=== PATIENT | female | born 1960 | race Two or more races ===

== ENCOUNTER 2020-08-09 13:04 | Outpatient (REF) | payer OTHER, SELFPAY ==
--- NOTE | 2020-08-09 13:03 | CT_ITS ---
EXAMINATION: CT CHEST SCREENING CLINICAL INFORMATION: Nicotine dependence. COMPARISON: CT chest 08/03/2019. TECHNIQUE: Multidetector volumetric CT imaging of the chest is performed without contrast using low dose technique. Additional 2D coronal and sagittal reformatted images and axial 3D maximum intensity projection (MIP) images are generated on the CT workstation. This CT examination was performed using dose optimization techniques as appropriate, variously including the following: *Automated exposure control *Adjustment of mA and/or kV according to patient size (this includes techniques or standardized protocols for targeted exams where dose is matched to indication/reason for exam; i.e. extremities or head) *Use of iterative reconstruction technique DLP: 56 mGy-cm FINDINGS: LUNGS: There is a 4 mm subpleural nodule right lower lobe image 184/6. No additional nodule is seen. The lungs are expanded and clear. MEDIASTINUM: The thyroid lobes are symmetrical and normal. Central trachea and the bronchi are widely patent. Heart size and the great vessels are normal caliber. No pericardial effusion seen. PLEURA: There is no pleural effusion. No pleural mass or thickening. AXILLA: No lymphadenopathy. UPPER ABDOMEN: Visualized liver, spleen, pancreas and bilateral adrenal glands are unremarkable. OSSEOUS STRUCTURES: No lytic or sclerotic process seen. CT/CT lung screening IMPRESSION: Unremarkable examination. ASSESSMENT: Lung-RADS category 2: Benign RECOMMENDATION: Routine low-dose annual CT chest.
== END 2020-08-09 13:05 | disposition home or self-care (01) ==
LOC: HO.CT 13:04
PROVIDERS: Visit Provider Physician Assistant Medical
DX: Z12.2 Encounter for screening for malignant neoplasm of respiratory organs (principal); Z87.891 Personal history of nicotine dependence
CPT/HCPCS: 71250

== ENCOUNTER → 2020-09-18 12:45 | Outpatient (BNVA) | payer OTHER, SELFPAY | PROVIDERS: PCP Physician Assistant; Visit Provider Hospitalist | DX: G47.33 Obstructive sleep apnea (adult) (pediatric) (principal); R07.9 Chest pain, unspecified; R91.8 Other nonspecific abnormal finding of lung field; J45.909 Unspecified asthma, uncomplicated; Z99.89 Dependence on other enabling machines and devices | CPT/HCPCS: 99212 ==

== ENCOUNTER → 2020-10-16 13:28 | Outpatient (BNVA) | payer OTHER, SELFPAY | PROVIDERS: PCP Physician Assistant; Visit Provider Internal Medicine | DX: R07.2 Precordial pain (principal); R06.02 Shortness of breath; G47.33 Obstructive sleep apnea (adult) (pediatric); Z99.89 Dependence on other enabling machines and devices | CPT/HCPCS: 93005; 99202 ==

== ENCOUNTER → 2020-11-12 08:20 | Outpatient (REF) | payer OTHER, SELFPAY ==
--- NOTE | 2020-11-12 08:24 | CA_ITS ---
Transthoracic Echocardiogram Patient (Last, First, Middle): Zainab Wills, Gender: Female Date of : 1960 Age: 59 Procedure Date: 11/12/2020 Procedure Type: Transthoracic Echocardiogram Location: OP Height: 157.48 cm Weight: 89.81 kg BSA: 1.90 m2 Heart Rate: bpm BP: 136 / 80 mmHg Health Care Administrator: ANJELICA Alva MD: Leonel Johnson MD [employer] Operator: Hung Shipman MD Symptoms: R06.02 - Shortness of breath Study Quality: Fair ECG Rhythm: Sinus Conclusions: - 1. Normal LV systolic function with grade 1 diastolic dysfunction 2. Normal cardiac valvular Doppler 3. No pericardial effusion Findings Left Ventricle Normal left ventricular size, thickness, and systolic function. The visually estimated ejection fraction is between 60-65%. Spectral Doppler is indicative of an impaired relaxation filling pattern. E/E prime ratio is <8, consistent with normal filling pressures. Evidence suggests grade I (mild) diastolic dysfunction. Right Ventricle Normal right ventricular cavity size and systolic function. Atria Both atria are normal in size. There is lipomatous hypertrophy of the interatrial septum. There is no evidence of interatrial shunt. Aortic Valve The aortic valve structure and function is likely normal. There is no aortic valve stenosis. There is no aortic valve regurgitation. Mitral Valve Normal mitral valve structure and function. There is trace mitral valve regurgitation. There is no mitral valve stenosis. Pulmonic Valve The pulmonic valve was not well visualized. Tricuspid Valve Likely normal tricuspid valve structure and function. Tricuspid regurgitation envelope is inadequate for calculation of right ventricular systolic pressure. Great Vessels All visible segments of the aorta are normal in size. The pulmonary artery was not well visualized. Venous The inferior vena cava is normal in size and collapses greater than 50% with inspiration. Pericardium/Pleural There is no evidence of pericardial effusion. Prior Study Comparison No significant change compared to prior study dated: 08/12/2019. Measurements 2D Linear Measurements IVSd: 0.99 0.6-0.9/0.6-1.0 cm LVIDd: 4.10 3.9-5.3/4.2-5.9 cm LVIDd Index: 2.16 2.4-3.2/2.2-3.1 cm/m2 LVIDs: 2.57 2.0-3.6 cm LVPWd: 1.00 0.7-1.1 cm Ao Root: 3.00 2.1-3.5 cm LA Diam: 3.20 2.7-3.8/3.0-4.0 cm LAIDs Index: 1.68 1.5-2.3 cm/m2 LV Mass: 163.69 67-162/88-224 g LV Mass Index: 86.15 43-95/49-115 g/m2 LVOT Diam: 2.10 3.0+(-)1.3 cm 2D Systolic Function EF 4C: 65.50 >55% EF 2C: 53.50 >55% EF BiP: 60.70 >55% Mitral Valve MV Pk E: 0.80 MV PK A: 0.98 MV Decel Time: 182.00 E/A: 0.80 E'Lateral: 7.40 E'Medial: 6.64 E/E' Med: 12.10 E/E' Lat: 10.90 PHT: 53.00 MVA PHT: 4.15 Decel [place]: 4.42 Aortic Valve AoV Pk Richie: 1.35 AoV Mn Richie: 0.83 AoV VTI: 0.21 AoV Pk Grad: 7.00 Aov Mn Grad: 3.00 NARCISA Cont.VTI: 2.87 LVOT LVOT Pk Richie: 1.12 LVOT Mn Richie: 0.68 LVOT VTI: 0.17 LVOT Pk Grad: 5.00 LVOT Mn Grad: 2.00 LVOT Diam: 2.10 LVOT Area: 3.46 Diastolic Function MV Pk E: 0.80 MV Pk A: 0.98 E/A: 0.80 E'Medial: 6.64 E/E' Med: 12.10 E' Laterial: 7.40 E/E' Lat: 10.90 Great Vessels Aorta Ao Root-2D: 3.00 2.0-3.7 cm Ao Asc: 3.00 2.1-3.4 cm Updated in Other Vendor System with Status of Final Hung Shipman MD electronically signed on 11/13/2020 5:06:32 PM with status of Final
== END ==
LOC: HO.CARD 08:20
PROVIDERS: Visit Provider Internal Medicine
DX: R07.2 Precordial pain (principal); R06.02 Shortness of breath
CPT/HCPCS: 93306

== ENCOUNTER → 2020-11-23 07:38 | Outpatient (REF) | payer OTHER, SELFPAY ==
--- NOTE | ~2020-11-23 | NM_ITS ---
Myocardial perfusion study Indication: Precordial pain to evaluate for myocardial ischemia Technique: The patient was brought in for a Lexiscan perfusion study on 11/23/2020. Patient performed low-level exercise and was injected 0.4 mg of Lexiscan intravenously. Within a minute of injection, 35 mCi of sestamibi was given intravenously. Images were obtained using the SPECT gamma camera interlaced with the gating device. Images were obtained in supine position. Resting perfusion study was performed on 11/23/2020. Patient was administered 13 mCi of sestamibi intravenously at rest. Images were then obtained in supine position. Images obtained with and without CT attenuation. Total DLP 89 mGy-cm. Images were processed with the software and compared side to side in short axis, horizontal long axis and vertical long axis views. Findings: The stress perfusion study showed non attenuated images show minimally reduced uptake in the distal septum, mostly normal limits. Attenuation corrected images show minimally reduced uptake in the apex of the LV myocardium.. The gated study shows normal LV systolic function with calculated LVEF of 69%. LV cavity is normal in size. The gated study shows normal systolic wall thickening and contraction of segments. Resting study shows attenuation corrected images show mildly reduced uptake in the septum and apex of the LV myocardium. Gating at rest reveals normal systolic wall motion with ejection fraction at 58%. The findings are consistent with normal myocardial perfusion. NM/NM jace perf SPECT rest & str Impression: 1. Myocardial perfusion imaging study shows normal myocardial perfusion 2. Gated LVEF is 69% 3. Transient ischemic dilatation not present EKG is nondiagnostic for ischemia
--- NOTE | 2020-11-23 07:42 | CA_ITS ---
Acquisition Time: 2020-11-23 10:30:31 Total Exercise Time: 00:02:00 Test Indications: Chest Pain Medications: Protocol: LEXISCAN Max HR: 120 BPM 74% of Pred: 162 BPM Max BP: 130/072 mmHG Max Work Load: 1.0 METS Pharmacological stress test using Lexiscan while sitting and moving her L arm. Pt reports to be feeling fatiqued after Lexiscan, denies any anginal sx. SX reversed with Aminophyline 75 mg IV. EKG with no arrhythmias, non-diagnostic for ischemia. Nuclear images to follow. Normotensive response to test. Test reviewed with Dr. Shipman. Referred By: Leonel Johnson Overread By: Jose L Noguera
[2020-11-23 11:02] LABS: Glucose, Whole Blood 79 mg/dL (60-115)
[2020-11-23 11:30] LABS: Glucose, Whole Blood 108 mg/dL (60-115)
== END ==
LOC: HO.CARD 07:38
PROVIDERS: Visit Provider Internal Medicine
DX: R07.2 Precordial pain (principal)
CPT/HCPCS: 78452; 82947; 93017; A9500; J0280; J2785

== ENCOUNTER → 2020-12-11 12:10 | Outpatient (BNVA) | payer OTHER, SELFPAY | PROVIDERS: PCP Physician Assistant; Visit Provider Internal Medicine | DX: R07.2 Precordial pain (principal); R06.02 Shortness of breath; G47.33 Obstructive sleep apnea (adult) (pediatric); R03.0 Elevated blood-pressure reading, without diagnosis of hypertension; Z99.89 Dependence on other enabling machines and devices | CPT/HCPCS: 99212 ==

== ENCOUNTER → 2020-12-20 12:54 | Outpatient (BNVA) | payer OTHER, SELFPAY | PROVIDERS: PCP Physician Assistant; Visit Provider Hospitalist | DX: R07.82 Intercostal pain (principal); G47.33 Obstructive sleep apnea (adult) (pediatric); R91.8 Other nonspecific abnormal finding of lung field; J44.9 Chronic obstructive pulmonary disease, unspecified; Z99.89 Dependence on other enabling machines and devices | CPT/HCPCS: 99212 ==

== ENCOUNTER → 2021-02-14 13:50 | Outpatient (BNVA) | payer OTHER, SELFPAY | PROVIDERS: PCP Physician Assistant; Visit Provider Hospitalist | DX: J44.9 Chronic obstructive pulmonary disease, unspecified (principal); R06.02 Shortness of breath; G47.33 Obstructive sleep apnea (adult) (pediatric); R91.8 Other nonspecific abnormal finding of lung field; J45.40 Moderate persistent asthma, uncomplicated; Z99.89 Dependence on other enabling machines and devices | CPT/HCPCS: 99212 ==

== ENCOUNTER 2021-08-23 14:15 | Outpatient (REF) | payer OTHER, SELFPAY ==
[2021-08-23 15:10] LABS: MANUAL DIFF FLAG NO
[2021-08-23 16:32] LABS: Basophils Percent Auto 0.3 % (0-2); Eosinophils Percent Auto 0.4 % (0-4); Hematocrit 37.7 % (37.0-47.0); Hemoglobin 11.8 g/dl (12.0-16.0); Imm Gran Abs Auto 0.02 X10*3/uL (0.00-0.03); Imm Gran Pct Auto 0.3 % (0.0-0.4); Lymphocytes Absolute Auto 2.3 X10*3/uL (1.2-4.9); Lymphocytes Percent Auto 32.3 % (20-40); Mean Corpuscular HGB Conc 31.3 g/dl (31.0-35.0); Mean Corpuscular Hemoglobin 25.5 pg (27.0-33.0); Mean Corpuscular Volume 81.6 fL (80.0-98.0); Mean Platelet Volume 11.9 fL (9.4-12.3); Monocytes Absolute Auto 0.3 X10*3/uL (0.1-1.2); Monocytes Percent Auto 4.6 % (2-11); Neutrophils Absolute Auto 4.5 x10*3/uL (2.0-8.3); Neutrophils Percent Auto 62.1 % (45-73); Platelet Count 234 X10*3/uL (160-400); Red Blood Count 4.62 X10*6/uL (4.20-5.50); Red Cell Distribution Width 14.2 % (11.0-16.0); White Blood Count 7.2 X10*3/uL (4.8-10.8)
[2021-08-23 17:11] LABS: Anion Gap 12 (12-20); Blood Urea Nitrogen 11 mg/dL (9-16); Calcium 9.1 mg/dL (8.4-10.2); Carbon Dioxide 28 mmol/L (22-29); Chloride 105 mmol/L (96-108); Estimated Glomerular Filt Rate > 60; Glucose Random 142 mg/dL (60-115); Potassium 3.7 mmol/L (3.3-5.1); Sodium 141 mmol/L (135-145)
[2021-08-23 17:15] LABS: Troponin-I High Sensitivity < 3.5 ng/L (<3.5-17.0)
[2021-08-23 17:35] LABS: TSH reflex Free T4 1.25 uIU/mL (0.32-4.0)
[2021-08-23 17:46] LABS: Erythrocyte Sedimentation Rate 16 MM/HR (0-20)
== END 2021-08-23 14:16 | disposition home or self-care (01) ==
LOC: HO.LAB 14:15
PROVIDERS: PCP Physician Assistant; Visit Provider Hospitalist
DX: J44.9 Chronic obstructive pulmonary disease, unspecified (principal); R00.2 Palpitations; R07.82 Intercostal pain; J45.40 Moderate persistent asthma, uncomplicated; R91.8 Other nonspecific abnormal finding of lung field; G47.33 Obstructive sleep apnea (adult) (pediatric); Z99.89 Dependence on other enabling machines and devices
CPT/HCPCS: 36415; 80048; 84443; 84484; 85025; 85652; 99212

== ENCOUNTER → 2021-12-20 14:05 | Outpatient (BNVA) | payer OTHER, SELFPAY | PROVIDERS: PCP Physician Assistant; Visit Provider Hospitalist | DX: J44.9 Chronic obstructive pulmonary disease, unspecified (principal); J45.40 Moderate persistent asthma, uncomplicated; G47.33 Obstructive sleep apnea (adult) (pediatric); R91.8 Other nonspecific abnormal finding of lung field; R00.2 Palpitations; Z99.89 Dependence on other enabling machines and devices | CPT/HCPCS: 99212 ==

== ENCOUNTER 2021-12-31 14:54 | Outpatient (REF) | payer OTHER, SELFPAY ==
--- NOTE | ~2021-12-31 | CT_ITS ---
EXAMINATION: CT CHEST SCREENING CLINICAL INFORMATION: Former smoker. Quit 5 years ago. COMPARISON: Previous chest CT scans most recent July 2020 TECHNIQUE: Multidetector volumetric CT imaging of the chest is performed without contrast using low dose technique. Additional 2D coronal and sagittal reformatted images and axial 3D maximum intensity projection (MIP) images are generated on the CT workstation. This CT examination was performed using dose optimization techniques as appropriate, variously including the following: *Automated exposure control *Adjustment of mA and/or kV according to patient size (this includes techniques or standardized protocols for targeted exams where dose is matched to indication/reason for exam; i.e. extremities or head) *Use of iterative reconstruction technique DLP: 67 mGy-cm FINDINGS: LUNGS: There is a 3 mm peripheral right lower lobe nodule axial image 246 series 5 that is stable. The lungs are otherwise clear. No other pulmonary nodule is seen. No endobronchial or endotracheal lesion is seen.. MEDIASTINUM: The mediastinum is normal. PLEURA: There is no pleural effusion. No pleural mass or thickening. AXILLA: No lymphadenopathy. UPPER ABDOMEN: Unremarkable OSSEOUS STRUCTURES: There are degenerative changes of the spine. CT/CT lung screening IMPRESSION: Stable right lower lobe nodule. ASSESSMENT: Lung-RADS category 2: Benign RECOMMENDATION: Annual low-dose chest CT follow-up recommended.
== END 2021-12-31 14:55 | disposition home or self-care (01) ==
LOC: HO.CT 14:54
PROVIDERS: Visit Provider Physician Assistant Medical
DX: Z12.2 Encounter for screening for malignant neoplasm of respiratory organs (principal); F17.200 Nicotine dependence, unspecified, uncomplicated
CPT/HCPCS: 71271

== ENCOUNTER → 2023-02-24 14:27 | Outpatient (BNVA) | payer OTHER, SELFPAY | PROVIDERS: PCP Physician Assistant; Visit Provider Hospitalist | DX: J44.9 Chronic obstructive pulmonary disease, unspecified (principal); J45.909 Unspecified asthma, uncomplicated; G47.33 Obstructive sleep apnea (adult) (pediatric); R91.8 Other nonspecific abnormal finding of lung field; R00.2 Palpitations; Z99.89 Dependence on other enabling machines and devices | CPT/HCPCS: 99212 ==

== ENCOUNTER 2023-02-27 13:05 | Outpatient (REF) | payer OTHER, SELFPAY ==
--- NOTE | ~2023-02-27 | CT_ITS ---
EXAMINATION: CT CHEST SCREENING CLINICAL INFORMATION: Former smoker. Quit 7 years ago. 80 pack year history. COMPARISON: None available. TECHNIQUE: Multidetector volumetric CT imaging of the chest is performed without contrast using low dose technique. Additional 2D coronal and sagittal reformatted images and axial 3D maximum intensity projection (MIP) images are generated on the CT workstation. This CT examination was performed using dose optimization techniques as appropriate, variously including the following: *Automated exposure control *Adjustment of mA and/or kV according to patient size (this includes techniques or standardized protocols for targeted exams where dose is matched to indication/reason for exam; i.e. extremities or head) *Use of iterative reconstruction technique DLP: 71 mGy-cm FINDINGS: LUNGS: Mild emphysema. 4 mm right lower lobe nodule axial image 239 series 5. Subsegmental atelectasis in the lingula. MEDIASTINUM: The mediastinum is normal. CORONARY ARTERY CALCIFICATION: Mild PLEURA: There is no pleural effusion. No pleural mass or thickening. AXILLA: No lymphadenopathy. UPPER ABDOMEN: Unremarkable OSSEOUS STRUCTURES: Degenerative changes of the spine. CT/CT lung screening IMPRESSION: Mild emphysema. Stable right lower lobe nodule. ASSESSMENT: Lung-RADS category 2: Benign RECOMMENDATION: Annual low-dose chest CT follow-up recommended
== END 2023-02-27 13:06 | disposition home or self-care (01) ==
LOC: HO.CT 13:05
PROVIDERS: PCP Physician Assistant; Visit Provider Physician Assistant Medical
DX: Z12.2 Encounter for screening for malignant neoplasm of respiratory organs (principal); Z87.891 Personal history of nicotine dependence
CPT/HCPCS: 71271

== ENCOUNTER 2024-03-03 14:12 | Outpatient (AMB) | payer MEDICAID, SELFPAY ==
[2024-03-03 14:33] VITALS: PULSE 89; O2SAT 98; BMI 37.3
--- NOTE | 2024-03-03 14:33 | MHC.OFFVIS ---
Vital Signs 03/03/24 14:33 Height 5 ft 2 in Weight 204 lb BMI 37.3 Pulse 89 Pulse Source Pulse Oximeter Pulse Oximetry (%) 98 Oxygen Delivery Method Room Air Intake Visit Reasons: obstructive sleep apnea Knowledge Management Consultant Required: No Allergies acetaminophen [Percocet] Allergy (Severe, Verified 03/03/24 14:34) Redness and Vomitting amoxicillin Allergy (Severe, Verified 03/03/24 14:34) Redness and Vomitting oxycodone [Percocet] Allergy (Severe, Verified 03/03/24 14:34) Redness and Vomitting HPI Comments Details: The patient is a 63-year-old woman with known history of ANN on CPAP in addition to COPD.. From the cardiac standpoint, no history of any known coronary disease myocardial infarction or any other cardiac concerns. She is morbidly obese. She has type 2 diabetes and hypertension. Her medication list is not clear. She gets exertional shortness of breath. She also gets chest discomfort at different times. Sometimes at rest and sometimes during exertion. She also feels it a lot during night times. So far, completed an echocardiogram and stress test. 2020 the patient is here for pulmonary follow-up visit. She continues uses CPAP. CPAP therapy continues to be affecting beneficial. She does use it for more than 4 hours a night. We did download her machine her AHI is down to 2.3. It appears that the machine only goes up to 10 cm of water. She appears to need more than that. I will increase it to 12 cm of water maximum pressure. Patient needs to get supplies from [employer]. I will send a prescription over to them. In the meantime her respiratory status has been stable on the current respiratory inhaler. She has not had to use her rescue inhaler. Her biggest complaint is his left-sided chest discomfort. She did have cardiac stress test which was negative for any ischemic heart disease. The patient does have tenderness on palpation over the costochondral joints. 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 Patient is very uncomfortable. Makes it hard for her to breathe in because of the discomfort. She denies any trauma to the chest. She does have reflux disease she does take medication for it. 02/14/2021 the patient is here for pulmonary follow-up visit. Overall she is doing well. She still struggling with the CPAP because she feels like it is not enough pressure. Therefore, I increased her ramp pressure to 6 and her starting pressure to 8. In the meantime we also adjusted her mask. Seems to be feeling better. The CPAP therapy has been affecting beneficial in she will use it more than 4 hours a night. She continues on the Breo and also on the Incruse daily. She does have Xopenex that she uses as needed. But, does not use it more than twice a week. We did briefly review her last CT scan of the chest demonstrating small 4 mm pulmonary nodule. She is scheduled to have a repeat CT scan the fall of 2020. 08/23/2021 the patient is here for a pulmonary follow-up visit. Overall the patient has been still struggling with pain. She describes some chest discomfort. Moderate severity. Associated with palpitations.It is not allowing her to sleep. Primarily on the left shoulder area. It is likely musculoskeletal. It is reassuring that she did have a stress test recently demonstrating no ischemic changes which is very reassuring. Social reassuring that she had a recent CT scan of the chest about a year ago without any evidence of any abnormalities. She is scheduled to undergo repeat CT scan as part of the lung cancer screening program to better address the recent discomfort. In the meantime is reasonable for her to undergo blood work. She is already on gabapentin which she uses 3 times a day. On and have her increase the nighttime dose to help with neuropathic pain at night and also help her with sleep. I am hopeful that she will feel better by making that medication change. 12/20/2021 the patient is here for a pulmonary follow-up visit. Overall the patient has been doing well. she has not been using her CPAP therapy. Although she feels well and she is feeling like she is getting good sleep and waking up rested. the patient does carry some cardiovascular risk factors. Therefore, will consider repeating her sleep study at some point in the future. The patient had a cardiac workup which was negative for any ischemic changes which is reassuring. In addition to that the patient does have underlying pulmonary nodules. She is taking part in the lung cancer screening program. She was supposed to have a CT scan in July 2021. Although, for some reason he did not happen. May have been issues with pandemic. I did restart to the lung cancer screening program to make sure that she gets a call and get her scheduled CT scan completed. Meantime she is going to continue with the current respiratory regimen which she seems to be tolerating. 02/24/2023 the patient is here for pulmonary follow-up visit. The patient is no longer using the CPAP. She could not tolerated. Although she is having hard time sleeping because of nasal congestion and significant allergies. She is taking Zyrtec with minimal response. Therefore will going to go ahead and add singular and also other nasal sprays. Hopefully we can improve her sleep by improving her nasal congestion and allergy symptoms allergy symptoms. The patient has not been using the Breo the Incruse. She has felt well. Although she does need a rescue inhaler which are per provide. The patient is participating in the lung cancer screening program. Her last CT scan was December 2021. She is due for CAT scan now. 03/03/2024 the patient is here for a pulmonary follow-up visit. Overall the patient has been doing fairly bad. She has not been able to use her respiratory medications the last 2 weeks. I believe her primary care doctor had been ordering them and they have been available. I did send all her medications over. She should be on Breo and Incruse. In addition to that she is having some breathlessness right now moderate severity. We did give her a treatment without albuterol and ipratropium. She did feel some relief. She has not having any wheezing so therefore him believe she needs any steroids. She also has diabetes I do not want to cause her hyperglycemia. At this point she is doing better will go ahead and just started all her medications. If the patient does not feel like she is getting any better she will call the office and will give her further recommendations. As far as her CPAP she has not been able to tolerated. I did request that she bring it in to the next visit we can try to adjust the pressures if she likes. [facility] Medical History (Updated 07/31/22 @ 09:04 by Saniya Alvarez) Palpitations Asthma-COPD overlap syndrome ANN on CPAP Pulmonary nodules Asthma Family History (System 07/31/22 @ 09:04 by Saniya Alvarez) Other Asthma Social History (System 07/31/22 @ 09:04 by Saniya Alvarez) Patient Tobacco Use Status: Never used Tobacco Review of Systems Const Denies night sweats ENT Denies change in voice, Denies lip swelling, Denies mouth pain, Reports nasal congestion, Reports nasal discharge and Denies tongue swelling Card Denies chest pain and Denies palpitations Resp Reports cough GI Denies abdominal pain Musc Denies no additional complaints Neuro Denies Neuro-related abnormal movements Psych Denies no additional complaints Endo Denies palpitations Dante/Lymph Denies easy bleeding and Denies lymphadenopathy Aller/Immun Denies lip swelling and Denies tongue swelling Physical Exam Vital Signs: Last Vital Signs Pulse 89 03/03/24 14:33 Pulse Ox 98 03/03/24 14:33 Oxygen Delivery Method Room Air 03/03/24 14:33 BMI result Body Mass Index 37.3 Const General: alert Neck Neck: Yes normal visual inspection, Yes full ROM and Yes no lymphadenopathy Chest Chest palpation & inspection: normal inspection of the chest Resp Auscultation: diminished lung sounds Cardio Rate: regular rate Rhythm: regular rhythm Heart sounds: S1 normal heart sound present and S2 normal heart sound present GI Palpation (GI): Soft to palpation and nontender Auscultation: normal bowel sounds Skin General skin exam: rashes and/or lesions noted Office Procedures Nebulizer Treatment Nebulizer Treatment [id number] RX initial, or Nebulizer Subsequent Treatment Office Meds ipratropium 0.5 mg-albuterol 3 mg (2.5 mg base)/3 mL nebulization soln Performing Provider: Grover Wills MD Performing Location: [facility] [place] [facility] Administered by: Ana Denis LPN on 03/04/24 09:02 Dose Route Admin Location Dispensed Lot Number Expiration Date [facility] [employer] 3 mL inhalation 3 mL [id number] 08/11/25 [id number] [employer] [place] Assessment & Plan Assessment & Plan (1) Asthma-COPD overlap syndrome: Code(s): J44.9 - Chronic obstructive pulmonary disease, unspecified Category: Medical (2) ANN on CPAP: Code(s): G47.33 - Obstructive sleep apnea (adult) (pediatric); Z99.89 - Dependence on other enabling machines and devices Category: Medical (3) Pulmonary nodules: Code(s): R91.8 - Other nonspecific abnormal finding of lung field Category: Medical (4) Asthma: Code(s): J45.909 - Unspecified asthma, uncomplicated Category: Medical (5) Palpitations: Code(s): R00.2 - Palpitations Category: Medical Plan Continue Breo 200 and Incruse daily short acting beta agonist, Xopenex as needed continue singulair continue astelin and fluticasone nasal spray Holding PAP therapy, positional therapy CT scan of the chest through LDCT program gabapentin at night for sleep Follow-up in 6-12 months Orders: Orders AMB Nebulizer Treatment 03/03/24 J45.40 - Moderate persistent asthma, uncomplicated Medications: Changed From Xopenex HFA 45 mcg/actuation (levalbuterol tartrate) 2 puffs inhalation Q6H PRN 15 ea 11RF for wheezing NS J45.909 - Unspecified asthma, uncomplicated To Xopenex HFA 45 mcg/actuation (levalbuterol tartrate) 2 puffs inhalation Q6H PRN 1 ea 11RF for wheezing 30 days NS J45.909 - Unspecified asthma, uncomplicated Refilled fluticasone furoate-vilanterol 200-25 mcg/dose (Breo Ellipta) 1 ea PO DAILY 60 ea 11RF J45.909 - Unspecified asthma, uncomplicated montelukast 10 mg PO DAILY 30 tabs 11RF 30 days J45.909 - Unspecified asthma, uncomplicated cetirizine (Zyrtec) 10 mg PO DAILY PRN 30 tabs 11RF allergy symptoms umeclidinium 62.5 mcg/actuation (Incruse Ellipta) 1 inh inhalation DAILY 30 ea 11RF 30 days J45.909 - Unspecified asthma, uncomplicated azelastine administer into each nostril 2 sprays intranasal BID 30 mL 11RF 30 days Coding Level of Care Code Est Pt Level 4 (03145) Diagnoses Asthma-COPD overlap syndrome J44.9 ANN on CPAP G47.33; Z99.89 Pulmonary nodules R91.8 Asthma J45.909 Palpitations R00.2 CPT Codes Nebulizer Treatment - Nebulizer Treatment, initial or subsequent: [id number] RX initial, or Nebulizer Subsequent Treatment ([id number]) Time Spent (min) 17
== END 2024-03-03 14:57 | disposition home or self-care (01) ==
PROVIDERS: PCP Physician Assistant; Visit Provider Hospitalist
DX: J44.9 Chronic obstructive pulmonary disease, unspecified (principal); G47.33 Obstructive sleep apnea (adult) (pediatric); Z99.89 Dependence on other enabling machines and devices; R91.8 Other nonspecific abnormal finding of lung field; J45.909 Unspecified asthma, uncomplicated; R00.2 Palpitations; J45.40 Moderate persistent asthma, uncomplicated
CPT/HCPCS: 99214

== ENCOUNTER → 2024-03-03 14:12 | Outpatient (BNVA) | payer MEDICAID, SELFPAY | PROVIDERS: PCP Physician Assistant; Visit Provider Hospitalist | DX: G47.33 Obstructive sleep apnea (adult) (pediatric) (principal); J44.9 Chronic obstructive pulmonary disease, unspecified; J45.909 Unspecified asthma, uncomplicated; R00.2 Palpitations; R91.8 Other nonspecific abnormal finding of lung field; Z99.89 Dependence on other enabling machines and devices | CPT/HCPCS: 94640; 99212 ==

== ENCOUNTER 2024-08-17 10:29 | Outpatient (REF) | payer MEDICAID, SELFPAY | END 2024-08-17 10:30 | disposition home or self-care (01) | LOC: HO.CT 10:29 | PROVIDERS: PCP Physician Assistant; Visit Provider Physician Assistant Medical | DX: Z12.2 Encounter for screening for malignant neoplasm of respiratory organs (principal); Z87.891 Personal history of nicotine dependence | CPT/HCPCS: 71271 ==

== ENCOUNTER 2024-10-14 10:38 | Outpatient (AMB) | payer MEDICAID, SELFPAY ==
[2024-10-14 10:47] VITALS: BP 122/62; PULSE 86; O2SAT 99; BMI 36.3
--- NOTE | 2024-10-14 10:47 | MHC.OFFVIS ---
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 From the cardiac standpoint, no history of any known coronary disease myocardial infarction or any other cardiac concerns. She is morbidly obese. She has type 2 diabetes and hypertension. Her medication list is not clear. She gets exertional shortness of breath. She also gets chest discomfort at different times. Sometimes at rest and sometimes during exertion. She also feels it a lot during night times. So far, completed an echocardiogram and stress test. 2020 the patient is here for pulmonary follow-up visit. She continues uses CPAP. CPAP therapy continues to be affecting beneficial. She does use it for more than 4 hours a night. We did download her machine her AHI is down to 2.3. It appears that the machine only goes up to 10 cm of water. She appears to need more than that. I will increase it to 12 cm of water maximum pressure. Patient needs to get supplies from [facility]. I will send a prescription over to them. In the meantime her respiratory status has been stable on the current respiratory inhaler. She has not had to use her rescue inhaler. Her biggest complaint is his left-sided chest discomfort. She did have cardiac stress test which was negative for any ischemic heart disease. The patient does have tenderness on palpation over the costochondral joints. 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 Patient is very uncomfortable. Makes it hard for her to breathe in because of the discomfort. She denies any trauma to the chest. She does have reflux disease she does take medication for it. 02/14/2021 the patient is here for pulmonary follow-up visit. Overall she is doing well. She still struggling with the CPAP because she feels like it is not enough pressure. Therefore, I increased her ramp pressure to 6 and her starting pressure to 8. In the meantime we also adjusted her mask. Seems to be feeling better. The CPAP therapy has been affecting beneficial in she will use it more than 4 hours a night. She continues on the Breo and also on the Incruse daily. She does have Xopenex that she uses as needed. But, does not use it more than twice a week. We did briefly review her last CT scan of the chest demonstrating small 4 mm pulmonary nodule. She is scheduled to have a repeat CT scan the fall of 2020. 08/23/2021 the patient is here for a pulmonary follow-up visit. Overall the patient has been still struggling with pain. She describes some chest discomfort. Moderate severity. Associated with palpitations.It is not allowing her to sleep. Primarily on the left shoulder area. It is likely musculoskeletal. It is reassuring that she did have a stress test recently demonstrating no ischemic changes which is very reassuring. Social reassuring that she had a recent CT scan of the chest about a year ago without any evidence of any abnormalities. She is scheduled to undergo repeat CT scan as part of the lung cancer screening program to better address the recent discomfort. In the meantime is reasonable for her to undergo blood work. She is already on gabapentin which she uses 3 times a day. On and have her increase the nighttime dose to help with neuropathic pain at night and also help her with sleep. I am hopeful that she will feel better by making that medication change. 12/20/2021 the patient is here for a pulmonary follow-up visit. Overall the patient has been doing well. she has not been using her CPAP therapy. Although she feels well and she is feeling like she is getting good sleep and waking up rested. the patient does carry some cardiovascular risk factors. Therefore, will consider repeating her sleep study at some point in the future. The patient had a cardiac workup which was negative for any ischemic changes which is reassuring. In addition to that the patient does have underlying pulmonary nodules. She is taking part in the lung cancer screening program. She was supposed to have a CT scan in July 2021. Although, for some reason he did not happen. May have been issues with pandemic. I did restart to the lung cancer screening program to make sure that she gets a call and get her scheduled CT scan completed. Meantime she is going to continue with the current respiratory regimen which she seems to be tolerating. 02/24/2023 the patient is here for pulmonary follow-up visit. The patient is no longer using the CPAP. She could not tolerated. Although she is having hard time sleeping because of nasal congestion and significant allergies. She is taking Zyrtec with minimal response. Therefore will going to go ahead and add singular and also other nasal sprays. Hopefully we can improve her sleep by improving her nasal congestion and allergy symptoms allergy symptoms. The patient has not been using the Breo the Incruse. She has felt well. Although she does need a rescue inhaler which are per provide. The patient is participating in the lung cancer screening program. Her last CT scan was December 2021. She is due for CAT scan now. 03/03/2024 the patient is here for a pulmonary follow-up visit. Overall the patient has been doing fairly bad. She has not been able to use her respiratory medications the last 2 weeks. I believe her primary care doctor had been ordering them and they have been available. I did send all her medications over. She should be on Breo and Incruse. In addition to that she is having some breathlessness right now moderate severity. We did give her a treatment without albuterol and ipratropium. She did feel some relief. She has not having any wheezing so therefore him believe she needs any steroids. She also has diabetes I do not want to cause her hyperglycemia. At this point she is doing better will go ahead and just started all her medications. If the patient does not feel like she is getting any better she will call the office and will give her further recommendations. As far as her CPAP she has not been able to tolerated. I did request that she bring it in to the next visit we can try to adjust the pressures if she likes. [facility] Medical History (Updated 10/16/24 @ 22:21 by Grover Wills MD) Allergies Asthma-COPD overlap syndrome Asthma ANN on CPAP Pulmonary nodules Personal history of nicotine dependence Palpitations Family History (System 07/31/22 @ 09:04 by Saniya Alvarez) Other Asthma Social History Patient Tobacco Use Status: Former Tobacco user Review of Systems Const Denies night sweats ENT Denies change in voice, Denies lip swelling, Denies mouth pain, Reports nasal congestion, Reports nasal discharge and Denies tongue swelling Card Denies chest pain and Denies palpitations Resp Reports cough GI Denies abdominal pain Musc Denies no additional complaints Neuro Denies Neuro-related abnormal movements Psych Denies no additional complaints Endo Denies palpitations Adnte/Lymph Denies easy bleeding and Denies lymphadenopathy Aller/Immun Denies lip swelling and Denies tongue swelling Physical Exam Vital Signs: Last Vital Signs Pulse 86 10/14/24 10:47 BP 122/62 10/14/24 10:47 Pulse Ox 99 10/14/24 10:47 Oxygen Delivery Method Room Air 10/14/24 10:47 BMI result Body Mass Index 36.3 Const General: alert Neck Neck: Yes normal visual inspection, Yes full ROM and Yes no lymphadenopathy Chest Chest palpation & inspection: normal inspection of the chest Resp Auscultation: diminished lung sounds Cardio Rate: regular rate Rhythm: regular rhythm Heart sounds: S1 normal heart sound present and S2 normal heart sound present GI Palpation (GI): Soft to palpation and nontender Auscultation: normal bowel sounds Skin General skin exam: rashes and/or lesions noted Assessment & Plan Assessment & Plan (1) Asthma-COPD overlap syndrome: Code(s): J44.9 - Chronic obstructive pulmonary disease, unspecified Category: Medical (2) ANN on CPAP: Comment: Not using PAP therapy Code(s): G47.33 - Obstructive sleep apnea (adult) (pediatric); Z99.89 - Dependence on other enabling machines and devices Category: Medical (3) Pulmonary nodules: Code(s): R91.8 - Other nonspecific abnormal finding of lung field Category: Medical (4) Asthma: Code(s): J45.909 - Unspecified asthma, uncomplicated Category: Medical (5) Allergies: Code(s): T78.40XA - Allergy, unspecified, initial encounter Category: Medical Qualifiers: Encounter type: initial encounter Qualified Code(s): T78.40XA - Allergy, unspecified, initial encounter (6) Palpitations: Code(s): R00.2 - Palpitations Category: Medical (7) Chest pain: Code(s): R07.9 - Chest pain, unspecified Category: Medical Qualifiers: Chest pain type: intercostal pain Qualified Code(s): R07.82 - Intercostal pain Plan Continue Breo 200 restart Incruse daily start Azithromycin x 5 days short acting beta agonist, Xopenex as needed continue singulair continue astelin and fluticasone nasal spray stopped PAP therapy, positional therapy CT scan of the chest through LDCT program gabapentin at night for sleep needs anebulizer for xopenex use bloodwork and allergy testing Follow-up in 4-6 months Orders: Orders Complete Blood Count Auto Diff 10/14/24 J45.40 - Moderate persistent asthma, uncomplicated, R07.82 - Intercostal pain, T78.40XA - Allergy, unspecified, initial encounter Immunoglobulin E 10/14/24 J45.40 - Moderate persistent asthma, uncomplicated, R07.82 - Intercostal pain, T78.40XA - Allergy, unspecified, initial encounter Resp Allergy Profile Region I 10/14/24 J45.40 - Moderate persistent asthma, uncomplicated, R07.82 - Intercostal pain, R91.1 - Solitary pulmonary nodule, T78.40XA - Allergy, unspecified, initial encounter Troponin-I High Sensitivity 10/14/24 J45.40 - Moderate persistent asthma, uncomplicated, R07.82 - Intercostal pain, T78.40XA - Allergy, unspecified, initial encounter Basic Metabolic Panel 10/14/24 J45.40 - Moderate persistent asthma, uncomplicated, R07.82 - Intercostal pain, T78.40XA - Allergy, unspecified, initial encounter Erythrocyte Sedimentation Rate 10/14/24 J45.40 - Moderate persistent asthma, uncomplicated, R07.82 - Intercostal pain, T78.40XA - Allergy, unspecified, initial encounter Medications: New azithromycin 500 mg PO DAILY 5 tabs 0RF 5 days levalbuterol HCl 1.25 mg (3 mL) inhalation BID 180 mL 5RF 30 days J44.9 - Chronic obstructive pulmonary disease, unspecified Refilled umeclidinium 62.5 mcg/actuation (Incruse Ellipta) 1 inh inhalation DAILY 30 ea 11RF 30 days J45.909 - Unspecified asthma, uncomplicated fluticasone furoate-vilanterol 200-25 mcg/dose (Breo Ellipta) 1 ea PO DAILY 60 ea 11RF J45.909 - Unspecified asthma, uncomplicated Coding Level of Care Code Est Pt Level 4 (94927) Diagnoses Asthma-COPD overlap syndrome J44.9 ANN on CPAP G47.33; Z99.89 Pulmonary nodules R91.8 Asthma J45.909 Allergy, initial encounter T78.40XA Encounter type: initial encounter Palpitations R00.2 Intercostal pain R07.82 Chest pain type: intercostal pain Time Spent (min) 16
--- OUTSIDE RECORDS SUMMARY | 2024-10-14 12:09 | XMS_ITS | Continuity of Care Document ---
Author Organization [facility] Address [address] [place] [address]- Care Team Providers Care Child Center Assistant Name Role Phone Ej Balderas Primary Care Physician [phone] Encounter [facility] [place] Date(s): 08/23/24 - 09/22/24 [facility] [address] [place] [id number] Encounter Type: Triage Allergies, Adverse Reactions, Alerts Substance Criticality Severity Reaction Reaction Severity Status amoxicillin face turns red and burning sensation Active Percocet 5/325 face turns re d and burning sensation Active penicillin itching, redness Ac tive Immunizations Given and Recorded Vaccine Date Status Refusal Reason tetanus/diphtheria/pertussis, acel(Tdap) 05/04/10 Given Medications Alcohol Pads See Instructions, # 200 each, Refills 11, Tot. Refills 11, Maintenance, use for insulin injections and for BG testing, up to 8 times daiily for Dx E11.9, 12/31/23 11:04:00 AM EDT, Compound, 160.02, cm, 12/17/23 14:45:00 EST, Height Start Date: 12/31/23 Status: Ordered Quantity: 200.0 Unit: each Repeat number: 12 ascorbic acid 500 mg oral tablet 1 tablet = 500 mg, By Mouth, Daily, # 30 tablet, 0 Refills, Maintenance, 01/31/13 11:29:10 AM EDT, Tablet Start Date: 01/31/13 Status: Ordered Quantity: 30.0 Unit: tablet Repeat number: 1 atorvastatin 20 mg oral tablet 1 tablet, By Mouth, Daily, # 90 tablet, 1 Refills, Maintenance, 07/13/24 10:33:00 AM EDT, [id number], 160.02, cm, 06/29/24 15:39:00 EDT, Height Start Date: 07/13/24 Status: Ordered Quantity: 90.0 Unit: tablet Repeat number: 1 Breo Ellipta 200 mcg-25 mcg/inh inhalation powder 1 puffs, Inhalation, Daily, 0 Refills, Maintenance, 12/29/19 5:00:00 PM EDT, Powder Start Date: 12/29/19 Status: Ordered Repeat number: 1 budesonide-formoterol 160 mcg-4.5 mcg/inh inhalation aerosol with adapter 2, puffs, Inhalation, 2 times a day, # 10.2 Gm, Refills 0, Maintenance, 12/29/19 5:00:00 PM EDT, Aerosol Start Date: 12/29/19 Status: Ordered Quantity: 10.2 Unit: g Repeat number: 1 Cardizem CD 240 mg/24 hours oral capsule, extended release 1 capsule, By Mouth, Daily, please have pcp fill next time, # 30 capsule, 6 Refills, Maintenance, 04/04/13 1:45:12 PM EDT, [facility]/pharmacy #[id number] Start Date: 04/04/13 Stop Date: 10/31/13 Status: Ordered Quantity: 30.0 Unit: capsule Repeat number: 7 Cetirizine = 10 mg, By Mouth, Daily, 0 Refills, Maintenance, 12/29/19 5:01:00 PM EDT Start Date: 12/29/19 Status: Ordered Repeat number: 1 cholecalciferol 5000 intl units oral capsule 1 capsule = 5,000 International_Units, By Mouth, Every week, 0 Refills, Maintenance, 01/28/13 4:20:17 AM EDT Start Date: 01/28/13 Status: Ordered Repeat number: 1 clonazepam 1 mg oral tablet 1 tablet = 1 mg, By Mouth, 3 times a day, # 12 tablet, 0 Refills, Maintenance, 01/31/13 10:47:33 AM EDT, Tablet Start Date: 01/31/13 Status: Ordered Quantity: 12.0 Unit: tablet Repeat number: 1 Clotrimazole 1% Topical 1 application, Topically, 2 times a day, 0 Refills, Maintenance, Cream Start Date: 12/29/19 Status: Ordered Repeat number: 1 cromolyn ophthalmic 4% solution 1 drops, Eyes, Both, 4 times a day, # 10 mL, 0 Refills, Maintenance, 05/18/12 2:29:11 AM EDT, Solution Start Date: 05/18/12 Status: Ordered Quantity: 10.0 Unit: mL Repeat number: 1 diclofenac 1% topical gel Topically, 0 Refills, Maintenance, 12/29/19 5:03:00 PM EDT Start Date: 12/29/19 Status: Ordered Repeat number: 1 Dilaudid 2 mg oral tablet 1 tablet = 2 mg, By Mouth, Every 6 hours, PRN for pain, 0 Refills, Maintenance, 02/26/21 11:05:00 AMEDT, Tablet, Partial fill upon patient request if the prescription is for a schedule II opioid drug. Start Date: 02/26/21 Status: Ordered Repeat number: 1 docusate sodium 100 mg oral capsule 1 capsule = 100 mg, By Mouth, 2 times a day, # 30 capsule, 0 Refills, Maintenance, 01/31/13 11:29:17AM EDT, Capsule Start Date: 01/31/13 Status: Ordered Quantity: 30.0 Unit: capsule Repeat number: 1 doxepin 10 mg oral capsule 1 capsule = 10 mg, By Mouth, 0 Refills, Maintenance, 12/29/19 5:04:00 PM EDT Start Date: 12/29/19 Status: Ordered Repeat number: 1 ferrous sulfate 160 mg oral tablet, extended release 1 tablet = 160 mg, By Mouth, Daily, # 90 tablet, 3 Refills, Maintenance, 05/18/24 5:55:00 PM EDT, ER Tablet, [facility]/pharmacy #[id number], Partial fill upon patient request if the prescription is for a schedule II opioid drug., 160.02, cm, 02/11/24 13:41:00 EDT, Height Start Date: 05/18/24 Status: Ordered Quantity: 90.0 Unit: tablet Repeat number: 4 FREESTYLE NAJMA 14 DAY SENSOR FREESTYLE NAJMA 14 DAY SENSOR, See Instructions, # 2 each, Refills 8, Tot. Refills 8, Maintenance, Use to monitor blood glucose levels before meals and at bedtime. E11.9, 10/23/20 11:01:00 AM EST, Supply, 160.02, cm, 08/30/20 11:21:00 EST, Height, 83.4, kg, 01/10/20 7:33:00 EDT, Dry Weight Start Date: 10/23/20 Status: Ordered Quantity: 2.0 Unit: each Repeat number: 9 FreeStyle najma 2 14 Day sensor FreeStyle najma 2 14 Day sensor, See Instructions, # 2 each, Refills 11, Tot. Refills 11, Maintenance, Use sensor to check blood glucose continously, E11.65, 11/22/20 4:10:00 PM EST, Supply, 160.02, cm, 08/30/20 11:21:00 EST, Height, 83.4, kg, 01/10/20 7:33:00 EDT, Dry Weight Start Date: 11/22/20 Status: Ordered Quantity: 2.0 Unit: each Repeat number: 12 FREESTYLE NAJMA READER FREESTYLE NAJMA READER, See Instructions, # 1 each, Refills 0, Tot. Refills 0, Maintenance, Use to monitor blood glucose levels before meals and at bedtime. E11.9, 08/02/20 2:53:00 PM EDT, Supply, 160.02, cm, 05/28/20 10:36:00 EDT, Height, 83.4, kg, 01/10/20 7:33:00 EDT, Dry Weight Start Date: 08/02/20 Status: Ordered Quantity: 1.0 Unit: each Repeat number: 1 Freestyle Najma Sensor See Instructions, # 1 each, Refills 0, Tot. Refills 0, Maintenance, Use sensor to monitor blood glucose 4x a day., 10/08/20 10:21:00 AM EST, Needs insurance override. Sensor fell of early., Supply, 160.02, cm, 08/30/20 11:21:00 EST, Height, 83.4, kg, 01/10/20 7:33:00 EDT, Dry Weight Start Date: 10/08/20 Stop Date: 11/07/20 Status: Ordered Quantity: 1.0 Unit: each Repeat number: 1 Freestyle Lite Lancets See Instructions, # 200 each, Refills 6, Tot. Refills 6, Maintenance, use to check SMBG 4times daily for Dx E 11.9, 10/19/23 10:22:00 AM EST, Compound, 160.02, cm, 09/09/23 14:40:00 EST, Height Start Date: 10/19/23 Status: Ordered Quantity: 200.0 Unit: each Repeat number: 7 Freestyle Lite Monitor See Instructions, # 1 each, Maintenance, pt to check blood sugar 4x daily as directed for dx of E11.65, 11/22/18 3:35:38 PM EST, Compound Start Date: 11/22/18 Status: Ordered Quantity: 1.0 Unit: each Repeat number: 1 furosemide 20 mg oral tablet 1 tablet = 20 mg, By Mouth, Daily, 0 Refills, Maintenance, 08/16/10 10:19:21 AM EDT Start Date: 08/16/10 Status: Ordered Repeat number: 1 gabapentin 600 mg oral tablet 1 tablet, By Mouth, 3 times a day, # 90 tablet, 6 Refills, Maintenance, 08/19/22 6:20:00 PM EST, [id number], 160.02, cm, 01/30/22 13:36:00 EDT, Height, 88.1, kg, 02/26/21 7:15:00 EDT, Dry Weight Start Date: 08/19/22 Status: Ordered Quantity: 90.0 Unit: tablet Repeat number: 1 gemfibrozil 600 mg oral tablet 1 tablet = 600 mg, By Mouth, Daily, 0 Refills, Maintenance, 08/16/10 10:18:20 AM EDT Start Date: 08/16/10 Status: Ordered Repeat number: 1 Humalog Kwik Pen 100 units/mL subcutaneous injection See Instructions, 4-12 units Subcutaneous Injection 3 times a day with meals, # 50 mL, 11 Refills, Maintenance, 02/11/24 2:17:00 PM EDT, Solution, [facility]/pharmacy #[id number], Partial fill upon patient request if the prescription is for a schedule II opioid drug., 160.02, cm, 02/11/24 13:41:00 EDT, Height Start Date: 02/11/24 Status: Ordered Quantity: 50.0 Unit: mL Repeat number: 12 Indication: Type 2 diabetes mellitus without complications Lancet Device, BD See Instructions, # 1 each, Refills 0, Tot. Refills 0, Maintenance, Use to prick fingertips up to 4times a day for blood glucose monitoring, E11.9, 04/19/20 11:20:00 AM EDT, Supply, 160.02, cm, 01/10/20 7:33:00 EDT, Height, 83.4, kg, 01/10/20 7:33:00 EDT, Dry Weight Start Date: 04/19/20 Status: Ordered Quantity: 1.0 Unit: each Repeat number: 1 Lantus Solostar Pen 100 units/mL subcutaneous solution See Instructions, INJECT 35 UNITS SUBCUTANEOUS DAILY, # 15 Unknown, 11 Refills, Maintenance, :17:00 PM EDT, [id number], 160.02, cm, 02/11/24 13:41:00 EDT, Height Start Date: 02/11/24 Status: Ordered Quantity: 15.0 Unit: Unknown Repeat number: 12 Levalbuterol 0 Refills, Maintenance, 12/29/19 5:06:00 PM EDT Start Date: 12/29/19 Status: Ordered Repeat number: 1 Lidocaine Topically, 2 times a day, PRN Pain , Moderate, 0 Refills, Maintenance, 12/29/19 5:06:00 PM EDT Start Date: 12/29/19 Status: Ordered Repeat number: 1 Loratadine By Mouth, Maintenance, 09/04/15 1:12:06 PM EST Start Date: 09/04/15 Status: Ordered Repeat number: 1 meclizine 25 mg oral tablet 1 tablet = 25 mg, By Mouth, 3 times a day, PRN for dizziness, # 30 tablet, 0 Refills, Maintenance, 12/29/19 5:07:00 PM EDT, Tablet Start Date: 12/29/19 Status: Ordered Quantity: 30.0 Unit: tablet Repeat number: 1 metFORMIN 1000 mg oral tablet 1 tablet = 1,000 mg, By Mouth, 2 times a day, # 60 tablet, 11 Refills, Maintenance, 02/11/24 2:18:00 PM EDT, Tablet, [id number], 160.02, cm, 02/11/24 13:41:00 EDT, Height Start Date: 02/11/24 Stop Date: 02/05/25 Status: Ordered Quantity: 60.0 Unit: tablet Repeat number: 12 NovoLog Inj = 18 units, Subcutaneous Infusion, 3 times a day before meals, 0 Refills, Maintenance, 02/22/21 12:51:00 PM EDT, Partial fill upon patient request if the prescription is for a schedule II opioid drug. Start Date: 02/22/21 Status: Ordered Repeat number: 1 omeprazole 20 mg oral enteric coated capsule 1 capsule = 20 mg, By Mouth, Daily, 0 Refills, Maintenance, 05/18/12 2:27:13 AM EDT Start Date: 05/18/12 Status: Ordered Repeat number: 1 Pen [place], 31 G x 8 mm BD Ultra Fine III See Instructions, # 150 each, Refills 10, Tot. Refills 10, Maintenance, e11.65, use 5 per day with insulins and victoza, 10/19/23 10:22:00 AM EST, Supply, 160.02, cm, 09/09/23 14:40:00 EST, Height Start Date: 10/19/23 Status: Ordered Quantity: 150.0 Unit: each Repeat number: 11 prazosin 5 mg oral capsule 5 mg, 1, capsule, By Mouth, Daily, Refills 0, Maintenance, 12/29/19 5:09:00 PM EDT Start Date: 12/29/19 Status: Ordered Repeat number: 1 rOPINIRole 2 mg oral tablet 1 tablet = 2 mg, By Mouth, Daily, # 30 tablet, 3 Refills, Maintenance, 09/05/24 11:54:00 AM EST, [facility]/pharmacy #[id number], Partial fill upon patient request if the prescription is for a schedule II opioid drug., 160.02, cm, 09/05/24 11:26:00 EST, Height Start Date: 09/05/24 Status: Ordered Quantity: 30.0 Unit: tablet Repeat number: 4 Transderm-Scop 1 mg/72 hr transdermal film, extended release PLACE 1 PATCH ONTO THE SKIN EVERY 3RD DAY (EVERY 72 HOURS) FOR PREVENTION OF MOTION SICKNESS Start Date: 06/29/24 Status: Ordered Repeat number: 1 Trelegy Ellipta Inhalation, 0 Refills, Maintenance, 12/29/19 5:09:00 PM EDT Start Date: 12/29/19 Status: Ordered Repeat number: 1 Trulicity Pen 0.75 mg/0.5 mL subcutaneous solution 0.5 mL = 0.75 mg, Subcutaneous Injection, Every week, rotate injection sites, # 2.5 mL, 7 Refills, Maintenance, 04/27/24 2:27:00 PM EDT, Solution, [facility]/pharmacy #[id number], Partial fill upon patient requestif the prescription is for a schedule II opioid drug., 160.02, cm, 02/11/24 13:41:00 EDT, Height Start Date: 04/27/24 Stop Date: 12/23/24 Status: Ordered Quantity: 2.5 Unit: mL Repeat number: 8 Victoza 18 mg/3 mL subcutaneous solution See Instructions, INJECT 1.8 MG UNDER THE SKIN ONCE DAILY, # 9 Unknown, 11 Refills, Maintenance, 02/11/24 2:16:00 PM EDT, [facility]/pharmacy #[id number], 160.02, cm, 02/11/24 13:41:00 EDT, Height Start Date: 02/11/24 Status: Ordered Quantity: 9.0 Unit: Unknown Repeat number: 12 Victoza 18 mg/3 mL subcutaneous solution See Instructions, INJECT 1.8 MG UNDER THE SKIN ONCE DAILY, # 9 Unknown, 8 Refills, Maintenance, 02/11/24 2:17:00 PM EDT, [id number], 160.02, cm, 02/11/24 13:41:00 EDT, Height Start Date: 02/11/24 Status: Ordered Quantity: 9.0 Unit: Unknown Repeat number: 1 Zoloft Tablet = 200 mg, By Mouth, Daily, 0 Refills, Maintenance, 05/18/12 2:27:41 AM EDT Start Date: 05/18/12 Status: Ordered Repeat number: 1 Problem List Condition Confirmation Course Effective Dates Status H ealth Status Informant Asthma Confirmed Active Coronary arteriosclerosis 1 Confirmed 06/01/20 Active Gastroesophageal reflux disease 2 Confirmed Active HLD (hyperlipidemia) Confirmed Active Impingement syndrome of left shoulder region Confirmed Active Polysubstance abuse 3 Confirmed Active Severe obesity (BMI 35.0-39.9) with comorbidity Confirmed Active Type 2 diabetes mellitus Confirmed Active 1Outside Source Comment: Overview: Followed by mary hvac r tech. Stress test done 05/29/2020 2Outside Source Comment: Overview: UGI 11/1997 EGD 01/2000-Antral Gastritis. 3Outside Source Comment: Overview: IVDA heroin (quit 1996). ETOH (quit ~'02) Social History Social History Type Response Smoking Status Former smoker; Tobac co user in household: Yes; Other: quit 7 months ago; entered on: 10/16/15 Sex Sex Representation Female (finding) Patient Care team information Care Team Personnel Name: Ej Balderas Position: [facility] Outreach Member Role: PCP Address: [address] [place] [address] Telecom: Name: Kalli Laboy RN Position: S RN Member Role: Primary Care Nurse Name: Andreina Rey RN Position: [facility] RN Member Role: Primary Care Nurse Name: Moira Sanchez RN Position: [facility] RN Member Role: Primary Care Nurse Care Team Related Persons Name: VINNY MACKEY Name: TOYA HURT Insurance Providers Guarantor name: JASMEET ZACK [facility] Information #: 1 Payer: [employer] Member Number: NA Policy Number: NA Group Number: NA
--- OUTSIDE RECORDS SUMMARY | 2024-10-14 12:09 | XMS_ITS | Continuity of Care Document ---
Author Organization [facility] Address [address] [place] [address]- Care Team Providers Care Blue Leather Sorter Name Role Phone Ej Balderas Primary Care Physician Encounter [facility] Date(s): 08/24/24 - 09/23/24 [facility] [address] [place] [id number] Encounter Type: Triage Allergies, Adverse Reactions, Alerts [...] Maintenance, 07/13/24 10:33:00 AM EDT, [id number], 160.02, cm, 06/29/24 15:39:00 EDT, Height Start [...] 6 Refills, Maintenance, 04/04/13 1:45:12 PM EDT, [facility]/pharmacy #[id number] Start Date: 04/04/13 Stop Date: 10/31/13 [...] Maintenance, 05/18/24 5:55:00 PM EDT, ER Tablet, [facility]/pharmacy #[id number], Partial fill upon patient request if the [...] Refills, Maintenance, 08/19/22 6:20:00 PM EST, [id number], 160.02, cm, 01/30/22 13:36:00 EDT, Height, 88.1, [...] Refills, Maintenance, 02/11/24 2:17:00 PM EDT, Solution, [facility]/pharmacy #[id number], Partial fill upon patient request if the [...] 05/18/12 Status: Ordered Repeat number: 1 Pen [place], 31 G x 8 mm BD Ultra [...] 3 Refills, Maintenance, 09/05/24 11:54:00 AM EST, [facility]/pharmacy #[id number], Partial fill upon patient request if the [...] Refills, Maintenance, 04/27/24 2:27:00 PM EDT, Solution, [facility]/pharmacy #[id number], Partial fill upon patient requestif the prescription is for a schedule II opioid drug., 160.02, cm, 02/11/24 13:41:00 EDT, Height Start Date: 04/27/24 Stop Date: 12/23/24 Status: Ordered Quantity: 2.5 Unit: mL Repeat number: 8 Victoza 18 mg/3 mL subcutaneous solution See Instructions, INJECT 1.8 MG UNDER THE SKIN ONCE DAILY, # 9 Unknown, 11 Refills, Maintenance, 02/11/24 2:16:00 PM EDT, [facility]/pharmacy #[id number], 160.02, cm, 02/11/24 13:41:00 EDT, Height Start Date: 02/11/24 Status: Ordered Quantity: 9.0 Unit: Unknown Repeat number: 12 Victoza 18 mg/3 mL subcutaneous solution See Instructions, INJECT 1.8 MG UNDER THE SKIN ONCE DAILY, # 9 Unknown, 8 Refills, Maintenance, 02/11/24 2:17:00 PM EDT, [facility], 160.02, cm, 02/11/24 13:41:00 EDT, Height Start [...] 1Outside Source Comment: Overview: Followed by mary car scrubber. Stress test done 05/29/2020 2Outside Source Comment: [...] Care Team Personnel Name: Ej Balderas Position: [facility] Outreach Member Role: PCP Address: [address] [place] [address] Telecom: Name: Kalli Laboy RN Position: S RN Member Role: Primary Care Nurse Name: Andreina Rey RN Position: [facility] RN Member Role: Primary Care Nurse Name: Moira Sanchez RN Position: [facility] RN Member Role: Primary Care Nurse Care Team Related Persons Name: VINNY MACKEY Name: TOYA HURT Insurance Providers Guarantor name: JASMEET ZACK [facility] Information #: 1 Payer: [employer] Member Number: NA Policy Number: NA Group Number: NA
== END 2024-10-14 11:08 | disposition home or self-care (01) ==
PROVIDERS: PCP Physician Assistant; Visit Provider Hospitalist
DX: J44.9 Chronic obstructive pulmonary disease, unspecified (principal); G47.33 Obstructive sleep apnea (adult) (pediatric); Z99.89 Dependence on other enabling machines and devices; R91.8 Other nonspecific abnormal finding of lung field; J45.909 Unspecified asthma, uncomplicated; T78.40XA Allergy, unspecified, initial encounter; R00.2 Palpitations; R07.82 Intercostal pain
CPT/HCPCS: 99214

== ENCOUNTER 2024-10-14 10:38 | Outpatient (REF) | payer MEDICAID, SELFPAY ==
[2024-10-14 11:25] LABS: MANUAL DIFF FLAG NO
[2024-10-14 11:41] LABS: Basophils Absolute Auto 0.1 X10*3/uL (0.0-0.2); Basophils Percent Auto 0.6 % (0-2); Eosinophils Absolute Auto 0.1 X10*3/uL (0.0-0.4); Eosinophils Percent Auto 0.9 % (0-4); Hematocrit 40.5 % (37.0-47.0); Imm Gran Abs Auto 0.02 X10*3/uL (0.00-0.03); Imm Gran Pct Auto 0.3 % (0.0-0.4); Lymphocytes Absolute Auto 2.5 X10*3/uL (1.2-4.9); Lymphocytes Percent Auto 31.8 % (20-40); Mean Corpuscular HGB Conc 32.1 g/dl (31.0-35.0); Mean Corpuscular Hemoglobin 27.5 pg (27.0-33.0); Mean Corpuscular Volume 85.8 fL (80.0-98.0); Mean Platelet Volume 11.2 fL (9.4-12.3); Monocytes Absolute Auto 0.4 X10*3/uL (0.1-1.2); Monocytes Percent Auto 5.1 % (2-11); Neutrophils Absolute Auto 4.7 x10*3/uL (2.0-8.3); Neutrophils Percent Auto 61.3 % (45-73); Platelet Count 263 X10*3/uL (160-400); Red Blood Count 4.72 X10*6/uL (4.20-5.50); Red Cell Distribution Width 13.3 % (11.0-16.0); White Blood Count 7.7 X10*3/uL (4.8-10.8)
[2024-10-14 12:13] LABS: Anion Gap 11 (12-20); Blood Urea Nitrogen 17 mg/dL (9-16); Calcium 9.3 mg/dL (8.4-10.2); Carbon Dioxide 29 mmol/L (22-29); Chloride 107 mmol/L (96-108); Estimated Glomerular Filt Rate > 60; Glucose Random 137 mg/dL (60-115); Potassium 3.7 mmol/L (3.3-5.1); Sodium 143 mmol/L (135-145)
[2024-10-14 12:17] LABS: Erythrocyte Sedimentation Rate 8 MM/HR (0-20)
[2024-10-14 12:26] LABS: Troponin-I High Sensitivity < 2.7 ng/L (<3.5-17.0)
[2024-10-18 23:08] LABS: Class Alternaria alternata 0; Class Aspergillus fumigatus 0/1; Class Bermuda Grass 0; Class Birch 0; Class Cat Dander 0; Class Cladosporium herbarum 0; Class Cockroach 0; Class Common Ragweed 0; Class Cottonwood 0; Class Derm. pterony 0; Class Dermatophagoides farinae 0; Class Dog Dander 0; Class Elm 0; Class Maple Box Elder 0; Class Mountain Cedar 0; Class Mouse Urine Protein 0; Class Mugwort 0; Class Oak 0; Class Penicillium crysogenum 0; Class Rough Pigweed 0; Class Sheep Sorrel 0; Class Sycamore 0; Class Timothy Grass 0; Class Walnut Tree 0; Class White Ash 0; Class White Mulberry 0; D001 IgE D pteronyssinus <0.10 kU/L; D002 - IgE D farinae <0.10 kU/L; E001 - IgE Cat Dander <0.10 kU/L; E005 - IgE Dog Dander <0.10 kU/L; E072-IgE Mouse Urine <0.10 kU/L; G002 IgE Bermuda Grass <0.10 kU/L; G006 - IgE Timothy Grass <0.10 kU/L; I006-IgE Cockroach, German <0.10 kU/L; Immunoglobulin E 449 kU/L (<OR=114); M001 IgE Penicillium chrysogen <0.10 kU/L; M002 - IgE Cladosporium herbar <0.10 kU/L; M003 - IgE Aspergillus fumigat 0.14 kU/L; M006 - IgE Alternaria alternat <0.10 kU/L; T001 IgE Maple/Box Elder <0.10 kU/L; T003 IgE Common Silver Birch <0.10 kU/L; T006 - IgE Cedar, Mountain <0.10 kU/L; T007 - IgE Oak, White <0.10 kU/L; T008 IgE Elm, American <0.10 kU/L; T010 - IgE Walnut <0.10 kU/L; T011 - IgE Maple Leaf Sycamore <0.10 kU/L; T014 - IgE Cottonwood <0.10 kU/L; T015 - IgE Ash, White <0.10 kU/L; T070 - IgE White Mulberry <0.10 kU/L; W001 - IgE Ragweed, Short <0.10 kU/L; W006 - IgE Mugwort <0.10 kU/L; W014 IgE Pigweed, Common <0.10 kU/L; W018 IgE Sheep Sorrel <0.10 kU/L
== END 2024-10-14 10:39 | disposition home or self-care (01) ==
LOC: HO.LAB 10:38
PROVIDERS: PCP Physician Assistant; Visit Provider Hospitalist
DX: J45.40 Moderate persistent asthma, uncomplicated (principal); R91.1 Solitary pulmonary nodule; R07.82 Intercostal pain; T78.40XA Allergy, unspecified, initial encounter; J44.9 Chronic obstructive pulmonary disease, unspecified; G47.33 Obstructive sleep apnea (adult) (pediatric); Z99.89 Dependence on other enabling machines and devices; R91.8 Other nonspecific abnormal finding of lung field; R00.2 Palpitations
CPT/HCPCS: 36415; 80048; 82785; 84484; 85025; 85652; 86003; 99212

== ENCOUNTER 2024-11-24 10:51 | Outpatient (AMB) | payer MEDICAID, SELFPAY ==
[2024-11-24 10:53] VITALS: BP 150/78; PULSE 77; O2SAT 98; BMI 37.3
--- NOTE | 2024-11-24 10:53 | A.OFFVIS_ITS ---
Vital Signs 11/24/24 10:53 Height 5 ft 2 in Weight 203 lb 14.841 oz BMI 37.3 BP 150/78 H Blood Pressure Location Rt brachial Position Sitting Pulse 77 Pulse Source Pulse Oximeter Pulse Oximetry (%) 98 Oxygen Delivery Method Room Air Intake Visit Reasons: Obstructive sleep apnea Allergies acetaminophen [Percocet] Allergy (Severe, Verified 11/24/24 10:57) Redness and Vomitting amoxicillin Allergy (Severe, Verified 11/24/24 10:57) Redness and Vomitting oxycodone [Percocet] Allergy (Severe, Verified 11/24/24 10:57) Redness and Vomitting HPI Comments Details: The patient is a 63-year-old woman with known history of ANN on CPAP in addition to COPD.. From the cardiac standpoint, no history of any known coronary disea se myocardial infarction or any other cardiac concerns. She is morbidly obese. She has type 2 diabetes and hypertension. Her medication list is not clear. She gets exertional shortness of breath. She also gets chest discomfort at different times. Sometimes at rest and sometimes during exertion. She also feels it a lot during night times. So far, completed an echocardiogram and stress test. 2020 the patient is here for pulmonary follow-up visit. She continues uses CPAP. CPAP therapy continues to be affecting beneficial. She does use it for more than 4 hours a night. We did download her machine her AHI is down to 2.3. It appears that the machine only goes up to 10 cm of water. She appears to need more than that. I will increase it to 12 cm of water maximum pressure. Patient needs to get supplies from [employer]. I will send a prescription over to them. In the meantime her respiratory status has been stable on the current respiratory inhaler. She has not had to use her rescue inhaler. Her biggest complaint is his left-sided chest discomfort. She did have cardiac stress test which was negative for any ischemic heart disease. The patient does have tenderness on palpation over the costochondral joints. 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 Patient is very uncomfortable. Makes it hard for her to breathe in because of the discomfort. She denies any trauma to the chest. She does have reflux disease she does take medication for it. 02/14/2021 the patient is here for pulmonary follow-up visit. Overall she is doing well. She still struggling with the CPAP because she feels like it is not enough pressure. Therefore, I increased her ramp pressure to 6 and her starting pressure to 8. In the meantime we also adjusted her mask. Seems to be feeling better. The CPAP therapy has been affecting beneficial in she will use it more than 4 hours a night. She continues on the Breo and also on the Incruse daily. She does have Xopenex that she uses as needed. But, does not use it more than twice a week. We did briefly review her last CT scan of the chest demonstrating small 4 mm pulmonary nodule. She is scheduled to have a repeat CT scan the fall of 2020. 08/23/2021 the patient is here for a pulmonary follow-up visit. Overall the patient has been still struggling with pain. She describes some chest discomfort. Moderate severity. Associated with palpitations.It is not allowing her to sleep. Primarily on the left shoulder area. It is likely musculoskeletal. It is reassuring that she did have a stress test recently demonstrating no ischemic changes which is very reassuring. Social reassuring that she had a recent CT scan of the chest about a year ago without any evidence of any abnormalities. She is scheduled to undergo repeat CT scan as part of the lung cancer screening program to better address the recent discomfort. In the meantime is reasonable for her to undergo blood work. She is already on gabapentin which she uses 3 times a day. On and have her increase the nighttime dose to help with neuropathic pain at night and also help her with sleep. I am hopeful that she will feel better by making that medication change. 12/20/2021 the patient is here for a pulmonary follow-up visit. Overall the patient has been doing well. she has not been using her CPAP therapy. Although she feels well and she is feeling like she is getting good sleep and waking up rested. the patient does carry some cardiovascular risk factors. Therefore, will consider repeating her sleep study at some point in the future. The patient had a cardiac workup which was negative for any ischemic changes which is reassuring. In addition to that the patient does have underlying pulmonary nodules. She is taking part in the lung cancer screening program. She was supposed to have a CT scan in July 2021. Although, for some reason he did not happen. May have been issues with pandemic. I did restart to the lung cancer screening program to make sure that she gets a call and get her scheduled CT scan completed. Meantime she is going to continue with the current respiratory regimen which she seems to be tolerating. 02/24/2023 the patient is here for pulmonary follow-up visit. The patient is no longer using the CPAP. She could not tolerated. Although she is having hard time sleeping because of nasal congestion and significant allergies. She is taking Zyrtec with minimal response. Therefore will going to go ahead and add singular and also other nasal sprays. Hopefully we can improve her sleep by improving her nasal congestion and allergy symptoms allergy symptoms. The patient has not been using the Breo the Incruse. She has felt well. Although she does need a rescue inhaler which are per provide. The patient is participating in the lung cancer screening program. Her last CT scan was December 2021. She is due for CAT scan now. 03/03/2024 the patient is here for a pulmonary follow-up visit. Overall the patient has been doing fairly bad. She has not been able to use her respiratory medications the last 2 weeks. I believe her primary care doctor had been ordering them and they have been available. I did send all her medications over. She should be on Breo and Incruse. In addition to that she is having some breathlessness right now moderate severity. We did give her a treatment without albuterol and ipratropium. She did feel some relief. She has not having any wheezing so therefore him believe she needs any steroids. She also has diabetes I do not want to cause her hyperglycemia. At this point she is doing better will go ahead and just started all her medications. If the patient does not feel like she is getting any better she will call the office and will give her further recommendations. As far as her CPAP she has not been able to tolerated. I did request that she bring it in to the next visit we can try to adjust the pressures if she likes. 11/24/2024 the patient is here for pulmonary follow-up visit. She is still having hard time with the breathing. She has been on the Breo and Incruse. Still requiring her nebulizer a couple times a day. Feels chest tightness and wheezing. We did look at her allergy testing. She does have a significantly elevated IgE of about 400 and also has allergies to mold. Based on the fact that she is maximizing respiratory therapy and she continues to be have ongoing symptoms requiring rescue therapy on daily basis will go ahead and start her on Xolair. I did teach how to use his EpiPen and she will hopefully start getting her Xolair soon. In the meantime she does use CPAP at nighttime. The CPAP therapy is affecting beneficial. Will follow-up with her progress in the coming months. [facility] Medical History (Updated 10/16/24 @ 22:21 by Grover Wills MD) Allergies Asthma-COPD overlap syndrome Asthma ANN on CPAP Pulmonary nodules Personal history of nicotine dependence Palpitations Family History (System 07/31/22 @ 09:04 by Saniya Alvarez) Other Asthma Social History Patient Tobacco Use Status: Former Tobacco user Review of Systems Const Denies night sweats ENT Denies change in voice, Denies lip swelling, Denies mouth pain, Reports nasal congestion, Reports nasal discharge, Reports neck pain and Denies tongue swelling Card Denies chest pain and Denies palpitations Resp Reports cough GI Denies abdominal pain Musc Denies no additional complaints, Reports back pain, Reports myalgias and Reports neck pain Neuro Denies Neuro-related abnormal movements Psych Denies no additional complaints Endo Denies palpitations Dante/Lymph Denies easy bleeding and Denies lymphadenopathy Aller/Immun Denies lip swelling and Denies tongue swelling Physical Exam Vital Signs: Last Vital Signs Pulse 77 11/24/24 10:53 BP 150/78 H 11/24/24 10:53 Pulse Ox 98 11/24/24 10:53 Oxygen Delivery Method Room Air 11/24/24 10:53 BMI result Body Mass Index 37.3 Const General: alert Neck Neck: Yes normal visual inspection, Yes full ROM and Yes no lymphadenopathy Chest Chest palpation & inspection: normal inspection of the chest Resp Effort & Inspection: prolonged expiratory phase Auscultation: diminished lung sounds Cardio Rate: regular rate Rhythm: regular rhythm Heart sounds: S1 normal heart sound present and S2 normal heart sound present GI Palpation (GI): Soft to palpation and nontender Auscultation: normal bowel sounds Skin General skin exam: rashes and/or lesions noted Assessment & Plan Assessment & Plan (1) Asthma: Code(s): J45.909 - Unspecified asthma, uncomplicated Category: Medical Qualifiers: Asthma severity: moderate Asthma persistence: persistent Asthma complication type: uncomplicated Qualified Code(s): J45.40 - Moderate persistent asthma, uncomplicated (2) Allergies: Code(s): T78.40XA - Allergy, unspecified, initial encounter Category: Medical Qualifiers: Encounter type: initial encounter Qualified Code(s): T78.40XA - Allergy, unspecified, initial encounter (3) Chest pain: Code(s): R07.9 - Chest pain, unspecified Category: Medical Qualifiers: Chest pain type: intercostal pain Qualified Code(s): R07.82 - Intercostal pain (4) ANN on CPAP: Comment: Not using PAP therapy Code(s): G47.33 - Obstructive sleep apnea (adult) (pediatric); Z99.89 - Dependence on other enabling machines and devices Category: Medical (5) Pulmonary nodules: Code(s): R91.8 - Other nonspecific abnormal finding of lung field Category: Medical Plan Continue Breo 200 continue Incruse daily short acting beta agonist, Xopenex as needed continue singulair continue astelin and fluticasone nasal spray stopped PAP therapy, positional therapy CT scan of the chest through LDCT program gabapentin at night for sleep needs anebulizer for xopenex use start Xolair 375mg SC [id number], prefers at hime Epipen rx and provided teaching Follow-up in 4-6 months Medications: New lidocaine 5% (Lidoderm) leave on most painful area for up to 12 hrs 1 patch topical DAILY 30 days 30 ea 4RF epinephrine (EpiPen 2-Roly) for 2 doses 0.3 mg (0.3 mL) IM Q10M 30 days PRN 2 ea 6RF anaphylaxis J45.40 - Moderate persistent asthma, uncomplicated lidocaine 5% (Lidoderm) leave on most painful area for up to 12 hrs 1 patch topical DAILY 30 days 30 ea 4RF G89.12 - Acute post-thoracotomy pain Coding Level of Care Code Est Pt Level 4 (03479) Complex EM visit Add On G2211 Diagnoses Moderate persistent asthma without complication J45.40 Asthma severity: moderate Asthma persistence: persistent Asthma complication type: uncomplicated Allergy, initial encounter T78.40XA Encounter type: initial encounter Intercostal pain R07.82 Chest pain type: intercostal pain ANN on CPAP G47.33; Z99.89 Pulmonary nodules R91.8 Time Spent (min) 17
--- OUTSIDE RECORDS SUMMARY | 2024-11-24 11:32 | XMS_ITS | Encounter Summary ---
Author Organization [facility] Address [address] [place] [address] Care Team Providers Care Book Retailer Name Role Phone Ej Youssef Primary Care Provider [phone] Encounter Details Date Type Department Care Team (Late st Contact Info) Description 05/07/2020 Interim Notes [facility] [address] [place] [phone] [place] [address] Social History Tobacco Use Types Packs/Day Years Used Date Smoking Tobacco: Former Cigarettes 0 03/15/1975 - 03/15/2015 Smokeless Tobacco: Never Comments:2 a day Alcohol Use Standard Drinks/Week Comments No 0 (1 standard drink = 0.6 oz pur e alcohol) Social Connections Answer Date Recorded Social Connections and Isolation 1 01/30/2020 Financial Resource Strain Answer Date R ecorded Financial Resource Strain 1 2019 Stress Answer Date Recorded Stress 1 01/30/2020 Physical Activity Answer Date Recorded Physical Activity 2 01/30/2020 Food Insecurity Answer Date Recorded Food 1 01/30/2020 Transportation Needs Answer Date Record ed Transportation 1 01/30/2020 Housing Stability Answer Date Recorded Housing 1 01/30/2020 Safety and Environment Answer Date Manjit rded Safety 1 01/30/2020 Utilities Answer Date Recorded Utilities 1 01/30/2020 Employment Answer Date Recorded Employment 1 01/30/2020 Comments No Sex and Gender Information Value Date Recorded Sex Assigned at Female 07/29/2017 9:08 AM PDT Legal Sex Female 11:36 AM PDT Gender Identity Female 07/29/2017 9:08 AM PDT Sexual Orientation Straight 07/29/2017 9: 08 AM PDT documented as of this encounter Plan of Treatment Upcoming Encounters Date Type Department Care Team (Late st Contact Info) Description 12/06/2024 3:20 PM EST Office Visit [facility] [address] [place] [phone] Ej Youssef PA [address] [place] [address] documented as of this encounter Goals Goal Patient Goal Type Associated Problems Recent Progress Patient-Stated? Author Diabetes Management: Nutrition # 1 Diet Yes Harley Alcazar, RN Note: Patient will eat healthy diet, low in salt, carb and fat, for the next 6 months. Patient will abstain from sugary drinks and increase water consumption to 64oz a day for the next 6 months. Hypertension Management: Activity # 2 Exercise No Harley Alcazar, ABBIE Note: Patient will walk or exercise at least 20 minutes, 4 times a week, for the next 6 months. Patient will check her BP, at least 3 times a week, for the next 6 months. documented as of this encounter Visit Diagnoses Not on filedocumented in this encounter Additional Health Concerns Assessment Noted Time PHQ-9 Depression Total Score: 15 019 11:05 AM PDT documented as of this encounter Care Teams Book Retailer Relationship Specialty Start Date End Date Ej Youssef PA [address] [place] [address] PCP - General Internal Medicine 09/20/19 documented as of this encounter
--- OUTSIDE RECORDS SUMMARY | 2024-11-24 11:32 | XMS_ITS | Clinical Summary ---
Author Organization [employer] [facility] Address [id number] [place] [id number] Care Team Providers Care Insecticide Sprayer Name Role Phone Perry Youssef Primary Care Provider Medical History Medical History Date Comments Depression DX:Depression Polysubstance abuse ([facility]) DX :Polysubstance abuse ([facility]) GERD (gastroesophageal reflux disease) DX:GERD (gastroesophageal reflux disease) Obesity DX:Obesity Diabetes mellitus ([facility]) DX:D iabetes mellitus ([facility]); COMMENT: type2 Osteoarthritis DX:Osteoarthriti s; COMMENT: both knees Vitamin D deficiency DX:Vitamin D deficiency Tachycardia DX:Tachycardia Hypertension DX:Hypertension COPD (chronic obstructive pu lmonary disease) ([facility]) DX:COPD (chronic obstructive pulmonary disease) ([facility]) Hemorrhoids DX:Hemorrhoids Plantar fasciitis DX:Plantar fas ciitis Bilateral medial epicondylit is of elbow joint DX:Bilateral medial epicondy litis of elbow joint Vertigo DX:Vertigo Coronary artery disease DX:Coron ty artery disease Social History Tobacco Use Types Packs/Day Years Used Date Smoking Tobacco: Former Smokeless Tobacco: Never Alcohol Use Standard Drinks/Week Comments No 0 (1 standard drink = 0.6 oz pur e alcohol) Comments Unknown Sex and Gender Information Value Date Recorded Sex Assigned at Not on file Legal Sex Female 4:55 AM EST Gender Identity Not on file Sexual Orientation Not on file Obstetrics History Plan of Treatment Health Maintenance Due Date Last Done Comments Diabetes: Annual GFR (Glomerular Filtration Rate) 1960 Diabetes: Annual Foot Exam 12/20/1971 Diabetes: Annual Retina Eye Exam 12/20/1971 DTaP,Tdap,and Td Vaccines (1 - Tdap) 1980 Pneumococcal Vaccine: 50+ Years (1 of 2 - PCV) 1980 Pneumococcal Vaccine: Pediatrics (0 to 5 Years) and At-Risk Patients (6 to 64 Years) (1 of 2 - PCV) 1980 Cervical Cancer Screening: Pap Smear 1982 Zoster Vaccines (1 of 2) 12/20/2011 RSV Immunization Patients 60+ Years Old (1 - Risk 60-74 years 1-dose series) 2021 Cholesterol Screening (Lipid Panel) 09/14/2022 Colorectal Cancer Screening: Colonoscopy 09/14/2022 Depression Screening 09/14/2022 HIV Screening 09/14/2022 Hepatitis C Screening 09/14/2022 Social Influencers of Health Screening 09/14/2022 Diabetes: Annual Urine Albumin-Creatinine Ratio (uACR) 09/23/2022 Diabetes: Blood Sugar Control Test (HGBA1C) 09/23/2022 Hypertension/CHF/CAD Annual BMP Blood Test 09/23/2022 COVID-19 Vaccine ( season) 2024 Influenza Vaccine (#1) 2024 Breast Cancer Screening 09/07/2025 09/07/20 23, 09/05/2022, 09/02/2021, Additional history exists HIB Vaccines Aged Out No longer eligi ble based on patient's age to complete this topic HPV Vaccines Aged Out No longer eligi ble based on patient's age to complete this topic Hepatitis A Vaccines Aged Out No long er eligible based on patient's age to complete this topic Hepatitis B Vaccines Aged Out No long er eligible based on patient's age to complete this topic IPV Vaccines Aged Out No longer eligi ble based on patient's age to complete this topic MMR Vaccines Aged Out No longer eligi ble based on patient's age to complete this topic Meningococcal ACWY Vaccine Aged Out N o longer eligible based on patient's age to complete this topic Meningococcal B Vacine Aged Out No lo nger eligible based on patient's age to complete this topic RSV Immunization Patients Under 20 months Aged Out No longer eligible based on patient's age to complete this topic Varicella Vaccines Aged Out No longer eligible based on patient's age to complete this topic Procedures Procedure Name Priority Date/Time Associated Diagnosis Comments ELSA SCREENING DIGITAL Routine 09/07/2023 3:19 PM EST Encounter for screening mammogram for malignant neoplasm of breast from Last 3 Months or Most Recently Relevant to Health Maintenance Results * ELSA SCREENING DIGITAL (09/07/2023 3:19 PM EST) Anatomical Region Laterality Modality Mammography 09/07/2023 2:01 PM EST Narrative 09/07/2023 3:19 PM EST [facility] Diagnostic Imaging Department [address] [place] [id number] Patient: ??ZAINAB WILLS ?/Age/Sex: 1960 62 - F Unit#: ??[id number] ? Location/Status: ??SPDIMAM/REG CLI ? Mnemonic/Ordering Site: ??DIGSC/SPMAM Ordering Physician: ??PERRY YOUSSEF [facility] Screening Digital - 09/07/23 - 4723 Report Status:Signed EXAM: [facility] Screening Digital EXAM DATE AND TIME: 09/07/2023 2:24 PM HISTORY: ??Annual screening COMPARISON: ??Multiple exams dating back to 2002 TECHNIQUE: Bilateral digital breast tomosynthesis was performed in the CC and MLO projections. Computer aided detection with [employer] 3D 3.1 was employed. TISSUE DENSITY: b. There are scattered areas of fibroglandular density. FINDINGS: No suspicious masses, grouped microcalcifications, or areas of architectural distortion are seen. The skin and vascularity are unremarkable. IMPRESSION: Stable mammographic appearance of the breasts. ??No evidence of malignancy is seen. A negative mammogram in the presence of a clinically suspicious palpable abnormality does not preclude the possibility of malignancy or alter the indications for biopsy. BI-RADS: ??Category 1: Negative RECOMMENDATION(S): 1: Routine screening mammogram BILATERAL in 1 year. 3341F, 7025F Dictating Physician: ??STEFANIE BOSE MD Electronically Signed by: ??STEFANIE BOSE MD Dic Date/Time: ??09/07/231517 Sign date/Time: ??09/07/231518 Procedure Note Stefanie Bose MD - 11/17/2023 [facility] Diagnostic Imaging Department [address] [place] [address] Patient: ZAINAB WILLS /Age/Sex: 1960 - 62 - F Unit#: [id number] Location/Status: [facility] CLI Mnemonic/Ordering Site: [facility] Ordering Physician: PERRY YOUSSEF [facility] Screening Digital - 09/07/23 - [id number] Report Status:Signed EXAM: [facility] Screening Digital EXAM DATE AND TIME: 09/07/2023 2:24 PM HISTORY: Annual screening COMPARISON: Multiple exams dating back to 2002 TECHNIQUE: Bilateral digital breast tomosynthesis was performed [facility] the [facility]. Computer aided detection with [employer] 3D 3.1was employed. TISSUE DENSITY: b. There are scattered areas of fibroglandular density. FINDINGS: No suspicious masses, grouped microcalcifications, or areas ofarchitectural distortion are seen. The skin and vascularity are unremarkable. IMPRESSION: Stable mammographic appearance of the breasts. No evidence of malignancyis seen. A negative mammogram in the presence of a clinically suspicious palpable abnormality does not preclude the possibility of malignancy or alter the indications for biopsy. BI-RADS: Category 1: Negative RECOMMENDATION(S): 1: Routine screening mammogram BILATERAL in 1 year. 3341F, 7025F Dictating Physician: STEFANIE BOSE MD Electronically Signed by: STEFANIE BOSE MD Dic Date/Time: 09/07/23 1518 Sign date/Time: 09/07/23 1519 Perry NOLASCO IMG BI PROCEDURES Final Result from Last 3 Months or Most Recently Relevant to Health Maintenance Care Teams Insecticide Sprayer Relationship Specialty Start Date End Date Perry Youssef PA [address] [place] [phone] PCP - General Internal Medicine 07/27/20
--- OUTSIDE RECORDS SUMMARY | 2024-11-24 11:33 | XMS_ITS | Clinical Summary ---
Author Organization [facility] Address [address] [place] [address] Care Team Providers Care Commercial Art Instructor Name Role Phone Ej Youssef Primary Care Provider [phone] Source Comments PLEASE NOTE, if this patient is a minor, it may be UNLAWFUL to discuss sensitive information that is contained in these records (such as FAMILY PLANNING, MENTAL HEALTH or SUBSTANCE ABUSE) with the minor patient's parent or other person without the patient's specific authorization.[facility] Allergies Active Allergy Reactions Criticality Noted Date Comments Amoxicillin 12/17/2022 Oxycodone-Acetaminophen Swelling Medications clonazePAM (KLONOPIN) 0.5 mg tablet Take 0.5 mg by mouth 3 (three) times daily Active fluticasone furoate-vilanter ol (BREO ELLIPTA) 200-25 mcg/dose dsdv Inhale into the lungs Per Glass Driller Dr Grover Wills Active COMFORT EZ PEN NEEDLES 31 gauge x 5/16 ndle USE 5 TIMES DAILY WITH novolog, lantus, victoza pens 3 Active lancing device with lancets kit USE TO TEST FINGER STICK BLOOD SUGAR UP TO 4 (FOUR) TIMES DAILY Active INCRUSE ELLIPTA 62.5 mcg/actuation dsdv INHALE 1 PUFF BY MOUTH INTO THE lungs ONCE A DAY Active levalbuterol tartrate (XOPENEX HFA) 45 mcg/actuation inhalerIndicatio ns:Chronic obstructive pulmonary disease, unspecified COPD type (HCC-CMS) Inhale 1-2 Puffs into the lungs every 4 (four) hours NEEDED FOR SHORTNESS OF BREATH & OR WHEEZING. 2 Inhaler 5 Active blood pressure test kit-mediumIndica tions:Essential hypertension Dispense one blood pressure monitor for patient with HTN, I10. Check blood pressure once daily as instructed. Goal <140/90. 1 Kit 1 Active NOVOLOG FLEXPEN U-100 INSULIN 100 unit/mL (3 mL)Indications:T ype 2 diabetes mellitus with hyperosmolar coma, unspecified whether nursing home insulin use ([facility]) UP TO 18 UNITS SUBCUTANEOUS INFUSION 3 TIMES A DAY BEFORE MEALS 30 DAYS Active walkerIndication s:Osteoarthritis of both knees, unspecified osteoarthritis type,Plantar fasciitis, bilateral,Tendin opathy of hip Dispense one Rolator Walker for patient with severe mobility issues related to bilateral knee osteoarthritis pain. 1 Each Active compr.stocking,k kajal sibley,Mariel dications:PAD (peripheral artery disease) ([facility]),Periph eral edema,Class 2 severe obesity with serious comorbidity and body mass index (BMI) of 38.0 to 38.9 in adult, unspecified obesity type ([facility]) Dispense 7 pair compression stockings. 15 - 20 mmHG compression. 14 Each 1 Active diclofenac sodium (VOLTAREN) 1 % gelIndications:B ilateral chronic knee pain Apply topically 2 (two) times daily 100 g 2 Active escitalopram oxalate (LEXAPRO) 20 mg tablet Take 20 mg by mouth once daily Active FREESTYLE LANCETS 28 gaugeIndications :Type 2 diabetes mellitus without complication, with long-term current use of insulin ([facility]) USE 3 TIMES A DAY 100 Each 11 Active dimenhyDRINATE (DRAMAMINE) 50 mg tabletIndication s:vertigo Take 1 Tablet by mouth every 6 (six) hours as needed for other reason (vertigo) Indications: sensation of spinning or whirling 90 Tablet 2 Active fluticasone propionate (FLONASE) 50 mcg/actuation nasal sprayIndications :Upper respiratory tract infection, unspecified type SPRAY 1 SPRAY INTO EACH NOSTRIL EVERY DAY 16 mL 5 Active trospium (SANCTURA) 20 mg tablet Take 20 mg by mouth 2 (two) times daily 023 Active caneIndications: Osteoarthritis of both knees, unspecified osteoarthritis type,Plantar fasciitis, bilateral,Latera l epicondylitis of left elbow,Class 3 severe obesity due to excess calories with serious comorbidity and body mass index (BMI) of 50.0 to 59.9 in adult ([facility]) 1 cane 1 Each 023 Active fluconazole (DIFLUCAN) 150 mg tablet Take 1 Tablet by mouth every 3 (three) days 2 Tablet 023 Active estradioL (ESTRACE) 0.01 % (0.1 mg/gram) vaginal creamIndications :Dysuria Place 2 g vaginally nightly at bedtime 42.5 g 2 023 Active phenazopyridine (PYRIDIUM) 100 mg tabletIndication s:Urinary frequency,Dysuri a Take 1 Tablet by mouth 3 (three) times daily with meals for 3 days 9 Tablet 023 Active GAS RELIEF EXTRA STRENGTH 125 mg chewable tabletIndication s:Flatulence, eructation and gas pain PLACE 1 TABLET INTO MOUTH, CHEW AND SWALLOW EVERY 6 (SIX) HOURS NEEDED FOR FLATULENCE 60 Tablet 1 023 Active mirtazapine 7.5 mg tab Take 1 Tablet by mouth nightly at bedtime NEEDED FOR SLEEP!! 90 Tablet 1 023 Active lidocaine (LIDODERM) 5 % patchIndications :Neuropathy, lumbosacral plexus PLACE 1 PATCH ONTO THE SKIN EVERY 12 (TWELVE) HOURS 30 Patch 5 023 Active caneIndications: At high risk for falls,Neuropathy , lumbosacral plexus,Lateral epicondylitis of left elbow,Osteoarthr itis of both knees, unspecified osteoarthritis type Dispense one cane for patient with ambulatory issues. 1 Each 023 Active insulin pen needle (COMFORT EZ PEN NEEDLES) 31 gauge x 1/4 ndle See Instructions, # 150 each, Refills 5, Tot. Refills 5, Maintenance, e11.65, use 5 per day with insulins and victoza, 10/28/22 12:39:00 EST, Supply, 160.02, cm, 01/30/22 13:36:00 EDT, Height, 88.1, kg, 02/26/21 7:15:00 EDT, Dry Weight 023 Active insulin lispro (HUMALOG) 100 unit/mL injection pen INJECT 4-12 UNITS INTO THE SKIN 3 TIMES A DAY WITH MEALS 15 mL 1 023 Active azelastine (ASTELIN) 137 mcg (0.1 %) nasal spray USE 2 SPRAYS IN EACH NOSTRIL TWICE A DAY 023 Active blood-glucose meter monitoring kitIndications:T ype 2 diabetes mellitus without complication, with long-term current use of insulin ([facility]) as needed for blood glucose monitoring 1 Each 023 Active lancets (FREESTYLE LANCETS) 28 gaugeIndications :Type 2 diabetes mellitus without complication, with long-term current use of insulin ([facility]) Use one lancet daily for blood sugar checks. 100 Each 3 023 Active LORazepam (ATIVAN) 0.5 mg tabletIndication s:Primary insomnia Take 1 Tablet by mouth nightly at bedtime as needed for anxiety or sleep 21 Tablet 023 Active metFORMIN (GLUCOPHAGE) 1,000 mg tablet TAKE 1 TABLET BY MOUTH TWICE A DAY WITH FOOD 180 Tablet 1 024 Active alcohol swabsIndications :Type 2 diabetes mellitus with hyperosmolar coma, unspecified whether customer training specialist insulin use ([facility]) USE DIRECTED 1 TO 2 TIMES DAILY 100 Each 11 024 Active MYRBETRIQ 50 mg [id number]: Urinary frequency Take 1 Tablet by mouth once daily 90 Tablet 024 Active montelukast (SINGULAIR) 10 mg tablet Take 1 Tablet by mouth once daily 90 Tablet 1 024 Active furosemide (LASIX) 40 mg tablet TAKE 1 TABLET BY MOUTH EVERY DAY 90 Tablet 1 024 Active blood sugar diagnostic (FREESTYLE LITE STRIPS) stripsIndication s:Type 2 diabetes mellitus without complication, with long-term current use of insulin ([facility]) USE 1 TEST STRIP TO CHECK BLOOD SUGARS THREE TIMES A DAY. 100 Each 5 024 Active clotrimazole (LOTRIMIN) 1 % cream Apply topically 15 g 2 024 Active lisinopriL 20 mg tabletIndication s:Essential hypertension TAKE 1 TABLET BY MOUTH EVERY DAY (06/17/23) 90 Tablet 1 024 Active aspirin 81 mg chewable tabletIndication s:Coronary artery disease of [place] heart with stable angina pectoris, unspecified vessel or lesion type ([facility]),H/O sinus tachycardia PLACE 1 TABLET INTO MOUTH, CHEW AND SWALLOW ONCE DAILY 90 Tablet 1 024 Active docusate sodium (COLACE) 100 mg capsuleIndicatio ns:Constipation, unspecified constipation type TAKE 1 CAPSULE BY MOUTH TWICE A DAY 180 Capsule 2 024 Active atorvastatin (LIPITOR) 20 mg tablet Take 1 Tablet by mouth once daily 90 Tablet 1 024 Active meloxicam (MOBIC) 15 mg tablet Take 1 Tablet by mouth once daily 30 Tablet 2 024 Active tolterodine LA (DETROL LA) 4 mg 24 hr capsule Take 1 Capsule by mouth once daily 30 Capsule 2 024 Active cholecalciferol (VITAMIN D-3) 50 mcg (2,000 unit) capsule TAKE 1 CAPSULE BY MOUTH EVERY DAY 90 Capsule 1 024 Active alcohol swabs (ALCOHOL PADS)Indications :Type 2 diabetes mellitus with hyperglycemia, with long-term current use of insulin ([facility]) Apply 1 Each topically 024 Active alcohol swabs (BD ALCOHOL SWABS)Indication s:Type 2 diabetes mellitus with hyperglycemia, with long-term current use of insulin ([facility]) Apply topically 023 Active TRULICITY 0.75 mg/0.5 mL pen injectorIndicati ons:Type 2 diabetes mellitus with hyperglycemia, with long-term current use of insulin ([facility]) 0.5 ML SUBCUTANEOUS INJECTION EVERY WEEK,X30 DAYS,INSTR:ROTAT E INJECTION SITES Active liraglutide (VICTOZA 2-KEMI) 0.6 mg/0.1 mL (18 mg/3 mL)Indications:T ype 2 diabetes mellitus with hyperglycemia, with long-term current use of insulin ([facility]) Inject 0.6 mg into the skin once daily Active rOPINIRole (REQUIP) 0.5 mg tablet Take 1 mg by mouth Active atorvastatin (LIPITOR) 20 mg tabletIndication s:Hypertriglycer idemia Take 1 Tablet by mouth 024 Active gabapentin (NEURONTIN) 600 mg tablet TAKE 1 TABLET BY MOUTH THREE TIMES A DAY 90 Tablet 3 024 Active LANTUS SOLOSTAR U-100 INSULIN 100 unit/mL (3 mL) penIndications:C ontrolled type 2 diabetes mellitus without complication, with long-term current use of insulin ([facility]) INJECT 40 UNITS INTO THE SKIN ONCE DAILY (PER ENDO) 15 mL 2 024 Active acetaminophen (TYLENOL 8 HOUR) 650 mg CR tablet for painTAKE 1 TABLET BY MOUTH EVERY 8 HOURS NEEDED FOR PAIN 60 Tablet 1 024 Active cetirizine (ZYRTEC) 10 mg tabletIndication s:Allergic rhinitis, unspecified seasonality, unspecified trigger Take 1 Tablet by mouth once daily 90 Tablet 1 024 Active omeprazole (PRILOSEC) [address] capsuleIndicatio ns:Gastroesophag eal reflux disease, unspecified whether esophagitis present TAKE 1 CAPSULE BY MOUTH TWICE A DAY 180 Capsule 1 025 Active scopolamine (TRANSDERM-SCOP) 1 mg over 3 days patchIndications :Vertigo PLACE 1 PATCH ONTO THE SKIN EVERY 3RD DAY (EVERY 72 HOURS) FOR PREVENTION OF MOTION SICKNESS 10 Patch 5 025 Active scopolamine (TRANSDERM-SCOP) 1 mg over 3 days patchIndications :Dizziness Place 1 Patch onto the skin every third day (every 72 hours) 24 Patch 1 025 Active dilTIAZem CD (CARDIZEM CD) 240 mg 24 hr capsule TAKE 1 CAPSULE BY MOUTH EVERY DAY 90 Capsule 025 Active dilTIAZem CD (CARDIZEM CD) 240 mg 24 hr capsule TAKE 1 CAPSULE BY MOUTH EVERY DAY 90 Capsule 024 2024 Discontinued scopolamine (TRANSDERM-SCOP) 1 mg over 3 days patchIndications :Vertigo PLACE 1 PATCH ONTO THE SKIN EVERY 3RD DAY (EVERY 72 HOURS) FOR PREVENTION OF MOTION SICKNESS 10 Patch 5 024 2024 Discontinued(R eorder (E-Cancel Not Sent)) Active Problems Patient Care Coordination No te Formatting of this note migh t be different from the original. DME; Walker, blood pressure monitor,cane,walker,CPAP machine, glucose monitor. Problem Noted Date Diagnosed Date Asthma 09/24/2023 Screening for colorectal cancer 07/21/2023 Impingement syndrome of left shoulder region 11/2021 CAD (coronary artery disease) 06/01/2020 Overview (06/01/2020): [facility]. Stress test done 05/29/2020 Vertigo 10/04/2018 Overview (08/06/2019): 09/03/18 - Seen seen at [facility] for nausea vomiting and dizziness; head CT &EKG were WNL; Jeff-Hallpike positive. Diagnosed with vertigo, discharge with Meclizine and Zofran. 11/20/17 - Seen at [facility] c/o dizziness similar to previous vertigo episodes. Tx: IV fluids, Ativan, Meclizine. Improved, d/c home with Ativan 0.5 TID PRN #10, Meclizine 25 mg PO TID #14 11/25/18 - [facility] for vestibular rehab - discharged d/t goals met 02/21/19 - Seen at [facility] c/o dizziness, weakness, nausea x 4 d, rb/l tinnitus. Positive Jeff hallpike on R. Treated with IV fluids, meclizine, zofran and ativan. Dx: BPPV. Discharge with Zofran and Meclizine. 05/20/19 - Seen by ENT: s/s most c/w BPPV. Referred to [facility] for vestibular therapy. F/U PRN. Hemorrhoids 12/28/2014 COPD (chronic obstructive pulmonary disease) ([facility]) 09/29/2014 Vitamin D deficiency 08/17/2012 Depression/Psychosis Overview (07/09/2016): F/u [address] for psych H/O: Polysubstance abuse Overview (07/18/2013): IVDA heroin (quit 1996). ETOH (quit ~'02) GERD (gastroesophageal reflux disease) Overview (07/18/2013): UGI 11/1997 EGD 01/2000-Antral Gastritis. Obesity Hypertriglyceridemia Type 2 diabetes mellitus ([facility]) Overview (11/14/2021): Endo F/u @ [facility] Ophthalm F/u Dr. Frazier 09/22/18 - DM F/U at [facility]: C/w Tuojeo, Victoza, and Metformin 1000 mg BID. Humalog per ss. F/U 3 mos 01/18/19 - Endo F/U: A1c = 6.6% 01/2019. Tuojeo decreased to 20 units. C/w Victoza and Metformin. 05/04/19 - Endo F/U: F/U 6 mos. Bilateral Knee OA Overview (07/18/2013): S/p Left TKR 05/2012 and Right TKR 01/28/[address] Mclean. H/O tachycardia Overview (07/18/2013): Stress test 09/16/10; Cardia cath 11/26/10 (negative) at [facility]. Echo negative; +cocaine screen HTN (hypertension) Resolved Problems Problem Noted Date Diagnosed Date Resolved Date Tendinopathy of left hip - F/U [facility] 06/21/2018 01/07/2023 Overview (05/08/2019): 04/22/18 - [facility] c/o left hip pain x 1 yr. XRAY Hip: pincer lesion L acetabulum, no evidence of CAM lesion or AVN. NO acute fx. Dx: left hip pain likely due to underlying hip tendinopathy, cannot r/o impingement given bony morphology. Plan: Recommend PT, pt would like to try cortisone injection first - will schedule this. 11/02/18- [facility] F/U: XRAY done, no change from previous. Pt declines PT, would like injection, will schedule. 04/11/19 - Seen at [facility] c/o R hip pain. Likely coming from underlying hamstring injury. Recommend course of PT. Pt declines PT. Median nerve neuropathy b/l EMG 02/01/18 - F/U [facility] 02/06/2018 11/10/2019 Overview (03/27/2018): 02/01/18 EMG shows borderline focal median neuropathy of both R and L wrists. This could occur with b/l CTS but the findings are of borderline significance. 03/09/18 - [facility] L carpal tunnel injection Impingement syndrome of righ t shoulder - F/U [facility] 12/31/2016 01/07/2023 Overview (08/24/2019): Injection right 05/07/17 here. Injection right at [facility] 12/18/16 01/06/18 [facility]: c/o R shoulder pain and weakness x 3-6mos. XRAY R shoulder: type II acromion w/ AC joint arthropathy. Impression: R shoulder rotaor cuff tendinitis probable tear. Tx: Injection w/ 40 mg Kenalog. Recommend Mri R shoulder and f/u in 2 weeks to review MRI for probable rotator cuff tear. 01/12/19 - [facility] F/U: Dx: b/l rotator cuff tendinitis vs tear, L>R. Recommend MRI. 01/12/19 - L shoulder MRI w/o contrast: Impression: Supraspinatus and infraspinatus tendinopathy. Lateral epicondylitis of lef t elbow - F/U [facility] 09/12/2016 01/07/2023 Overview (03/27/2018): F/u [facility] s/p injection 10/24/13, 12/19/13, 02/20/14, 12/26/15, 09/08/16, 03/01/18 Plantar fasciitis, bilateral 05/31/2015 01/07/2023 S/P cataract surgery 11/01/2013 015 Overview (02/14/2014): Dr Vargas Bilateral lens implant Tinea corporis/intertrigo (breasts) 03/25/2012 01/07/2023 Tobacco abuse disorder 10/12 Tobacco abuse disorder 09/26 Encounters Date Type Department Care Team Description 09/22/2024 Interim Notes [address] [phone] [place] 09/19/2024 Interim Notes [address] [phone] Ej Youssef PA Breast cancer screening by mammogram (Primary Dx) 09/15/2024 Interim Notes [facility] [address] [place] [phone] Ej Youssef PA Osteoarthritis of both knees, unspecified osteoarthritis type (Primary Dx) 08/31/2024 2:20 PM EST Office Visit [facility] [address] [place] [phone] Ej Youssef PA Type 2 diabetes mellitus with hyperglycemia, with long-term current use of insulin ([facility]) (Primary Dx); Coronary artery disease of [place] heart with stable angina pectoris, unspecified vessel or lesion type ([facility]); Hypertriglyceridemia; Routine adult health maintenance; Immunization due 08/31/2024 Travel 08/24/2024 Interim Notes [facility] [address] [place] [phone] [place] from Last 3 Months Immunizations Name Administration Dates Next Due Flu, Preservative Free 07/02/2020,2017,09/15/2017,07/09 Hep B, Adult/Adol (ENERGIX/RECOMBIVAX) 9,04/24/1998,03/09/1998 INFLUENZA, SEASONAL, INJECTABLE 05/30/2015,07/18,08/17/2012 INFLUENZA, SEASONAL, INJECTA BLE, PRESERVATIVE FREE 05/30/2015,05/30/2015 Influenza (FLUBLOK),recombinant,injectable,prese rvative Free 08/31/2024 Moderna COVID-19 (Spikevax), Mrna, Lnp-s, Pf, 50 Mcg/0.5 Ml, 12yr+ 09/24/2023 Moderna COVID-19 Vaccine, re d cap blue label, 12+ Primary Series 01/23/2022,09/04/2021,01/19/2021,12/22 PFIZER COVID VACCINE, PURPLE CAP, 12+ 07/28/2022 PNEUMOCOCCAL CONJUGATE PCV 13 07/09/2016 PNEUMOCOCCAL POLYSACCHARIDE PPV23 07/18/2013 PPD 01/14/1999 TDAP 08/16/2018,05/04/2010 ZOSTER VACCINE, RECOMBINANT (SHINGRIX) 0 12/05/2020,12/05/2020,08/11/2020,08/11 Family History Medical History Relation Name Comments Diabetes Brother Diabetes Child Diabetes Mother Diabetes Sister Relation Name Status Comments Brother Child Mother Sister Social History Tobacco Use Types Packs/Day Years Used Date Smoking Tobacco: Former Cigarettes 0 03/15/1975 - 03/15/2015 Smokeless Tobacco: Never Tobacco Cessation:Counseling Given: Not Answered Comments:2 a day Alcohol Use Standard Drinks/Week Comments No 0 (1 standard drink = 0.6 oz pur e alcohol) Social Connections Answer Date Recorded Connectedness 1 08/31/2024 Financial Resource Strain Answer Date R ecorded Financial Resource Strain 1 2023 Stress Answer Date Recorded Stress 1 08/31/2024 Physical Activity Answer Date Recorded Physical Activity 0 02/04/2023 Food Insecurity Answer Date Recorded Food 1 08/31/2024 Transportation Needs Answer Date Record ed Transportation 1 08/31/2024 Housing Stability Answer Date Recorded Housing 1 08/31/2024 Safety and Environment Answer Date Manjit rded Safety 1 02/09/2024 Utilities Answer Date Recorded Utilities 1 08/31/2024 Employment Answer Date Recorded Stress 0 02/04/2023 Comments No Sex and Gender Information Value Date Recorded Sex Assigned at Female 07/29/2017 9:08 AM PDT Legal Sex Female 11:36 AM PDT Gender Identity Female 07/29/2017 9:08 AM PDT Sexual Orientation Straight 07/29/2017 9: 08 AM PDT Last Filed Vital Signs Vital Sign Reading Time Taken Comments Blood Pressure 129/77 08/31/2024 2:19 PM EST Pulse 82 08/31/2024 2:19 PM EST Temperature 37 ??C (98.6 ??F) 08/31/2024 2:19 PM EST Respiratory Rate 20 08/31/2024 2:19 PM EST Oxygen Saturation 94% 08/31/2024 2:19 PM EST Inhaled Oxygen Concentration - - Weight 92.5 kg (204 lb) 08/31/2024 2:19 PM EST Height 157.5 cm (5' 2 ) 08/31/2024 2:19 PM EST Body Mass Index 37.31 08/31/2024 2:19 PM EST Plan of Treatment Upcoming Encounters Date Type Department Care Team (Late st Contact Info) Description 12/06/2024 3:20 PM EST Office Visit [facility] [phone] [place] [phone] Ej Youssef PA [address] [place] [address] Health Maintenance Due Date Last Done Comments Dental Examination [address] CT Colonography 2006 FIT/gFOBT 2006 Fecal DNA 2006 Flexible Sigmoidoscopy 2006 Colonoscopy 11/18/2018 11/18/2017 Colorectal Cancer Screening 11/18/2018 Imm-Pneumococcal (3 of 3 - P CV20 or PCV21) 07/09/2021 07/09/2016, 07/18/2013 HPV Screening 09/28/2021 09/28/2016 Diabetes Microalbumin (w/Creatinine) 10/24/2023 10/24/2022, 03/11/2019, 07/09/2016 Annual Preventive Care Visit 03/17/202403/2023, 09/18/2016, 07/09/2016, Additional history exists Cervical Cancer Screening 04/23/2024 Pap + HPV 04/23/2024 04/23/2023, 04/0 01/2022, 09/28/2016, Additional history exists [id number] ( season) 2024 09/24/2023, 07/28/2022, 01/23/2022, Additional history exists Alcohol and Drug Screen 10/12/2024 08/31/20 24, 11/11/2023, 03/17/2023, Additional history exists Depression Monitoring 12/01/2024 08/31/2024 , 08/31/2024, 05/31/2024, Additional history exists Serum Creatinine 01/31/2025 02/01/2024, 02/2022, 07/11/2021, Additional history exists Diabetes HbA1c 02/28/2025 08/31/2024, 04/2 11/2023, 11/13/2022, Additional history exists Tobacco Screening 05/31/2025 05/31/2024, 11/14/2021 Retinopathy Screening 07/22/2025 07/22/2024 , 03/13/2023, 01/10/2022, Additional history exists Diabetes Foot Exam 08/31/2025 08/31/2024, 0 03/17/2023, 11/13/2022, Additional history exists Lipid Screening 08/31/2025 08/31/2024, 10/12, 07/11/2021, Additional history exists Breast Cancer Screening (Mammogram) 09/09/2025 09/09/2024, 09/07/2023, 09/05/2022, Additional history exists Pap Smear 04/23/2026 04/23/2023, 01/2022, 09/28/2016, Additional history exists Imm-DTaP/Tdap/Td (3 - Td or Tdap) 08/16/2028 018, 05/04/2010 Imm-Hepatitis B Completed 10/23/1998, 04/11, 03/09/1998 HIV Screening Completed 01/25/2015 Hepatitis C Screening Completed 01/25/2015 Imm-Zoster, Recombinant Completed 12/05/19, 12/05/2020, 08/11/2020, Additional history exists Imm-Influenza Completed 08/31/2024, 06/13, 08/16/2018, Additional history exists Cervical Ablation/Cold-Knife Conization Discontinued Cervical Cryotherapy Discontinued Colposcopy Discontinued Endometrial Biopsy Discontinued Excision/Leep Discontinued HPV Genotyping Discontinued Vaginal Pap Discontinued Vulvoscopy Discontinued Goals Goal Patient Goal Type Associated Problems Recent Progress Patient-Stated? Author Diabetes Management: Nutrition # 1 Diet Yes Harley Alcazar RN Note: Patient will eat healthy diet, low in salt, carb and fat, for the next 6 months. Patient will abstain from sugary drinks and increase water consumption to 64oz a day for the next 6 months. Hypertension Management: Activity # 2 Exercise No Harley Alcazar, RN Note: Patient will walk or exercise at least 20 minutes, 4 times a week, for the next 6 months. Patient will check her BP, at least 3 times a week, for the next 6 months. Procedures Procedure Name Priority Date/Time Associated Diagnosis Comments REFERRAL SCANNED DOCUMENT 10/14/2024 3:00 AM EST LAB SCANNED DOCUMENT 10/14/2024 3:00 AM EST LAB SCANNED DOCUMENT 10/14/2024 3:00 AM EST LAB SCANNED DOCUMENT 10/14/2024 3:00 AM EST REFERRAL FOR MAMMOGRAM Routine 09/09/2024 3:00 AM EST Screening mammogram for breast cancer LIPID PANEL Routine 08/31/2024 2:50 PM EST HGBA1C W/MPG Routine 08/31/2024 2:50 PM EST Type 2 diabetes mellitus with hyperglycemia, with long-term current use of insulin ([facility]) Coronary artery disease of [place] heart with stable angina pectoris, unspecified vessel or lesion type ([facility]) Hypertriglyceridemia EYE EXAM 07/22/2024 3:00 AM EDT COMPREHENSIVE METABOLIC PANEL Routine 02/01/2024 11:12 AM EDT Type 2 diabetes mellitus with hyperosmolar coma, unspecified whether nursing home insulin use ([facility]) Dizziness THINPREP PAP & HPV MRNA E6/E7 RFLX HPV 16,18/[address]/NG Routine 04/23/2023 1:34 PM EDT Encounter for cervical Pap smear with pelvic exam MICROALBUMIN/CREATINI NE RATIO, URINE, RANDOM Routine 10/24/2022 1:51 PM EST Type 2 diabetes mellitus with hyperosmolar coma, unspecified whether customer training specialist insulin use ([facility]) REFERRAL TO PODIATRY Routine 01/08/2022 3:00 AM EDT Type 2 diabetes mellitus with diabetic peripheral angiopathy without gangrene, unspecified whether nursing home insulin use ([facility]) COLONOSCOPY Routine 11/18/2017 9:08 AM EST PAP SMEAR W/HPV, ABSTRACTED Routine 09/28/2016 2:15 PM EST ANTIBODY HIV-1&HIV-2 SINGLE RESULT Routine 01/25/2015 9:02 AM EDT Routine [facility] hospital HEPATITIS C ANTIBODY Routine 01/25/2015 9:02 AM EDT Routine general medical examination at a health care facility from Last 3 Months or Most Recently Relevant to Health Maintenance Results * REFERRAL SCANNED DOCUMENT (10/14/2024 3:00 AM EST) 10/14/2024 3:00 AM EST us Ej NOLASCO SCAN REFERRAL Final Result * LAB SCANNED DOCUMENT (10/14/2024 3:00 AM EST) Only the most recent of3 resultswithin the time period is included. 10/14/2024 3:00 AM EST us Ej NOLASCO SCAN LAB Final Result * REFERRAL FOR MAMMOGRAM (09/09/2024 3:00 AM EST) 09/09/2024 3:00 AM EST us Ej NOLASCO IMG RFL MAMMO Final Result * (ABNORMAL) HGBA1C W/MPG (08/31/2024 2:50 PM EST) HEMOGLOBIN A1C 6.2(H) <5.7 % of total Hgb [facility] Comment: For someone without known diabetes, a hemoglobin A1c value between 5.7% and 6.4% is consistent with prediabetes and should be confirmed with a follow-up test. For someone with known diabetes, a value <7% indicates that their diabetes is well controlled. A1c targets should be individualized based on duration of diabetes, age, comorbid conditions, and other considerations. This assay result is consistent with an increased risk of diabetes. Currently, no consensus exists regarding use of hemoglobin A1c for diagnosis of diabetes for children. MEAN PLASMA GLUCOSE 143 mg/dL (calc) [facility] Blood Blood / Unknown 08/31/2024 2 :50 PM EST 08/31/2024 2:50 PM EST us Ej NOLASCO LAB - BLOOD DRAW Edited Result - Final Performing Organization Address City/[facility]/ZIP Co de Phone Number [facility] [address] [address], [facility] [address] [address] * LIPID PANEL (08/31/2024 2:50 PM EST) CHOLESTEROL, TOTAL 152 <200 mg/dL [facility] HDL CHOLESTEROL 64 > OR = 50 mg/dL [facility] TRIGLYCERIDES 131 <150 mg/dL [facility] LDL-CHOLESTEROL 67 99 mg/dL (calc) [facility] Comment: Reference range: <100 Desirable range <100 mg/dL for primary prevention; ?? <70 mg/dL for patients with CHD or diabetic patients with > or = 2 CHD risk factors. LDL-C is now calculated using the Dav calculation, which is a validated novel method providing better accuracy than the Friedewald equation in the estimation of LDL-C. Waldo DILL et al. ROSANA. 2013;310(19): 7915-3714 (http://education.Football Meister/faq/OJB559) CHOL/HDLC RATIO 2.4 <5.0 (calc) [facility] NON-HDL CHOLESTEROL 88 <130 mg/dL (calc) [facility] Comment: For patients with diabetes plus 1 major ASCVD risk factor, treating to a non-HDL-C goal of <100 mg/dL (LDL-C of <70 mg/dL) is considered a therapeutic option. 08/31/2024 2:50 PM EST 08/31/2024 2:50 PM EST us Ej NOLASCO LAB - BLOOD DRAW Final Result Performing Organization Address City/[facility]/ZIP Co de Phone Number [facility] [address] [address], [facility] [address] [address] * EYE EXAM (07/22/2024 3:00 AM EDT) 07/22/2024 3:00 AM EDT Ej NOLASCO OTHER Edited Result - Final * COMPREHENSIVE METABOLIC PANEL (02/01/2024 11:12 AM EDT) GLUCOSE 88 65 - 139 mg/dL [facility] Comment: ?Non-fasting reference interval UREA NITROGEN (BUN) 16 7 - 25 mg/dL [facility] CREATININE (blood) 0.68 0.50 - 1.05 mg/dL [facility] [place] [facility] EGFR 98 > OR = 60 mL/min/1. 73m2 [facility] [place] [facility] BUN/CREATININE RATIO SEE NOTE: [facility] Comment: ?? Not Reported: BUN and Creatinine are within ?? reference range. ? SODIUM 144 135 - 146 mmol/L [facility] POTASSIUM 4.1 3.5 - 5.3 mmol/L [facility] CHLORIDE 103 98 - 110 mmol/L [facility] CARBON DIOXIDE 29 20 - 32 mmol/L [facility] CALCIUM 9.8 8.6 - 10.4 mg/dL [facility] PROTEIN, TOTAL 6.7 6.1 - 8.1 g/dL [facility] ALBUMIN 4.3 3.6 - 5.1 g/dL [facility] [place] [facility] GLOBULIN 2.4 1.9 - 3.7 g/dL (calc) [facility] ALBUMIN/GLOBULI N RATIO 1.8 1.0 - 2.5 (calc) [facility] BILIRUBIN, TOTAL 0.3 0.2 - 1.2 mg/dL [facility] ALKALINE PHOSPHATASE 105 37 - 153 U/L [facility] AST 12 10 - 35 U/L [facility] ALT 9 6 - 29 U/L [facility] Blood Blood / Unknown 02/01/2024 1 1:12 AM EDT 02/01/2024 11:13 AM EDT Narrative [facility] - 02/02/2024 10:44 AM EDT FASTING:NO us Srikanth Simmons PA-C LAB - BLOOD DRAW Edited Resul t - Final [facility] [address] [address], [facility] [address] [address] * THINPREP PAP & HPV MRNA E6/E7 RFLX HPV 16,18/[address]/NG (04/23/2023 1:34 PM EDT) CHLAMYDIA TRACHOMATIS RNA, TMA NOT DETECTED NOT DETECTED [facility] NEISSERIA GONORRHOEAE RNA, TMA NOT DETECTED NOT DETECTED [facility] COMMENT [facility] CLINICAL INFORMATION See Note [facility] [place] [facility] Comment:Routine exam LMP See Note [facility] Comment:[id number] PREV. PAP See Note [facility] Comment:NONE GIVEN PREV. BX See Note [facility] Comment:NONE GIVEN SOURCE See Note [facility] Comment:Cervix STATEMENT OF ADEQUACY See Note [facility] Comment:SATISFACTORY FOR JEN LUATION INTERPRETATION/RESU LT See Note [facility] Comment: Cytology Results: Negative for intraepithelial lesion or malignancy. 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 [facility] Comment: BK,CT(ASCP) CT screening location: [address] COMMENT [facility] HPV MRNA E6/E7 Not Detected Not Detected [facility] Comment: Methodology: Vending Machine Mechanic-Mediated Amplification This assay detects E6/E7 viral messenger RNA (mRNA) from 14 high-risk HPV types (16,18,31,33,35,39,45,51,52,56,58,59,66,68). Cervical sources are required for HPV testing. If a vaginal source from a patient who has had a total hysterectomy with removal of cervix was submitted, please contact the testing laboratory for alternative testing options. For additional information, please refer to http://education.Edvivo/faq/IFZ058b8 (This link if provided for information/ educational purposes only.) Swab Cervix uteri structure / Unknown 04/23/2023 1:34 PM EDT 04/24/2023 1:43 AM EDT Narrative [facility] - 04/25/2023 5:41 AM EDT EXPLANATORY NOTE: The Pap is a screening test for cervical cancer. It is not a diagnostic test and is subject to false negative and false positive results. It is most reliable when a satisfactory sample, regularly obtained, is submitted with relevant clinical findings and history, and when the Pap result is evaluated along with historic and current clinical information. The analytical performance characteristics of this assay, when used to test SurePath(TM) specimens have been determined by [employer]. The modifications have not been cleared or approved by the FDA. This assay has been validated pursuant to the CLIA regulations and is used for clinical purposes. For additional information, please refer to https://education.Edvivo/faq/LPK503 (This link is being provided for information/ educational purposes only.) Ej NOLASCO LAB - NO BLOOD DRAW Final Resu lt Performing Organization Address [facility] Co de Phone Number [facility] [address] [address], [facility] [address] [address] * MICROALBUMIN/CREATININE RATIO, URINE, RANDOM (10/24/2022 1:51 PM EST) CREATININE, RANDOM URINE 42 20 - 275 mg/dL [facility] MICROALBUMIN 0.3 mg/dL [facility] Comment: Reference Range Not established MICROALBUMIN/CREA TININE RATIO, RANDOM URINE 7 <30 mcg/mg creat [facility] Comment: The ADA defines abnormalities in albumin excretion as follows: Albuminuria Category ?Result (mcg/mg creatinine) Normal to Mildly increased ?? <30 Moderately increased ? 30-299 Severely increased ? > OR = 300 The ADA recommends that at least two of three specimens collected within a 3-6 month period be abnormal before considering a patient to be within a diagnostic category. Urine Urine specimen / Unknown 10/24/2022 1:51 PM EST 10/26/2022 3:03 AM EST Levon MENSAH LAB - NO BLOOD DRAW Final Result [facility] [address] [facility] [address] [place] [address], [facility] [address] [facility] (NL[facility]) [place] [address] * REFERRAL TO PODIATRY (01/08/2022 3:00 AM EDT) 01/08/2022 3:00 AM EDT Ej NOLASCO REFERRAL Edited Result - Final * COLONOSCOPY (11/18/2017 9:08 AM EST) Impressions Yamila ShayleeRAZ - 11/18/2017 9:08 AM EST Colonoscopy Impression: Normal colon Repeat 1 year Provider [facility] PROCEDURES Final Result * PAP SMEAR W/HPV, HISTORICAL (09/28/2016 2:15 PM EST) PAP SMEAR INTERPRETATION NORMAL NORMAL [facility] HPV (HUMAN PAPILLOMA) NEGATIVE NEGATIVE [facility] Specimen from uterine cervix (specimen) Impressions [facility] - 09/28/2016 2:15 PM EST ThinPrep Pap Negative for squamous intraepithelial lesion and malignancy HPV Negative Provider [facility] LAB - NO BLOOD DRAW Final Result [facility] [address] [place] [address], * HEPATITIS C ANTIBODY (01/25/2015 9:02 AM EDT) HEPATITIS C VIRUS SCREEN NEGATIVE NEGATIVE [facility] Blood specimen (specimen) Blood / Unknown 01/25/2015 9:02 AM EDT 01/25/2015 9:15 AM EDT [facility]ative [facility] - 01/25/2015 1:40 PM EDT [facility] [address] [place] [address] PT ID [id number] ORD# [id number] Debby NOLASCO LAB - BLOOD DRAW Final Res ult [facility] [address] [place] [address], [place] [phone] * HIV-1 & HIV-2 ANTIBODIES (01/25/2015 9:02 AM EDT) HIV 1 AND 2 ANTIBODY SCREEN NEGATIVE NEGATIVE [facility] Blood specimen (specimen) Blood / Unknown 01/25/2015 9:02 AM EDT 01/25/2015 9:15 AM EDT Narrative [facility] - 01/25/2015 1:[address] [place] [address] [place] [id number] ORD# [id number] Debby NOLASCO LAB - BLOOD DRAW Final Res ult Performing Organization Address City/[facility]/ZIP Co de Phone Number [facility] [address] [place] [address], [place] [phone] from Last 3 Months or Most Recently Relevant to Health Maintenance Insurance [facility] [employer] 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
== END 2024-11-24 11:26 | disposition home or self-care (01) ==
PROVIDERS: PCP Physician Assistant; Visit Provider Hospitalist
DX: J45.40 Moderate persistent asthma, uncomplicated (principal); T78.40XA Allergy, unspecified, initial encounter; R07.82 Intercostal pain; G47.33 Obstructive sleep apnea (adult) (pediatric); Z99.89 Dependence on other enabling machines and devices; R91.8 Other nonspecific abnormal finding of lung field
CPT/HCPCS: 99214

== ENCOUNTER → 2024-11-24 10:51 | Outpatient (BNVA) | payer MEDICAID, SELFPAY | PROVIDERS: PCP Physician Assistant; Visit Provider Hospitalist | DX: J45.40 Moderate persistent asthma, uncomplicated (principal); T78.40XA Allergy, unspecified, initial encounter; R07.82 Intercostal pain; G47.33 Obstructive sleep apnea (adult) (pediatric); R91.8 Other nonspecific abnormal finding of lung field; Z99.89 Dependence on other enabling machines and devices | CPT/HCPCS: 99212 ==

== ENCOUNTER 2025-01-31 13:00 | Outpatient (RCR) | payer MEDICAID, SELFPAY ==
[2024-12-23 12:27] VITALS: BP 134/68; PULSE 89; RESP 16; TEMP 36.5; O2SAT 96
[2024-12-23] MEDS: Omalizumab 300 MG, Omalizumab 75 MG 375 MG SUBCUT (12:34)
[2025-01-11 12:22] VITALS: BP 149/73; PULSE 84; RESP 16; TEMP 36.6; O2SAT 98
[2025-01-11] MEDS: Omalizumab 300 MG, Omalizumab 75 MG 375 MG SUBCUT (12:25)
[2025-01-31 12:50] VITALS: BP 116/58; PULSE 91; RESP 18; TEMP 36.6; O2SAT 97
[2025-01-31] MEDS: Omalizumab 300 MG, Omalizumab 75 MG 375 MG SUBCUT (12:54)
== END 2025-01-31 15:01 | disposition home or self-care (01) ==
LOC: HO.INF 13:00
PROVIDERS: Visit Provider Hospitalist
DX: J45.40 Moderate persistent asthma, uncomplicated (principal)
CPT/HCPCS: 96372; J2357

== ENCOUNTER 2025-03-28 10:18 | Outpatient (AMB) | payer MEDICAID, SELFPAY ==
[2025-03-28 10:20] VITALS: BP 136/74; PULSE 82; O2SAT 98; BMI 36.7
--- NOTE | 2025-03-28 10:20 | A.OFFVIS_ITS ---
Vital Signs 03/28/25 10:20 Height 5 ft 2 in Weight 200 lb 9.93 oz BMI 36.7 BP 136/74 Blood Pressure Location Lt brachial Position Sitting Pulse 82 Pulse Source Pulse Oximeter Pulse Oximetry (%) 98 Oxygen Delivery Method Room Air Intake Visit Reasons: Obstructive sleep apnea Accompanied by: Self / Same As Patient Allergies acetaminophen [Percocet] Allergy (Severe, Verified 03/28/25 10:23) Redness and Vomitting oxycodone [Percocet] Allergy (Severe, Verified 03/28/25 10:23) Redness and Vomitting HPI Comments Details: The patient is a 64-year-old woman with known history of ANN on CPAP in addition to COPD.. From the cardiac standpoint, no history of any known coronary disease myocardial infarction or any other cardiac concerns. She is morbidly obese. She has type 2 diabetes and hypertension. Her medication list is not clear. She gets exertional shortness of breath. She also gets chest discomfort at different times. Sometimes at rest and sometimes during exertion. She also feels it a lot during night times. So far, completed an echocardiogram and stress test. 2020 the patient is here for pulmonary follow-up visit. She continues uses CPAP. CPAP therapy continues to be affecting beneficial. She does use it for more than 4 hours a night. We did download her machine her AHI is down to 2.3. It appears that the machine only goes up to 10 cm of water. She appears to need more than that. I will increase it to 12 cm of water maximum pressure. Patient needs to get supplies from [employer]. I will send a prescription over to them. In the meantime her respiratory status has been stable on the current respiratory inhaler. She has not had to use her rescue inhaler. Her biggest complaint is his left-sided chest discomfort. She did have cardiac stress test which was negative for any ischemic heart disease. The patient does have tenderness on palpation over the costochondral joints. 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 Patient is very uncomfortable. Makes it hard for her to breathe in because of the discomfort. She denies any trauma to the chest. She does have reflux disease she does take medication for it. 02/14/2021 the patient is here for pulmonary follow-up visit. Overall she is doing well. She still struggling with the CPAP because she feels like it is not enough pressure. Therefore, I increased her ramp pressure to 6 and her starting pressure to 8. In the meantime we also adjusted her mask. Seems to be feeling better. The CPAP therapy has been affecting beneficial in she will use it more than 4 hours a night. She continues on the Breo and also on the Incruse daily. She does have Xopenex that she uses as needed. But, does not use it more than twice a week. We did briefly review her last CT scan of the chest demonstrating small 4 mm pulmonary nodule. She is scheduled to have a repeat CT scan the fall of 2020. 08/23/2021 the patient is here for a pulmonary follow-up visit. Overall the patient has been still struggling with pain. She describes some chest discomfort. Moderate severity. Associated with palpitations.It is not allowing her to sleep. Primarily on the left shoulder area. It is likely musculoskeletal. It is reassuring that she did have a stress test recently demonstrating no ischemic changes which is very reassuring. Social reassuring that she had a recent CT scan of the chest about a year ago without any evidence of any abnormalities. She is scheduled to undergo repeat CT scan as part of the lung cancer screening program to better address the recent discomfort. In the meantime is reasonable for her to undergo blood work. She is already on gabapentin which she uses 3 times a day. On and have her increase the nighttime dose to help with neuropathic pain at night and also help her with sleep. I am hopeful that she will feel better by making that medication change. 12/20/2021 the patient is here for a pulmonary follow-up visit. Overall the patient has been doing well. she has not been using her CPAP therapy. Although she feels well and she is feeling like she is getting good sleep and waking up rested. the patient does carry some cardiovascular risk factors. Therefore, will consider repeating her sleep study at some point in the future. The patient had a cardiac workup which was negative for any ischemic changes which is reassuring. In addition to that the patient does have underlying pulmonary nodules. She is taking part in the lung cancer screening program. She was supposed to have a CT scan in July 2021. Although, for some reason he did not happen. May have been issues with pandemic. I did restart to the lung can cer screening program to make sure that she gets a call and get her scheduled CT scan completed. Meantime she is going to continue with the current respiratory regimen which she seems to be tolerating. 02/24/2023 the patient is here for pulmonary follow-up visit. The patient is no longer using the CPAP. She could not tolerated. Although she is having hard time sleeping because of nasal congestion and significant allergies. She is taking Zyrtec with minimal response. Therefore will going to go ahead and add singular and also other nasal sprays. Hopefully we can improve her sleep by improving her nasal congestion and allergy symptoms allergy symptoms. The patient has not been using the Breo the Incruse. She has felt well. Although she does need a rescue inhaler which are per provide. The patient is participating in the lung cancer screening program. Her last CT scan was December 2021. She is due for CAT scan now. 03/03/2024 the patient is here for a pulmonary follow-up visit. Overall the patient has been doing fairly bad. She has not been able to use her respiratory medications the last 2 weeks. I believe her primary care doctor had been ordering them and they have been available. I did send all her medications over. She should be on Breo and Incruse. In addition to that she is having some breathlessness right now moderate severity. We did give her a treatment wi thout albuterol and ipratropium. She did feel some relief. She has not having any wheezing so therefore him believe she needs any steroids. She also has diabetes I do not want to cause her hyperglycemia. At this point she is doing better will go ahead and just started all her medications. If the patient does not feel like she is getting any better she will call the office and will give her further recommendations. As far as her CPAP she has not been able to tolerated. I did request that she bring it in to the next visit we can try to adjust the pressures if she likes. 11/24/2024 the patient is here for pulmonary follow-up visit. She is still having hard time with the breathing. She has been on the Breo and Incruse. Still requiring her nebulizer a couple times a day. Feels chest tightness and wheezing. We did look at her allergy testing. She does have a significantly elevated IgE of about 400 and also has allergies to mold. Based on the fact that she is maximizing respiratory therapy and she continues to be have ongoing symptoms requiring rescue therapy on daily basis will go ahead and start her on Xolair. I did teach how to use his EpiPen and she will hopefully start getting her Xolair soon. In the meantime she does use CPAP at nighttime. The CPAP therapy is affecting beneficial. Will follow-up with her progress in the coming months. 03/28/2025 the patient is here for a pulmonary follow-up visit. She has multiple complaints. She complains of significant headaches and pressure sinuses. She did recently started nasal spray without any significant relief. In addition to that she complains of dyspnea on exertion and chest tightness and wheezing. She has been using all her respiratory medicine as prescribed although she has not been continuing to take the Xolair since now she is supposed to be doing it at home. I will reach out to our nurse to see if she can help her facilitate getting her injections so she can do them at home and then therefore improve her overall allergic reactions and asthma and rhinosinusitis. In the meantime will start her on doxycycline to treat her for sinusitis. Will hold off on any prednisone because of her diabetes. Consider Daliresp as a good option in the future if she needs to be on steroids for chronic bronchitis. Will go ahead and check an overnight oximetry to assess her oxygen levels at nighttime while sleeping specially with the underlying asthma COPD overlap syndrome. The patient will return in 4-6 months if she has any issues prior to this she will call for an earlier assessment. [facility] Medical History (Updated 03/28/25 @ 20:37 by Grover Wills MD) Chronic headaches Allergies Asthma-COPD overlap syndrome Asthma ANN on CPAP Pulmonary nodules Personal history of nicotine dependence Palpitations Family History (System 07/31/22 @ 09:04 by Saniya Alvarez) Other Asthma Social History Patient Tobacco Use Status: Former Tobacco user Review of Systems Const Reports headache(s) and Denies night sweats ENT Denies change in voice, Reports headache(s), Denies lip swelling, Denies mouth pain, Reports nasal congestion, Reports nasal discharge, Reports neck pain, Reports sinus pain and Denies tongue swelling Card Denies chest pain and Denies palpitations Resp Reports cough GI Denies abdominal pain Musc Denies no additional complaints, Reports back pain, Reports myalgias and Reports neck pain Neuro Denies Neuro-related abnormal movements and Reports headache(s) Psych Denies no additional complaints Endo Denies palpitations Dante/Lymph Denies easy bleeding and Denies lymphadenopathy Aller/Immun Denies lip swelling and Denies tongue swelling Physical Exam Vital Signs: Last Vital Signs Pulse 82 03/28/25 10:20 BP 136/74 03/28/25 10:20 Pulse Ox 98 03/28/25 10:20 Oxygen Delivery Method Room Air 03/28/25 10:20 BMI result Body Mass Index 36.7 Const General: alert Neck Neck: Yes normal visual inspection, Yes full ROM and Yes no lymphadenopathy Chest Chest palpation & inspection: normal inspection of the chest Resp Effort & Inspection: prolonged expiratory phase Auscultation: diminished lung sounds Cardio Rate: regular rate Rhythm: regular rhythm Heart sounds: S1 normal heart sound present and S2 normal heart sound present GI Palpation (GI): Soft to palpation and nontender Auscultation: normal bowel sounds Skin General skin exam: rashes and/or lesions noted Assessment & Plan Assessment & Plan (1) Allergies: Code(s): T78.40XA - Allergy, unspecified, initial encounter Category: Medical Qualifiers: Encounter type: initial encounter Qualified Code(s): T78.40XA - Allergy, unspecified, initial encounter (2) Chest pain: Code(s): R07.9 - Chest pain, unspecified Category: Medical Qualifiers: Chest pain type: intercostal pain Qualified Code(s): R07.82 - Intercostal pain (3) Asthma-COPD overlap syndrome: Code(s): J44.9 - Chronic obstructive pulmonary disease, unspecified Category: Medical (4) Chronic headaches: Code(s): R51.9 - Headache, unspecified; G89.29 - Other chronic pain Category: Medical Qualifiers: Intractability: not intractable (5) Asthma: Code(s): J45.909 - Unspecified asthma, uncomplicated Category: Medical (6) Pulmonary nodules: Code(s): R91.8 - Other nonspecific abnormal finding of lung field Category: Medical Plan Continue Breo 200 continue Incruse daily short acting beta agonist, Xopenex as needed continue singulair continue astelin and fluticasone nasal spray start Doxycycline CT scan of the chest through LDCT program gabapentin at night for sleep needs to restart Xolair 375mg SC [id number] at home Epipen rx and provided teaching overnight oximetry sinus xrays Follow-up in 4-6 months Orders: Orders Overnight Pulse Oximetry Today J44.9 - Chronic obstructive pulmonary disease, unspecified XR sinus <3V Today G89.29 - Other chronic pain, R51.9 - Headache, unspecified Medications: New doxycycline monohydrate 100 mg PO BID 28 tabs 0RF 14 days Coding Level of Care Code Est Pt Level 4 (81097) Complex EM visit Add On G2211 Diagnoses Allergy, initial encounter T78.40XA Encounter type: initial encounter Intercostal pain R07.82 Chest pain type: intercostal pain Asthma-COPD overlap syndrome J44.9 Chronic headaches R51.9; G89.29 Intractability: not intractable Asthma J45.909 Pulmonary nodules R91.8 Time Spent (min) 17
--- OUTSIDE RECORDS SUMMARY | 2025-03-28 11:49 | XMS_ITS | Encounter Summary ---
Author Organization [facility] Address [address] [place] [address] Care Team Providers Care Blood Donor Recruiter Name Role Phone Ej Youssef Primary Care Provider [phone] Encounter Details Date Type Department Care Team (Late st Contact Info) Description 05/07/2020 Interim Notes [facility] Main [address] [place] [id number] [place] [address] Social History Tobacco Use Types Packs/Day Years [...] Care Team (Late st Contact Info) Description 03/29/2025 9:00 AM EDT Interim Notes [facility] [address] [place] [address] 03/29/2025 9:20 AM EDT Office Visit [facility] [address] [place] [address] Ej Youssef PA [address] [place] [address] 03/29/2025 9:40 AM EDT Interim Notes [facility] [address] [place] [phone] documented as of this encounter Goals Goal [...] documented as of this encounter Care Teams Blood Donor Recruiter Relationship Specialty Start Date End Date Ej Youssef PA [address] [place] [address] PCP - General Internal Medicine 09/20/19 documented as of this encounter
== END 2025-03-28 10:41 | disposition home or self-care (01) ==
LOC: HO.HPS 10:19
PROVIDERS: PCP Physician Assistant; Visit Provider Hospitalist
DX: T78.40XA Allergy, unspecified, initial encounter (principal); R07.82 Intercostal pain; J44.9 Chronic obstructive pulmonary disease, unspecified; R51.9 Headache, unspecified; G89.29 Other chronic pain; J45.909 Unspecified asthma, uncomplicated; R91.8 Other nonspecific abnormal finding of lung field
CPT/HCPCS: 99214

== ENCOUNTER → 2025-03-28 10:18 | Outpatient (BNVA) | payer MEDICAID, SELFPAY | PROVIDERS: PCP Physician Assistant; Visit Provider Hospitalist | DX: G89.12 Acute post-thoracotomy pain (principal); R07.82 Intercostal pain; J44.9 Chronic obstructive pulmonary disease, unspecified; J45.909 Unspecified asthma, uncomplicated; T78.40XA Allergy, unspecified, initial encounter; J45.40 Moderate persistent asthma, uncomplicated | CPT/HCPCS: 99212 ==

== ENCOUNTER 2025-06-16 10:40 | Outpatient (AMB) | payer MEDICAID, SELFPAY ==
--- OUTSIDE RECORDS SUMMARY | 2025-06-10 23:59 | XMS_ITS | Continuity of Care Document ---
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 Role Phone Ej Balderas Primary Care Physician Encounter [facility] Date(s): 05/11/25 - 06/10/25 [facility] [address] [facility] 3rd Floor, [address] [place] [id number] Encounter Type: Triage Allergies, Adverse Reactions, Alerts Substance Criticality Severity Reaction Reaction Severity Status amoxicillin face turns red and burning sensation Active Percocet face turns re d and burning sensation Active penicillin itching, redness Ac tive Immunizations Given and Recorded Vaccine Date Status Refusal Reason tetanus/diphtheria/pertussis, acel(Tdap) 05/04/10 Given Medications Alcohol Pads See Instructions, # 200 each, Refills 11, Tot. Refills 11, Maintenance, use for insulin injections and for BG testing, up to 8 times daiily for Dx E11.9, 02/23/25 1:49:00 PM EDT, Compound, 160.02, cm,02/23/25 13:17:00 EDT, Height Start Date: 02/23/25 Status: Ordered Medication Dispense Status: Completed Quantity: 200.0 Unit: each Total Allowed Fills: 12 Fills Dispensed: 0 ascorbic acid 500 mg oral tablet 1 tablet = 500 mg, By Mouth, Daily, # 30 tablet, 0 Refills, Maintenance, 01/31/13 11:29:10 AM EDT, Tablet Start Date: 01/31/13 Status: Ordered Medication Dispense Status: Completed Quantity: 30.0 Unit: tablet Total Allowed Fills: 1 Fills Dispensed: 0 atorvastatin 20 mg oral tablet 1 tablet, By Mouth, Daily, # 90 tablet, 1 Refills, Maintenance, 07/13/24 10:33:00 AM EDT, [facility] [id number], 160.02, cm, 06/29/24 15:39:00 EDT, Height Start Date: 07/13/24 Status: Ordered Medication Dispense Status: Completed Quantity: 90.0 Unit: tablet Total Allowed Fills: 1 Fills Dispensed: 0 Breo Ellipta 200 mcg-25 mcg/inh inhalation powder 1 puffs, Inhalation, Daily, 0 Refills, Maintenance, 12/29/19 5:00:00 PM EDT, Powder Start Date: 12/29/19 Status: Ordered Medication Dispense Status: Completed Total Allowed Fills: 1 Fills Dispensed: 0 budesonide-formoterol 160 mcg-4.5 mcg/inh inhalation aerosol with adapter 2, puffs, Inhalation, 2 times a day, # 10.2 Gm, Refills 0, Maintenance, 12/29/19 5:00:00 PM EDT, Aerosol Start Date: 12/29/19 Status: Ordered Medication Dispense Status: Completed Quantity: 10.2 Unit: g Total Allowed Fills: 1 Fills Dispensed: 0 Cardizem CD 240 mg/24 hours oral capsule, extended release 1 capsule, By Mouth, Daily, please have pcp fill next time, # 30 capsule, 6 Refills, Maintenance, 04/04/13 1:45:12 PM EDT, [facility]/pharmacy #[id number] Start Date: 04/04/13 Stop Date: 10/31/13 Status: Ordered Medication Dispense Status: Completed Quantity: 30.0 Unit: capsule Total Allowed Fills: 7 Fills Dispensed: 0 Cetirizine = 10 mg, By Mouth, Daily, 0 Refills, Maintenance, 12/29/19 5:01:00 PM EDT Start Date: 12/29/19 Status: Ordered Medication Dispense Status: Completed Total Allowed Fills: 1 Fills Dispensed: 0 cholecalciferol 5000 intl units oral capsule 1 capsule = 5,000 International_Units, By Mouth, Every week, 0 Refills, Maintenance, 01/28/13 4:20:17 AM EDT Start Date: 01/28/13 Status: Ordered Medication Dispense Status: Completed Total Allowed Fills: 1 Fills Dispensed: 0 clonazepam 1 mg oral tablet 1 tablet = 1 mg, By Mouth, 3 times a day, # 12 tablet, 0 Refills, Maintenance, 01/31/13 10:47:33 AM EDT, Tablet Start Date: 01/31/13 Status: Ordered Medication Dispense Status: Completed Quantity: 12.0 Unit: tablet Total Allowed Fills: 1 Fills Dispensed: 0 Clotrimazole 1% Topical 1 application, Topically, 2 times a day, 0 Refills, Maintenance, Cream Start Date: 12/29/19 Status: Ordered Medication Dispense Status: Completed Total Allowed Fills: 1 Fills Dispensed: 0 cromolyn ophthalmic 4% solution 1 drops, Eyes, Both, 4 times a day, # 10 mL, 0 Refills, Maintenance, 05/18/12 2:29:11 AM EDT, Solution Start Date: 05/18/12 Status: Ordered Medication Dispense Status: Completed Quantity: 10.0 Unit: mL Total Allowed Fills: 1 Fills Dispensed: 0 diclofenac 1% topical gel Topically, 0 Refills, Maintenance, 12/29/19 5:03:00 PM EDT Start Date: 12/29/19 Status: Ordered Medication Dispense Status: Completed Total Allowed Fills: 1 Fills Dispensed: 0 Dilaudid 2 mg oral tablet 1 tablet = 2 mg, By Mouth, Every 6 hours, PRN for pain, 0 Refills, Maintenance, 02/26/21 11:05:00 AMEDT, Tablet, Partial fill upon patient request if the prescription is for a schedule II opioid drug. Start Date: 02/26/21 Status: Ordered Medication Dispense Status: Completed Total Allowed Fills: 1 Fills Dispensed: 0 docusate sodium 100 mg oral capsule 1 capsule = 100 mg, By Mouth, 2 times a day, # 30 capsule, 0 Refills, Maintenance, 01/31/13 11:29:17AM EDT, Capsule Start Date: 01/31/13 Status: Ordered Medication Dispense Status: Completed Quantity: 30.0 Unit: capsule Total Allowed Fills: 1 Fills Dispensed: 0 doxepin 10 mg oral capsule 1 capsule = 10 mg, By Mouth, 0 Refills, Maintenance, 12/29/19 5:04:00 PM EDT Start Date: 12/29/19 Status: Ordered Medication Dispense Status: Completed Total Allowed Fills: 1 Fills Dispensed: 0 ferrous sulfate 160 mg oral tablet, extended release 1 tablet = 160 mg, By Mouth, Daily, # 90 tablet, 3 Refills, Maintenance, 05/18/24 5:55:00 PM EDT, ER Tablet, [facility]/pharmacy #[id number], Partial fill upon patient request if the prescription is for a schedule II opioid drug., 160.02, cm, 02/11/24 13:41:00 EDT, Height Start Date: 05/18/24 Status: Ordered Medication Dispense Status: Completed Quantity: 90.0 Unit: tablet Total Allowed Fills: 4 Fills Dispensed: 0 FREESTYLE NAJMA 14 DAY SENSOR FREESTYLE NAJMA 14 DAY SENSOR, See Instructions, # 2 each, Refills 8, Tot. Refills 8, Maintenance, Use to monitor blood glucose levels before meals and at bedtime. E11.9, 10/23/20 11:01:00 AM EST, Supply, 160.02, cm, 08/30/20 11:21:00 EST, Height, 83.4, kg, 01/10/20 7:33:00 EDT, Dry Weight Start Date: 10/23/20 Status: Ordered Medication Dispense Status: Completed Quantity: 2.0 Unit: each Total Allowed Fills: 9 Fills Dispensed: 0 FreeStyle najma 2 14 Day sensor FreeStyle najma 2 14 Day sensor, See Instructions, # 2 each, Refills 11, Tot. Refills 11, Maintenance, Use sensor to check blood glucose continously, E11.65, 11/22/20 4:10:00 PM EST, Supply, 160.02, cm, 08/30/20 11:21:00 EST, Height, 83.4, kg, 01/10/20 7:33:00 EDT, Dry Weight Start Date: 11/22/20 Status: Ordered Medication Dispense Status: Completed Quantity: 2.0 Unit: each Total Allowed Fills: 12 Fills Dispensed: 0 FREESTYLE NAJMA READER FREESTYLE NAJMA READER, See Instructions, # 1 each, Refills 0, Tot. Refills 0, Maintenance, Use to monitor blood glucose levels before meals and at bedtime. E11.9, 08/02/20 2:53:00 PM EDT, Supply, 160.02, cm, 05/28/20 10:36:00 EDT, Height, 83.4, kg, 01/10/20 7:33:00 EDT, Dry Weight Start Date: 08/02/20 Status: Ordered Medication Dispense Status: Completed Quantity: 1.0 Unit: each Total Allowed Fills: 1 Fills Dispensed: 0 Freestyle Najma Sensor See Instructions, # 1 each, Refills 0, Tot. Refills 0, Maintenance, Use sensor to monitor blood glucose 4x a day., 10/08/20 10:21:00 AM EST, Needs insurance override. Sensor fell of early., Supply, 160.02, cm, 08/30/20 11:21:00 EST, Height, 83.4, kg, 01/10/20 7:33:00 EDT, Dry Weight Start Date: 10/08/20 Stop Date: 11/07/20 Status: Ordered Medication Dispense Status: Completed Quantity: 1.0 Unit: each Total Allowed Fills: 1 Fills Dispensed: 0 Freestyle Lite Lancets See Instructions, # 200 each, Refills 6, Tot. Refills 6, Maintenance, use to check SMBG 4times daily for Dx E 11.9, 11/02/24 9:31:00 AM EST, Compound, 160.02, cm, 09/05/24 11:26:00 EST, Height Start Date: 11/02/24 Status: Ordered Medication Dispense Status: Completed Quantity: 200.0 Unit: each Total Allowed Fills: 7 Fills Dispensed: 0 Freestyle Lite Monitor See Instructions, # 1 each, Maintenance, pt to check blood sugar 4x daily as directed for dx of E11.65, 11/22/18 3:35:38 PM EST, Compound Start Date: 11/22/18 Status: Ordered Medication Dispense Status: Completed Quantity: 1.0 Unit: each Total Allowed Fills: 1 Fills Dispensed: 0 furosemide 20 mg oral tablet 1 tablet = 20 mg, By Mouth, Daily, 0 Refills, Maintenance, 08/16/10 10:19:21 AM EDT Start Date: 08/16/10 Status: Ordered Medication Dispense Status: Completed Total Allowed Fills: 1 Fills Dispensed: 0 gabapentin 600 mg oral tablet 1 tablet, By Mouth, 3 times a day, # 90 tablet, 6 Refills, Maintenance, 08/19/22 6:20:00 PM EST, [facility] [id number], 160.02, cm, 01/30/22 13:36:00 EDT, Height, 88.1, kg, 02/26/21 7:15:00 EDT, Dry Weight Start Date: 08/19/22 Status: Ordered Medication Dispense Status: Completed Quantity: 90.0 Unit: tablet Total Allowed Fills: 1 Fills Dispensed: 0 gemfibrozil 600 mg oral tablet 1 tablet = 600 mg, By Mouth, Daily, 0 Refills, Maintenance, 08/16/10 10:18:20 AM EDT Start Date: 08/16/10 Status: Ordered Medication Dispense Status: Completed Total Allowed Fills: 1 Fills Dispensed: 0 Humalog Kwik Pen 100 units/mL subcutaneous injection See Instructions, 4-12 units Subcutaneous Injection 3 times a day with meals, # 50 mL, 11 Refills, Maintenance, 02/11/24 2:17:00 PM EDT, Solution, [facility]/pharmacy #[id number], Partial fill upon patient request if the prescription is for a schedule II opioid drug., 160.02, cm, 02/11/24 13:41:00 EDT, Height Start Date: 02/11/24 Status: Ordered Medication Dispense Status: Completed Quantity: 50.0 Unit: mL Total Allowed Fills: 12 Fills Dispensed: 0 Indications: Type 2 diabetes mellitus without complications; Lancet Device, BD See Instructions, # 1 each, Refills 0, Tot. Refills 0, Maintenance, Use to prick fingertips up to 4times a day for blood glucose monitoring, E11.9, 04/19/20 11:20:00 AM EDT, Supply, 160.02, cm, 01/10/20 7:33:00 EDT, Height, 83.4, kg, 01/10/20 7:33:00 EDT, Dry Weight Start Date: 04/19/20 Status: Ordered Medication Dispense Status: Completed Quantity: 1.0 Unit: each Total Allowed Fills: 1 Fills Dispensed: 0 Lantus Solostar Pen 100 units/mL subcutaneous solution See Instructions, INJECT 35 UNITS SUBCUTANEOUS DAILY, # 15 Unknown, 11 Refills, Maintenance, 5/2/242:17:00 PM EDT, [id number], 160.02, cm, 02/11/24 13:41:00 EDT, Height Start Date: 02/11/24 Status: Ordered Medication Dispense Status: Completed Quantity: 15.0 Unit: Unknown Total Allowed Fills: 12 Fills Dispensed: 0 Levalbuterol 0 Refills, Maintenance, 12/29/19 5:06:00 PM EDT Start Date: 12/29/19 Status: Ordered Medication Dispense Status: Completed Total Allowed Fills: 1 Fills Dispensed: 0 Lidocaine Topically, 2 times a day, PRN Pain , Moderate, 0 Refills, Maintenance, 12/29/19 5:06:00 PM EDT Start Date: 12/29/19 Status: Ordered Medication Dispense Status: Completed Total Allowed Fills: 1 Fills Dispensed: 0 Loratadine By Mouth, Maintenance, 09/04/15 1:12:06 PM EST Start Date: 09/04/15 Status: Ordered Medication Dispense Status: Completed Total Allowed Fills: 1 Fills Dispensed: 0 meclizine 25 mg oral tablet 1 tablet = 25 mg, By Mouth, 3 times a day, PRN for dizziness, # 30 tablet, 0 Refills, Maintenance, 12/29/19 5:07:00 PM EDT, Tablet Start Date: 12/29/19 Status: Ordered Medication Dispense Status: Completed Quantity: 30.0 Unit: tablet Total Allowed Fills: 1 Fills Dispensed: 0 metFORMIN 1000 mg oral tablet 1 tablet = 1,000 mg, By Mouth, 2 times a day, # 60 tablet, 11 Refills, Maintenance, 02/11/24 2:18:00 PM EDT, Tablet, [facility]/pharmacy #[id number], 160.02, cm, 02/11/24 13:41:00 EDT, Height Start Date: 02/11/24 Stop Date: 02/05/25 Status: Ordered Medication Dispense Status: Completed Quantity: 60.0 Unit: tablet Total Allowed Fills: 12 Fills Dispensed: 0 NovoLog Inj = 18 units, Subcutaneous Infusion, 3 times a day before meals, 0 Refills, Maintenance, 02/22/21 12:51:00 PM EDT, Partial fill upon patient request if the prescription is for a schedule II opioid drug. Start Date: 5/14/21 Status: Ordered Medication Dispense Status: Completed Total Allowed Fills: 1 Fills Dispensed: 0 omeprazole 20 mg oral enteric coated capsule 1 capsule = 20 mg, By Mouth, Daily, 0 Refills, Maintenance, 05/18/12 2:27:13 AM EDT Start Date: 05/18/12 Status: Ordered Medication Dispense Status: Completed Total Allowed Fills: 1 Fills Dispensed: 0 Pen [place], 31 G x 8 mm BD Ultra Fine III See Instructions, # 150 each, Refills 10, Tot. Refills 10, Maintenance, e11.65, use 5 per day with insulins, 02/23/25 1:50:00 PM EDT, Supply, 160.02, cm, 02/23/25 13:17:00 EDT, Height Start Date: 02/23/25 Status: Ordered Medication Dispense Status: Completed Quantity: 150.0 Unit: each Total Allowed Fills: 11 Fills Dispensed: 0 prazosin 5 mg oral capsule 5 mg, 1, capsule, By Mouth, Daily, Refills 0, Maintenance, 12/29/19 5:09:00 PM EDT Start Date: 12/29/19 Status: Ordered Medication Dispense Status: Completed Total Allowed Fills: 1 Fills Dispensed: 0 rOPINIRole 2 mg oral tablet 1 tablet, By Mouth, Daily, # 30 tablet, 5 Refills, Maintenance, 01/09/25 8:28:00 AM EDT, [id number], 160.02, cm, 09/05/24 11:26:00 EST, Height Start Date: 01/09/25 Status: Ordered Medication Dispense Status: Completed Quantity: 30.0 Unit: tablet Total Allowed Fills: 1 Fills Dispensed: 0 Transderm-Scop 1 mg/72 hr transdermal film, extended release PLACE 1 PATCH ONTO THE SKIN EVERY 3RD DAY (EVERY 72 HOURS) FOR PREVENTION OF MOTION SICKNESS Start Date: 06/29/24 Status: Ordered Medication Dispense Status: Completed Total Allowed Fills: 1 Fills Dispensed: 0 Trelegy Ellipta Inhalation, 0 Refills, Maintenance, 12/29/19 5:09:00 PM EDT Start Date: 12/29/19 Status: Ordered Medication Dispense Status: Completed Total Allowed Fills: 1 Fills Dispensed: 0 Trulicity Pen 0.75 mg/0.5 mL subcutaneous solution 0.5 mL = 0.75 mg, Subcutaneous Injection, Every week, rotate injection sites, # 2.5 mL, 7 Refills, Maintenance, 04/27/24 2:27:00 PM EDT, Solution, [id number], Partial fill upon patient requestif the prescription is for a schedule II opioid drug., 160.02, cm, 02/11/24 13:41:00 EDT, Height Start Date: 04/27/24 Stop Date: 12/23/24 Status: Ordered Medication Dispense Status: Completed Quantity: 2.5 Unit: mL Total Allowed Fills: 8 Fills Dispensed: 0 Trulicity Pen 0.75 mg/0.5 mL subcutaneous solution See Instructions, 0.5 ML SUBCUTANEOUS INJECTION EVERY WEEK,X30 DAYS,INSTR:ROTATE INJECTION SITES, #2 Unknown, 11 Refills, Maintenance, 02/23/25 1:49:00 PM EDT, [id number], 160.02, cm, 02/23/25 13:17:00 EDT, Height Start Date: 02/23/25 Status: Ordered Medication Dispense Status: Completed Quantity: 2.0 Unit: Unknown Total Allowed Fills: 12 Fills Dispensed: 0 Victoza 18 mg/3 mL subcutaneous solution See Instructions, INJECT 1.8 MG UNDER THE SKIN ONCE DAILY, # 9 Unknown, 11 Refills, Maintenance, 02/11/24 2:16:00 PM EDT, [id number], 160.02, cm, 02/11/24 13:41:00 EDT, Height Start Date: 02/11/24 Status: Ordered Medication Dispense Status: Completed Quantity: 9.0 Unit: Unknown Total Allowed Fills: 12 Fills Dispensed: 0 Zoloft Tablet = 200 mg, By Mouth, Daily, 0 Refills, Maintenance, 05/18/12 2:27:41 AM EDT Start Date: 05/18/12 Status: Ordered Medication Dispense Status: Completed Total Allowed Fills: 1 Fills Dispensed: 0 Problem List Condition Confirmation Course Effective Dates Status H ealth Status Informant Asthma Confirmed Active Coronary arteriosclerosis 1 Confirmed 06/01/20 Active Gastroesophageal reflux disease 2 Confirmed Active HLD (hyperlipidemia) Confirmed Active Impingement syndrome of left shoulder region Confirmed Active Obese class I Confirmed Active Polysubstance abuse 3 Confirmed Active Type 2 diabetes mellitus Confirmed Active 1Outside Source Comment: Overview: 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 Stress test done 05/29/2020 2Outside Source Comment: [...] Care Team Personnel Name: Ej Balderas Position: [facility] Outreach Member Role: PCP Address: [address] [place] [address] Telecom: Name: Kalli Laboy RN Position: S RN Member Role: Primary Care Nurse Name: Andreina Rey RN Position: [facility] SN RN Member Role: Primary Care Nurse Name: Moira Sanchez RN Position: S RN Member Role: Primary Care Nurse Care Team Related Persons Name: VINNY MACKEY Name: TOYA HURT Insurance Providers Guarantor name: [facility] Information #: 1 Payer: [employer] Payer Identifier: JACKY Member Number: [id number] Group Number: [id number] Subscriber Identifier: JACKY Relationship to Subscriber: self Coverage Type: MEDICAID Coverage Verification Date: NA Telecom: NA Address:
--- OUTSIDE RECORDS SUMMARY | 2025-06-16 11:39 | XMS_ITS | Clinical Summary ---
Author Organization [employer] [facility] Address [address] [facility] [address] [place] [address] Care Team Providers Care Library Assistant Name Role Phone Unavailable Primary Care Provider Unavailabl e Encounters Date Type Department Care Team Description 05/02/2025 Population Health Risk Score [facility] (C3) Department [address] [facility] [address] [place] [address] Provider, Population Health Generic from Last 3 Months Social History Tobacco Use Types Packs/Day Years Used Date Smoking Tobacco: Never Assessed Comments Unknown Sex and Gender Information Value Date Recorded Sex Assigned at Not on file Legal Sex Female 9:29 PM EDT Gender Identity Not on file Sexual Orientation Not on file Plan of Treatment Health Maintenance Due Date Last Done Comments CT Colonography 1961 Colonoscopy 1961 Colorectal Cancer Screening 1961 Depression Screening 1961 FIT DNA/Cologuard 1961 FIT 1961 FOBT 1961 Lipid Panel 1961 SDOH Screening 1961 Sigmoidoscopy 1961 Disability Screening 1961 Alcohol/Substance Use Screening 1973 Tobacco Screening 1973 Hepatitis C Screening 12/20/1979 Pap Smear 1982 Cervical Cancer Screening 12/20/1991 HPV/Cotest 12/20/1991 Mammogram 2001 Pneumococcal Vaccine: 50+ Years (3 of 3 - PCV20 or PCV21) 07/09/2021 07/09/2016, 07/18/2013 RSV Patients and Patients Aged 60 years or older (1 - Risk 60-74 years 1-dose series) 2021 COVID-19 Vaccine ( season) 2025 09/24/2023, 07/28/2022, 01/23/2022, Additional history exists Influenza Vaccine (#1) 2025 4, 07/02/2020, 08/16/2018, Additional history exists DTaP/Tdap/Td Vaccines (3 - Td or Tdap) 08/16/2028 08/16/2018, 05/04/2010 Hepatitis B Vaccines Completed 10/23/1998, 04/24/1998, 03/09/1998 HIV Screening Completed 01/25/2015 Zoster Vaccines Completed 12/05/2020, 08/11/2020 HIB Vaccines Aged Out No longer eligi [...] age to complete this topic Meningococcal B Vaccine Aged Out No l onger eligible based on patient's age to complete this topic Meningococcal Vaccine Aged Out No aidee ranjith eligible based on patient's age to complete this topic RSV under 20 months Aged Out No longe r eligible based on patient's age to complete this topic Rotavirus Vaccines Aged Out No longer eligible based on patient's age to complete this topic
--- OUTSIDE RECORDS SUMMARY | 2025-06-16 11:39 | XMS_ITS | Clinical Summary ---
Author Organization [facility] [employer] [facility] Address [address] [facility] [place] [address] Phone Care Team Providers Care Assistant Distribution Manager Name Role Phone Perry Youssef Primary Care Provider Allergies Active Allergy Reactions Criticality Noted Date Comments Penicillins 12/08/2024 Oxycodone-Acetaminophen 12/08/2024 Medications metFORMIN (GLUCOPHAGE) 1,000 mg tablet Take 1 tablet (1,000 mg total) by mouth 2 (two) times a day with meals. Active aspirin 81 mg chewable tablet Chew 1 tablet (81 mg total) 1 (one) time each day. Active atorvastatin (LIPITOR) 20 mg tablet Take 1 tablet (20 mg total) by mouth at bedtime. Active insulin glargine (LANTUS) 100 unit/mL injection Inject under the skin at bedtime. Active dilTIAZem CD (CARDIZEM CD) 240 mg 24 hr capsule Take 1 capsule (240 mg total) by mouth 1 (one) time each day. Active cetirizine (ZyrTEC) 10 mg tablet Take 1 tablet (10 mg total) by mouth 1 (one) time each day. Active ergocalciferol (VITAMIN D-2) 1,250 mcg (50,000 unit) capsule Take 1 capsule (50,000 Units total) by mouth 1 (one) time per week. Active clonazePAM (KlonoPIN) 0.5 mg tablet Take 1 tablet (0.5 mg total) by mouth 2 (two) times a day. Active docusate sodium (COLACE) 100 mg capsule Take 1 capsule (100 mg total) by mouth 2 (two) times a day. Active fluticasone furoate-vilante roL (Breo Ellipta) 200-25 mcg/dose inhaler Inhale by mouth. Active furosemide (LASIX) 40 mg tablet Take 1 tablet (40 mg total) by mouth 1 (one) time each day. Active gabapentin (NEURONTIN) 600 mg tablet Take 1 tablet (600 mg total) by mouth 3 (three) times a day. Active insulin lispro 100 unit/mL injection Inject under the skin 3 (three) times a day before meals. -Administer within 15 minutes of a meal Active liraglutide (Victoza 2-Roly) 0.6 mg/0.1 mL (18 mg/3 mL) injection Inject 1.2 mg under the skin 1 (one) time each day. Active lisinopriL (PRINIVIL,ZESTR IL) 20 mg tablet Take 1 tablet (20 mg total) by mouth 1 (one) time each day. Active levalbuterol (XOPENEX HFA) 45 mcg/actuation inhaler Inhale 1-2 puffs by mouth. Active LORazepam (ATIVAN) 0.5 mg tablet Take 1 tablet (0.5 mg total) by mouth if needed for anxiety. Active meloxicam (MOBIC) 15 mg tablet Take 1 tablet (15 mg total) by mouth 1 (one) time each day. Active montelukast (SINGULAIR) 10 mg tablet Take 1 tablet (10 mg total) by mouth at bedtime. Active mirabegron (Myrbetriq) 50 mg tablet extended release 24 hr 24 hr tablet Take 1 tablet (50 mg total) by mouth 1 (one) time each day. Active omeprazole (PriLOSEC) [address] capsule Take 1 capsule (40 mg total) by mouth 2 (two) times a day. Do not crush or chew. Active phenazopyridine (PYRIDIUM) 100 mg tablet Take 1 tablet (100 mg total) by mouth 3 (three) times a day if needed for bladder spasms. Active rOPINIRole (REQUIP) 1 mg tablet Take 1 tablet (1 mg total) by mouth 3 (three) times a day. Active scopolamine (TRANSDERM-SCOP ) 1 mg over 3 days patch 3 day Apply 1 patch topically every 3rd (third) day. Active trospium (SANCTURA) 20 mg tablet Take 1 tablet (20 mg total) by mouth 2 (two) times a day. Active dulaglutide (Trulicity) 0.75 mg/0.5 mL pen injector injection Inject 0.5 mL (0.75 mg total) under the skin every 7 (seven) days. Active Active Problems Problem Noted Date Diagnosed Date HTN (hypertension) 12/08/2024 CAD (coronary artery disease) 12/08/2024 Encounters Date Type Department Care Team Description 03/31/2025 11:30 AM EDT - 03/31/2025 11:59 PM EDT Hospital Encounter [facility] Xray [address] [place] [address] Headache, unspecified; Other chronic pain Discharge Disposition: Home or Self Care from Last 3 Months Medical History Medical History Date Comments Depression DX:Depression Polysubstance abuse ([facility] [place], [facility] V28) DX:Polysubstance abuse ([facility]) GERD (gastroesophageal reflux disease) DX:GERD (gastroesophageal reflux disease) Obesity DX:Obesity Diabetes mellitus ([facility] V 24, [facility] V28) DX:Diabetes mellitus ([facility]); COMMENT: type2 Osteoarthritis DX:Osteoarthriti s; COMMENT: both knees Vitamin D deficiency DX:Vitamin D deficiency Tachycardia DX:Tachycardia Hypertension DX:Hypertension COPD (chronic obstructive pu lmonary disease) ([facility], [facility] V28) DX:COPD (chronic o bstructive pulmonary disease) ([facility]) Hemorrhoids DX:Hemorrhoids Plantar fasciitis DX:Plantar fas ciitis [...] Value Date Recorded Sex Assigned at Female 01/21/2025 10:35 AM EDT Legal Sex Female 4:55 AM EST Gender Identity Female 01/21/2025 10:35 AM EDT Sexual Orientation Straight 01/21/2025 10 :35 AM EDT Obstetrics History Last Filed Vital Signs Vital Sign Reading Time Taken Comments Blood Pressure 115/73 01/21/2025 11:41 AM EDT Pulse 87 01/21/2025 11:41 AM EDT Temperature 36.8 C (98.2 F) 01/21/2025 11:41 AM EDT Respiratory Rate 16 01/21/2025 11:4 1 AM EDT Oxygen Saturation 96% 01/21/2025 11: 41 AM EDT Inhaled Oxygen Concentration - - Weight 90.7 kg (199 lb 15.3 oz) 025 11:45 AM EDT Height 157.5 cm (5' 2 ) 01/21/2025 11:4 5 AM EDT Body Mass Index 36.57 01/21/2025 11:45 AM EDT Plan of Treatment Health Maintenance Due Date Last Done Comments Diabetes: Annual Foot Exam 12/20/1971 Diabetes: Annual Retina Eye Exam 12/20/1971 Hepatitis A Vaccines (1 of 2 - Risk 2-dose series) 1980 Cervical Cancer Screening: Pap Smear 1982 Pneumococcal Vaccine: 50+ Years (3 of 3 - PCV20 or PCV21) 07/09/2021 07/09/2016, 07/18/2013 RSV Immunization Adult Patients (1 - Risk 60-74 years 1-dose series) 2021 Colorectal Cancer Screening: Colonoscopy 09/14/2022 Social Influencers of Health Screening 09/14/2022 Diabetes: Annual Urine Albumin-Creatinine Ratio (uACR) 10/24/2023 10/24/2022 Depression Screening 10/12/2024 Diabetes: Blood Sugar Control Test (HGBA1C) 02/28/2025 08/31/2024 Influenza Vaccine (#1) 2025 4, 06/24/2023, 07/28/2022, Additional history exists Breast Cancer Screening 09/07/2025 09/07/20 23, 09/05/2022, 09/02/2021, Additional history exists Diabetes: Annual GFR (Glomerular Filtration Rate) 12/09/2025 12/09/2024, 02/01/2024 Hypertension/CHF/CAD Annual BMP Blood Test 12/09/2025 12/09/2024, 02/01/2024 Cholesterol Screening (Lipid Panel) 08/31/2029 08/31/2024, 08/31/2024, 10/24/2022, Additional history exists DTaP,Tdap,and Td Vaccines (4 - Td or Tdap) 05/25/2032 05/25/2022, 08/16/2018, 05/04/2010 Hepatitis B Vaccines Completed 10/23/1998, 04/24/1998, 03/09/1998 HIV Screening Completed 01/25/2015 Hepatitis C Screening Completed 01/25/2015 Zoster Vaccines Completed 12/05/2020, 08/11/2020 COVID-19 Vaccine Completed 07/29/2024, , 01/28/2023, Additional history exists HIB Vaccines Aged Out [...] Procedure Name Priority Date/Time Associated Diagnosis Comments XR PARANASAL SINUSES 3+ VIEWS Routine 03/31/2025 11:42 AM EDT Headache, unspecified Other chronic pain BASIC METABOLIC PANEL Routine 12/09/2024 10:27 AM EST History of tachycardia ELSA SCREENING DIGITAL Routine 09/07/2023 3:19 PM EST Encounter for screening mammogram for malignant neoplasm of breast from Last 3 Months or Most Recently Relevant to Health Maintenance Results * XR Paranasal Sinuses 3+ Views (03/31/2025 11:42 AM EDT) Anatomical Region Laterality Modality Head and Neck Radiographic [place] ging 03/31/2025 12:0 4 PM EDT Impressions 03/31/2025 12:05 PM EDT Normal examination of the paranasal sinuses. Code 37218 -------- FINAL REPORT -------- Dictated By: Tripp Damon Dictated Date: 03/31/2025 12:04 ET Assigned Physician: Tripp Damon Reviewed and Electronically Signed By: Tripp Damon Signed Date: 03/31/2025 12:05 ET Workstation ID: [id number] Transcribed By: Self Edit Transcribed Date: 03/31/2025 12:04 ET Narrative 03/31/2025 12:05 PM EDT HISTORY: The patient is a 64-year-old female with headache. FINDINGS: Zazueta, Clifford, lateral, and submental vertex views of the paranasal sinuses are obtained. The study demonstrates normal aeration of the maxillary, ethmoid, frontal, and sphenoid sinuses. There is no air-fluid level, bony erosion, mucoendosteal thickening, or soft tissue mass. Procedure Note Tripp Damon MD - 03/31/2025 HISTORY: The patient is a 64-year-old female with headache. FINDINGS: Zazueta, Clifford, lateral, and submental vertex views of theparanasal sinuses are obtained. The study demonstrates normal aeration ofthe maxillary, ethmoid, frontal, and sphenoid sinuses. There is noair-fluid level, bony erosion, mucoendosteal thickening, or soft tissuemass. IMPRESSION: Normal examination of the paranasal sinuses. Code 45179 -------- FINAL REPORT -------- Dictated By: Tripp Damon Dictated Date: 03/31/2025 12:04 ET Assigned Physician: Tripp Damon Reviewed and Electronically Signed By: Tripp Damon Signed Date: 03/31/2025 12:05 ET Workstation ID: [id number] Transcribed By: Self Edit Transcribed Date: 03/31/2025 12:04 ET us Grover Wills MD IMG XR PROCEDURES Final Re sult * (ABNORMAL) Basic metabolic panel (12/09/2024 10:27 AM EST) Sodium 146(H) 133 - 145 mmol/L LAB CHEMISTRY METHOD 12/09/2024 11:51 AM [facility] Potassium 3.6 3.5 - 5.5 mmol/L LAB CHEMISTRY METHOD 12/09/2024 11:51 AM [facility] Chloride 112(H) 96 - 110 mmol/L LAB CHEMISTRY METHOD 12/09/2024 11:51 AM [facility] CO2 26 21 - 32 mmol/L LAB CHEMISTRY METHOD 12/09/2024 11:51 AM [facility] Anion Gap 8 3 - 11 LAB CHEMISTRY METHOD 12/09/2024 11:51 AM [facility] Glucose 248(H) 70 - 100 mg/dL LAB CHEMISTRY METHOD 12/09/2024 11:51 AM [facility] BUN 17 5 - 25 mg/dL LAB CHEMISTRY METHOD 12/09/2024 11:51 AM [facility] Creatinine 0.71 0.50 - 1.10 mg/dL LAB CHEMISTRY METHOD 12/09/2024 11:51 AM [facility] eGFR 96 >=60 mL/min/1. 73m2 LAB CHEMISTRY METHOD 12/09/2024 11:51 AM [facility] Comment:Calculation based on the Chronic Kidney Disease Epidemiology Collaboration (CKD-EPI) equation refit without adjustment for race. BUN/Creatinine Ratio 23.9 LAB CHEMISTRY METHOD 12/09/2024 11:51 AM [facility] Calcium 9.1 8.5 - 10.5 mg/dL LAB CHEMISTRY METHOD 12/09/2024 11:51 AM [facility] Blood Venous blood specimen / Unknown Venipuncture / Unknown 12/09/2024 10:27 AM EST 12/09/2024 10:42 AM EST us Jordon Mckoy MD LAB BLOOD ORDERABLES Final Resul t [facility] [address] [place] [address], [place] [phone] * [facility] SCREENING DIGITAL (09/07/2023 3:19 PM EST) Anatomical Region Laterality Modality Mammography 09/07/2023 2:01 PM EST Narrative 09/07/2023 3:19 PM EST [facility] Diagnostic Imaging Department [address] [place] [id number] Patient: JASMEET WILLS/Age/Sex: 1960 - 62 - F Unit#: [id number] [facility] CLI Mnemonic/Ordering Site: [facility] Ordering Physician: PERRY YOUSSEF [facility] Screening Digital - 09/07/23 - [id number] Report Status:Signed EXAM: [facility] Screening Digital EXAM DATE AND TIME: 09/07/2023 2:24 PM HISTORY: Annual screening COMPARISON: Multiple exams dating back to 2002 TECHNIQUE: Bilateral digital breast tomosynthesis was performed in the CC and MLO projections. Computer aided detection with Nexis Vision 3D 3.1 was employed. TISSUE DENSITY: b. There are scattered areas of fibroglandular density. FINDINGS: No suspicious masses, grouped microcalcifications, or areas of architectural distortion are seen. The skin and vascularity are unremarkable. IMPRESSION: Stable mammographic appearance of the breasts. No evidence of malignancy is seen. A negative mammogram in the presence of a clinically suspicious palpable abnormality does not preclude the possibility of malignancy or alter the indications for biopsy. BI-RADS: Category 1: Negative RECOMMENDATION(S): 1: Routine screening mammogram BILATERAL in 1 year. 3341F, 7025F Dictating Physician: STEFANIE BOSE MD Electronically Signed by: STEFANIE BOSE MD Dic Date/Time: 09/07/231517 Sign date/Time: 09/07/231518 Procedure Note Stefanie Bose MD - 11/17/2023 [facility] Diagnostic Imaging Department [address] [place] [id number] Patient: JASMEET WILLS./Age/Sex: 1960 - 62 - F Unit#: [id number] Location/Status: [facility] CLI Mnemonic/Ordering Site: [facility] Ordering Physician: PERRY YOUSSEF [facility] Screening Digital - 09/07/23 - [id number] Report Status:Signed EXAM: [facility] Screening Digital EXAM DATE AND TIME: 09/07/2023 2:24 PM HISTORY: Annual screening COMPARISON: Multiple exams dating back to 2002 TECHNIQUE: Bilateral digital breast tomosynthesis was performed in the CCand MLO projections. Computer aided detection with Nexis Vision 3D 3.1was employed. TISSUE DENSITY: b. There [...] screening mammogram BILATERAL in 1 year. 3341F, 7075F Dictating Physician: STEFANIE BOSE MD Electronically Signed by: STEFANIE BOSE MD Dic Date/Time: 09/07/231517 Sign date/Time: 09/07/231518 Perry NOLASCO IMG BI PROCEDURES Final Result from Last 3 Months or Most Recently Relevant to Health Maintenance Insurance MEDICAID - [place] Care Teams Assistant Distribution Manager Relationship Specialty Start Date End Date Perry Youssef PA [address] [place] [address] PCP - General Internal Medicine 07/27/20
--- NOTE | 2025-06-16 13:36 | MHC.OFFVIS ---
Vital Signs 06/16/25 13:37 BP 148/80 H Blood Pressure Location Rt brachial Position Sitting Pulse 74 Pulse Source Pulse Oximeter Pulse Oximetry (%) 99 Oxygen Delivery Method Room Air Intake Visit Reasons: Xolair Optician Apprentice Dispensing Required: Yes Optician Apprentice Dispensing Services: Optician Apprentice Dispensing Present Optician Apprentice Dispensing Name: Razia CAI Information Interpreted: clinical only Allergies acetaminophen (Percocet) Allergy (Severe, Verified 06/16/25 13:37) Redness and Vomitting oxycodone (Percocet) Allergy (Severe, Verified 06/16/25 13:37) Redness and Vomitting Medication List - Last Reconciled 06/16/25 by Ana Denis LPN amoxicillin-pot clavulanate 875-125 mg 1 tab PO BID 10 days aspirin (Adult Low Dose Aspirin) 81 mg PO DAILY azelastine 2 sprays intranasal BID 30 days cetirizine (Zyrtec) 10 mg PO DAILY PRN doxycycline monohydrate 100 mg PO BID 14 days epinephrine (EpiPen 2-Roly) 0.3 mg (0.3 mL) IM Q10M PRN 30 days fluticasone furoate-vilanterol 200-25 mcg/dose (Breo Ellipta) 1 ea PO DAILY fluticasone propionate 50 mcg/actuation 2 sprays intranasal DAILY 30 days gabapentin 300 mg PO TID ibuprofen 600 mg PO TID PRN 10 days levalbuterol HCl 1.25 mg (3 mL) inhalation BID 30 days lidocaine 5% (Lidoderm) 1 patch topical DAILY 30 days montelukast 10 mg PO DAILY omalizumab (Xolair) 75 mg (0.5 mL) subcut Q2W 4 weeks omalizumab (Xolair) 300 mg (2 mL) subcut Q2W 4 weeks umeclidinium 62.5 mcg/actuation (Incruse Ellipta) 1 inh inhalation DAILY 30 days Xopenex HFA 45 mcg/actuation (levalbuterol tartrate) 2 puffs inhalation Q6H PRN 30 days NS HPI HPI Xolair: Details: Zainab is here for a Xolair teach she was educated on hand washing, injection preparation, administration, and disposal.? She recieved her first 3 doses in the infusion center without reaction. Zainab was able to return demonstrate proper technique for hand washing, injection preparation, administration and disposal of needle and states she has no questions at this time. Medication Xolair 375mg autoinjectors (300mg and 75mg, patient?s own meds) dose of 375mg given by the patient in 2 SQ injections; injection #1 300mg pen in her R thigh, lot# [id number] exps. 03/2026. Injection #2 75mg pen in her L thigh, lot# [id number] exps. 11/2025. Patient aware her injections are every 2 weeks. Nurse visit only.? [facility] Medical History (Updated 03/28/25 @ 20:37 by Grover Wills MD) Chronic headaches Allergies Asthma-COPD overlap syndrome Asthma ANN on CPAP Pulmonary nodules Personal history of nicotine dependence Palpitations Family History (System 07/31/22 @ 09:04 by Saniya Alvarez) Other Asthma Social History Patient Tobacco Use Status: Former Tobacco user Physical Exam Vital Signs: Last Vital Signs Pulse 74 06/16/25 13:37 BP 148/80 H 06/16/25 13:37 Pulse Ox 99 06/16/25 13:37 Oxygen Delivery Method Room Air 06/16/25 13:37 Assessment & Plan Assessment & Plan (1) Asthma: Code(s): J45.909 - Unspecified asthma, uncomplicated Category: Medical Qualifiers: Asthma complication type: uncomplicated Asthma persistence: persistent Asthma severity: moderate Qualified Code(s): J45.40 - Moderate persistent asthma, uncomplicated Plan Xolair Coding Level of Care Code Established Pt Est Pt Level 1 (91027) Patient Type Established Diagnoses Moderate persistent asthma without complication J45.40 Asthma complication type: uncomplicated Asthma persistence: persistent Asthma severity: moderate Comment NURSE VISIT ONLY
[2025-06-16 13:37] VITALS: BP 148/80; PULSE 74; O2SAT 99
== END 2025-06-16 15:54 | disposition home or self-care (01) ==
LOC: HO.HPS 10:40
PROVIDERS: Visit Provider Hospitalist
DX: J45.40 Moderate persistent asthma, uncomplicated (principal)

== ENCOUNTER → 2025-06-16 10:40 | Outpatient (BNVA) | payer MEDICAID, SELFPAY | PROVIDERS: Visit Provider Hospitalist | DX: J45.40 Moderate persistent asthma, uncomplicated (principal) | CPT/HCPCS: 99211 ==

== ENCOUNTER 2025-09-02 08:39 | Outpatient (REF) | payer MEDICAID, SELFPAY ==
--- NOTE | ~2025-09-02 | CT_ITS ---
CLINICAL HISTORY: Z87.891 - Personal history of nicotine dependence CT lung cancer screening Technique: Axial CT images of the chest using low-dose technique. Effective radiation dose: DLP 104.3 mGy.cm, CTDIvol 3.59 mGy Referring provider counseled the patient on shared decision-making for LDCT screening. Additional counseling was provided on smoking cessation. Comparison: 08/17/2024 Findings: Lung nodules RUL: None RML: None RLL: None ADAIR: None Lingula: None LLL: None COPD: None Pleural spaces: Normal Coronary artery calcifications: Mild Limited upper abdomen: Unremarkable Other: None Impression: LungRADS 1: Negative exam. Continue annual screening with low dose Chest CT in 12 months. ##L1## This document has been electronically signed by: Khris Hobson MD on 09/04/2025 16:11:56
--- OUTSIDE RECORDS SUMMARY | 2025-09-02 08:41 | XMS_ITS | Clinical Summary ---
Author Organization [employer] Address [address] [facility] [address] [place] [address] Care Team Providers Care Electric Motor Fitter Name Role Phone Unavailable Primary Care Provider Unavailabl e Social History Tobacco Use Types Packs/Day Years [...] Cancer Screening 12/20/1991 HPV/Cotest 12/20/1991 Mammogram 2001 RSV Patients and Patients Aged 60 years or older (1 - Risk 50-74 years 1-dose series) 12/20/2011 Pneumococcal Vaccine: 50+ Years (3 of 3 - PCV20 or PCV21) 07/09/2021 07/09/2016, 07/18/2013 COVID-19 Vaccine ( season) 2025 09/24/2023, 07/28/2022, 01/23/2022, Additional history exists Influenza Vaccine (#1) 2025 , 06/24/2023, 07/28/2022, Additional history exists DTaP/Tdap/Td Vaccines (4 - Td or Tdap) 05/25/2032 [...]
--- OUTSIDE RECORDS SUMMARY | 2025-09-02 08:41 | XMS_ITS | Clinical Summary ---
Author Organization [facility] Address [address] [place] [address] Phone Care Team Providers Care Case Finishing Machine Adjuster Name Role Phone Perry Youssef Primary Care Provider [phone] Allergies Active Allergy Reactions Criticality Noted Date Comments Oxycodone-Acetaminophen Rash 12/08/2024 Medications metFORMIN (GLUCOPHAGE) 1,000 mg tablet [...] the skin every 7 (seven) days. Active scopolamine (TRANSDERM-SCOP ) 1 mg over 3 days patch 3 day Apply 1 patch topically every 3rd (third) day. 10 patch 08/29/20 25 Active Problems Problem Noted Date Diagnosed Date HTN (hypertension) 12/08/2024 CAD (coronary artery disease) 12/08/2024 Encounters Date Type Department Care Team Description 07/30/2025 11:52 AM EDT - 07/30/2025 3:00 PM EDT Emergency [facility] [address] [place] [address] Liliana Mathew MD Vertigo (Primary Dx) Discharge Disposition: Home or Self Care from Last 3 Months Medical History Medical History Date Comments Depression DX:Depression Polysub[place] [place] [facility] [place] DX:Polysubstance abuse ([facility]) GERD (gastroesophageal reflux disease) DX:GERD (gastroesophageal reflux disease) Obesity DX:Obesity Diabetes mellitus [place] [place] [facility] [place] [facility] [place] DX:Diabetes mellitus ([facility]); COMMENT: type2 Osteoarthritis DX:Osteoarthriti s; COMMENT: both knees Vitamin D deficiency DX:Vitamin D deficiency Tachycardia DX:Tachycardia Hypertension DX:Hypertension COPD (chronic obstructive pu lmonary disease) ([facility] [place]24, [facility] [place] DX:COPD (chronic o bstructive pulmonary disease) ([facility]) Hemorrhoids DX:Hemorrhoids Plantar fasciitis DX:Plantar fas ciitis Bilateral medial epicondylit is of elbow joint DX:Bilateral medial epicondy litis of elbow joint Vertigo DX:Vertigo Coronary artery disease DX:Coron ty artery disease Asthma Social History Tobacco Use Types Packs/Day Years Used Date Smoking Tobacco: Former Smokeless Tobacco: Never Alcohol Use Standard Drinks/Week Comments No 0 (1 standard drink = 0.6 oz pur e alcohol) Comments No Sex and Gender Information Value Date Recorded Sex Assigned at Female 01/21/2025 10:35 AM EDT Legal Sex Female 4:55 AM EST Gender Identity Female 01/21/2025 10:35 AM EDT Sexual Orientation Straight 01/21/2025 10 :35 AM EDT Obstetrics History Last Filed Vital Signs Vital Sign Reading Time Taken Comments Blood Pressure 144/76 07/30/2025 11:48 AM EDT Pulse 88 07/30/2025 11:48 AM EDT Temperature 37.4 C (99.3 F) 07/30/2025 11:48 AM EDT Respiratory Rate 20 07/30/2025 11:48 AM EDT Oxygen Saturation 98% 07/30/2025 11:48 AM EDT Inhaled Oxygen Concentration - - Weight 88.9 kg (196 lb) 07/30/2025 11:48 AM EDT Height 157.5 cm (5' 2 ) 07/30/2025 11:48 AM EDT Body Mass Index 35.85 07/30/2025 11:48 AM EDT Plan of Treatment Health Maintenance Due Date Last Done Comments Diabetes: Annual Foot Exam 12/20/1971 Diabetes: Annual Retina Eye Exam 12/20/1971 Hepatitis A Vaccines (1 of 2 - Risk 2-dose series) 1980 Cervical Cancer Screening: Pap Smear 1982 Pneumococcal Vaccine: 50+ Years (3 of 3 - PCV20 or PCV21) 07/09/2021 07/09/2016, 07/18/2013 Social Influencers of Health Screening 09/14/2022 Diabetes: Annual Urine Albumin-Creatinine Ratio (uACR) 10/24/2023 10/24/2022 Depression Screening 10/12/2024 Diabetes: Blood Sugar Control Test (HGBA1C) 02/28/2025 08/31/2024 COVID-19 Vaccine ( season) 2025 07/29/2024, 09/24/2023, 01/28/2023, Additional history exists Breast Cancer Screening 09/07/2025 09/07/20 23, 09/05/2022, 09/02/2021, Additional history exists Diabetes: Annual GFR (Glomerular Filtration Rate) 07/30/2026 07/30/2025, 12/09/2024, 02/01/2024 Hypertension/CHF/CAD Annual BMP Blood Test 07/30/2026 07/30/2025, 12/09/2024, 02/01/2024 Colorectal Cancer Screening: FIT-DNA (Cologuard) 11/09/2026 11/09/2023 Cholesterol Screening (Lipid Panel) 08/31/2029 08/31/2024, 08/31/2024, 10/24/2022, Additional history exists DTaP,Tdap,and Td Vaccines (4 - Td or Tdap) 05/25/2032 05/25/2022, 08/16/2018, 05/04/2010 Hepatitis B Vaccines Completed 10/23/1998, 04/24/1998, 03/09/1998 HIV Screening Completed 01/25/2015 Hepatitis C Screening Completed 01/25/2015 Zoster Vaccines Completed 12/05/2020, 08/11/2020 Influenza Vaccine Completed 07/13/2025, , 06/24/2023, Additional history exists RSV Immunization Adult Patients Completed 07/13/2025 HIB Vaccines Aged Out No longer eligi [...] Procedure Name Priority Date/Time Associated Diagnosis Comments ECG ANNOTATED 07/31/2025 POCT GLUCOSE BLOOD Routine 07/30/2025 2: 43 PM EDT POCT GLUCOSE BLOOD Routine 07/30/2025 1: 55 PM EDT XR CHEST 2 VIEWS STAT 07/30/2025 1:45 PM EDT D-DIMER STAT 07/30/2025 1:04 PM EDT TROPONIN I HIGH SENSITIVITY STAT 07/30/2025 1:04 PM EDT ECG 12-LEAD STAT 07/30/2025 12:12 PM EDT CBC WITH AUTO DIFFERENTIAL STAT 07/30/2025 12:06 PM EDT MAGNESIUM STAT 07/30/2025 12:06 PM EDT BASIC METABOLIC PANEL STAT 07/30/2025 12:06 PM EDT CBC AND DIFFERENTIAL STAT 07/30/2025 12:06 PM EDT POCT GLUCOSE BLOOD Routine 07/30/2025 12 :00 PM EDT BURAK SCREENING DIGITAL Routine 09/07/2023 3:19 PM EST Encounter for screening mammogram for malignant neoplasm of breast from Last 3 Months or Most Recently Relevant to Health Maintenance Results * ECG-Annotated (07/31/2025) us Provider Onbase MD ECG ORDERABLES Final Result * POCT Glucose, blood (07/30/2025 2:43 PM EDT) Only the most recent of3 resultswithin the time period is included. Glucose POCT 73 70 - 100 mg/dL 07/30/2025 2:44 PM EDT [facility] Blood Capillary blood specimen / Unknown 07/30/2025 2:43 PM EDT 07/30/2025 2:45 PM EDT Liliana Mathew MD LAB POINT OF CARE TE ST DOCKED DEVICE UNSOLICITED RESULTS Final Result [facility] [address] [place] [address], [place] [phone] * XR Chest 2 Views (07/30/2025 1:45 PM EDT) Anatomical Region Laterality Modality Body Radiographic [place] 07/30/2025 1:53 PM EDT Impressions 07/30/2025 1:55 PM EDT No acute findings. -------- FINAL REPORT -------- Dictated By: Gui Chairez Dictated Date: 07/30/2025 13:53 ET Assigned Physician: Gui Chairez Reviewed and Electronically Signed By: Gui Chairez Signed Date: 07/30/2025 13:55 ET Workstation ID: [id number] Transcribed By: Self Edit Transcribed Date: 07/30/2025 13:53 ET Narrative 07/30/2025 1:55 PM EDT PROCEDURE: PA and lateral radiographs of the chest. HISTORY: dizziness dyspnea. COMPARISON: 02/05/2024. FINDINGS: Stable mild cardiomegaly. Lungs and pleural spaces are clear. Bones appear demineralized. Mild degenerative changes of the spine. Procedure Note Gui Chairez MD - 07/30/2025 PROCEDURE: PA and lateral radiographs of the chest. HISTORY: dizziness dyspnea. COMPARISON: 02/05/2024. FINDINGS: Stable mild cardiomegaly. Lungs and pleural spaces are clear. Bonesappear demineralized. Mild degenerative changes of the spine. IMPRESSION: No acute findings. -------- FINAL REPORT -------- Dictated By: Gui Chairez Dictated Date: 07/30/2025 13:53 ET Assigned Physician: Gui Chairez Reviewed and Electronically Signed By: Gui Chairez Signed Date: 07/30/2025 13:55 ET Workstation ID: [id number] Transcribed By: Self Edit Transcribed Date: 07/30/2025 13:53 ET Liliana Mathew MD IMG XR PROCEDURES Final Result * Troponin I high sensitivity (07/30/2025 1:04 PM EDT) High Sensitivity Troponin I 4 <=54 ng/L LAB CHEMISTRY METHOD 07/30/2025 2:08 PM EDT [facility] Blood Venous blood specimen / Unknown Venipuncture / Unknown 07/30/2025 1:04 PM EDT 07/30/2025 1:31 PM EDT [facility] - 07/30/2025 2:08 PM EDT High levels of biotin in samples may falsely decrease hsTroponin values. Use caution when interpreting hsTroponin results in patients taking biotin who exhibit renal impairment (eGFR <60) or in patients taking more than 20 mg/day of biotin. us Liliana Mathew MD LAB BLOOD ORDERABLES Final Resul t Performing Organization Address [facility] Co de Phone Number [facility] [address] [place] [address], [place] [phone] * D-dimer, quantitative (07/30/2025 1:04 PM EDT) D-Dimer, Quant (D-DU) <150 <=230 ng/mL DDU LAB COAGULATION METHOD 07/30/2025 1:50 PM EDT [facility] Blood Venous blood specimen / Unknown Venipuncture / Unknown 07/30/2025 1:04 PM EDT 07/30/2025 1:31 PM EDT [facility] - 07/30/2025 1:50 PM EDT D-Dimer <230 ng/mL (D-Dimer units) is the threshold for exclusion of DVT/PE. D-Dimer may be elevated in: Critically ill, severely infected, trauma patients, DIC, acute CVA, acute NM, unstable angina, AF, old age, , and smoking. D-Dimer may be decreased with: Initiation of heparin therapy and oral anticoagulants. us Liliana Mathew MD LAB BLOOD ORDERABLES Final Resul t Performing Organization Address [facility]/ZIP Co de Phone Number [facility] [address] [place] [address], [place] [phone] * ECG 12 lead (07/30/2025 12:12 PM EDT) [facility] Ventricular Rate ECG 79 BPM GEMUSE Atrial Rate 79 BPM GEMUSE P-R Interval 134 ms GEMUSE QRS Duration 86 ms GEMUSE Q-T Interval 372 ms GEMUSE QTc 426 ms GEMUSE P Wave [place] 58 degrees GEMUSE R [place] 10 degrees GEMUSE T [place] 23 degrees GEMUSE ECG Interpretation Normal sinus rhythm Normal ECG When compared with ECG of 08-DEC-2024 15:09, No significant change was found Confirmed by MD Arnaud, Yogesh ([id number]) on 07/31/2025 11:43:15 AM GEMUSE 07/30/2025 12:1 2 PM EDT 07/31/2025 11:43 AM EDT us Liliana Mathew MD ECG ORDERABLES Final Result GEMUSE * (ABNORMAL) CBC auto differential (07/30/2025 12:06 PM EDT) [facility] WBC 7.5 4.8 - 10.8 K/mcL LAB HEMETOLOGY METHOD 07/30/2025 1:02 PM EDT [facility] RBC 4.60 3.80 - 4.80 M/mcL LAB HEMETOLOGY METHOD 07/30/2025 1:02 PM EDT [facility] Hemoglobin 12.6 11.5 - 16.0 g/dL LAB HEMETOLOGY METHOD 07/30/2025 1:02 PM EDT [facility] Hematocrit 39.7 35.0 - 47.0 % LAB HEMETOLOGY METHOD 07/30/2025 1:02 PM EDT [facility] MCV 87.1 79.0 - 98.0 FL LAB [facility]OLOGY [facility] MCH 27.6 27.0 - 32.0 pcg LAB HEMETOLOGY METHOD 07/30/2025 1:02 PM EDT [facility] MCHC 31.7(L) 32.0 - 37.0 g/dL LAB HEMETOLOGY METHOD 07/30/2025 1:02 PM [facility] RDW 13.4 11.0 - 15.0 % LAB HEMETOLOGY METHOD 07/30/2025 1:02 PM [facility] Platelets 240 130 - 400 K/mcL LAB HEMETOLOGY METHOD 07/30/2025 1:02 PM [facility] MPV 11.5(H) 7.0 - 11.0 FL LAB HEMETOLOGY METHOD 07/30/2025 1:02 PM [facility] NRBC 0.0 <1.0 % LAB HEMETOLOGY METHOD 07/30/2025 1:02 PM [facility] NRBC Absolute 0.00 <0.10 K/mcL LAB HEMETOLOGY METHOD 07/30/2025 1:02 PM [facility] Neutrophils Relative 62.8 % LAB HEMETOLOGY METHOD 07/30/2025 1:02 [facility] Lymphocytes Relative 31.2 % LAB HEMETOLOGY METHOD 07/30/2025 1:02 PM [facility] Monocytes Relative 4.9 % LAB HEMETOLOGY METHOD 07/30/2025 1:02 PM [facility] Eosinophils Relative 0.4 % LAB HEMETOLOGY METHOD 07/30/2025 1:02 PM [facility] Basophils Relative 0.4 % LAB HEMETOLOGY METHOD 07/30/2025 1:02 PM [facility] Immature Granulocytes Relative 0.3 % LAB HEMETOLOGY METHOD 07/30/2025 1:02 PM [facility] Neutrophils Absolute 4.72 1.50 - 7.00 K/mcL LAB HEMETOLOGY METHOD 07/30/2025 1:02 PM EDT [facility] Lymphocytes Absolute 2.34 1.00 - 5.00 K/mcL LAB HEMETOLOGY METHOD 07/30/2025 1:02 PM EDT [facility] Monocytes Absolute 0.37 0.20 - 1.00 K/mcL LAB HEMETOLOGY METHOD 07/30/2025 1:02 PM EDT [facility] Eosinophils Absolute 0.03 0.00 - 0.50 K/[facility] LAB HEMETOLOGY METHOD 07/30/2025 1:02 PM EDT [facility] Basophils Absolute 0.03 0.00 - 0.20 K/mcL LAB HEMETOLOGY METHOD 07/30/2025 1:02 PM EDT [facility] Immature Granulocytes Absolute 0.02 0.00 - 0.03 K/mcL LAB HEMETOLOGY METHOD 07/30/2025 1:02 PM EDT [facility] Blood Venous blood specimen / Unknown Venipuncture / Unknown 07/30/2025 12:06 PM EDT 07/30/2025 12:56 PM EDT us Liliana Mathew MD LAB BLOOD ORDERABLES Final Resul t Performing Organization Address City/[facility]/ZIP Co de Phone Number [facility] [address] [place] [address], * (ABNORMAL) Magnesium (07/30/2025 12:06 PM EDT) Magnesium 1.8(L) 1.9 - 2.6 mg/dL LAB CHEMISTRY METHOD 07/30/2025 1:41 PM EDT [facility] Comment:Hemolysis present Blood Venous blood specimen / Unknown Venipuncture / Unknown 07/30/2025 12:06 PM EDT 07/30/2025 12:56 PM EDT us Liliana Mathew MD LAB BLOOD ORDERABLES Final Resul t [facility] [address] [place] [address], [place] [phone] * Basic metabolic panel (07/30/2025 12:06 PM EDT) Sodium 143 133 - 145 mmol/L LAB CHEMISTRY METHOD 07/30/2025 1:41 PM [facility] Potassium 4.0 3.5 - 5.5 mmol/L LAB CHEMISTRY METHOD 07/30/2025 1:41 PM [facility] Comment:Hemolysis present Chloride 110 96 - 110 mmol/L LAB CHEMISTRY METHOD 07/30/2025 1:41 PM [facility] CO2 27 21 - 32 mmol/L LAB CHEMISTRY METHOD 07/30/2025 1:41 PM [facility] Anion Gap 6 3 - 11 LAB CHEMISTRY METHOD 07/30/2025 1:41 PM [facility] Glucose 71 70 - 100 mg/dL LAB CHEMISTRY METHOD 07/30/2025 1:41 PM [facility] BUN 13 5 - 25 mg/dL LAB CHEMISTRY METHOD 07/30/2025 1:41 PM [facility] Creatinine 0.74 0.50 - 1.10 mg/dL LAB CHEMISTRY METHOD 07/30/2025 1:41 PM [facility] eGFR 91 >=60 mL/min/1. 73m2 LAB CHEMISTRY METHOD 07/30/2025 1:41 PM [facility] Comment:Calculation based on the Chronic Kidney Disease Epidemiology Collaboration (CKD-EPI) equation refit without adjustment for race. BUN/Creatinine Ratio 17.6 LAB CHEMISTRY METHOD 07/30/2025 1:41 PM [facility] Calcium 9.5 8.5 - 10.5 mg/dL LAB CHEMISTRY METHOD 07/30/2025 1:41 PM [facility] Blood Venous blood specimen / Unknown Venipuncture / Unknown 07/30/2025 12:06 PM EDT 07/30/2025 12:56 PM EDT us Liliana Mathew MD LAB BLOOD ORDERABLES Final Resul t [facility] [address] [place] [address], * BURAK SCREENING DIGITAL (09/07/2023 3:19 PM EST) Anatomical Region Laterality Modality Mammography 09/07/2023 2:01 PM EST Narrative 09/07/2023 3:19 PM EST [facility] Diagnostic Imaging Department [address] [place] [address] Patient: JASMEET WILLS /Age/Sex: 1960 - 62 - F Unit#: [id number] Location/Status: [facility] CLI Mnemonic/Ordering Site: [facility] Ordering Physician: PERRY YOUSSEF Burak Screening Digital - 09/07/23 - [id number] Report Status:Signed EXAM: Burak Screening Digital EXAM DATE AND TIME: 09/07/2023 2:24 PM HISTORY: Annual screening COMPARISON: Multiple exams dating back to 2002 TECHNIQUE: Bilateral digital breast tomosynthesis was performed in the CC and MLO projections. Computer aided detection with PostalGuard 3D 3.1 was employed. TISSUE DENSITY: b. [...] Routine screening mammogram BILATERAL in 1 year. 2821F, 7053F Dictating Physician: STEFANIE BOSE MD Electronically Signed by: STEAFNIE BOSE MD Dic Date/Time: 09/07/231517 Sign date/Time: 09/07/231518 Procedure Note Stefanie Bose MD - 11/17/2023 [facility] Diagnostic Imaging Department [address] [place] [address] Patient: JASMEET WILLSO.B./Age/Sex: 1960 - 62 - F Unit#: [id number] [facility]/Status[facility]emonic/Ordering Site: [facility] Ordering Physician: PERRY YOUSSEF [facility] Screening Digital - 09/07/231422 Report Status:Signed EXAM: [facility] Screening Digital EXAM DATE AND TIME: 09/07/2023 2:24 PM HISTORY: Annual screening COMPARISON: Multiple exams dating back to 2002 TECHNIQUE: Bilateral digital breast tomosynthesis was performed in the CCand MLO projections. Computer aided detection with iCAD ProFound AI 3D 3.1was employed. TISSUE DENSITY: b. There [...] Maintenance Insurance MEDICAID - [place] Care Teams Case Finishing Machine Adjuster Relationship Specialty Start Date End Date Perry Youssef PA [address] [place] [address] PCP - General Internal Medicine 07/27/20
== END 2025-09-02 08:40 | disposition home or self-care (01) ==
LOC: HO.CT 08:39
PROVIDERS: PCP Internal Medicine; Visit Provider Physician Assistant Medical
DX: Z12.2 Encounter for screening for malignant neoplasm of respiratory organs (principal); Z87.891 Personal history of nicotine dependence
CPT/HCPCS: 71271

== ENCOUNTER → 2025-09-02 08:41 | Outpatient (BNV) | payer MEDICAID, SELFPAY | PROVIDERS: PCP Internal Medicine; Visit Provider Radiology Diagnostic Radiology | DX: Z12.2 Encounter for screening for malignant neoplasm of respiratory organs (principal); Z87.891 Personal history of nicotine dependence | CPT/HCPCS: 71271 ==

== ENCOUNTER 2025-09-11 09:34 | Outpatient (AMB) | payer MEDICAID, SELFPAY ==
--- NOTE | 2025-09-11 09:39 | A.OFFVIS_ITS ---
Vital Signs 09/11/25 09:44 Height 5 ft 2 in Weight 199 lb 8.293 oz BMI 36.5 BP 140/76 H Blood Pressure Location Lt brachial Position Sitting Pulse 83 Pulse Source Pulse Oximeter Pulse Oximetry (%) 97 Oxygen Delivery Method Room Air Intake Visit Reasons: Obstructive sleep apnea Ceramic Mold Designer Required: Yes Ceramic Mold Designer Services: Ceramic Mold Designer Offered & Declined Ceramic Mold Designer Name: MD speaks tunisian Accompanied by: Self / Same As Patient Allergies acetaminophen (Percocet) Allergy (Severe, Verified 09/11/25 09:45) Redness and Vomitting oxycodone (Percocet) Allergy (Severe, Verified 09/11/25 09:45) Redness and Vomitting HPI Comments Details: The patient is a 64-year-old woman with known history of ANN on CPAP in addition to COPD.. From the cardiac standpoint, no history of any known coronary disease myocardial infarction or any other cardiac concerns. She is morbidly obese. She has type 2 diabetes and hypertension. Her medication list is not clear. She gets exertional shortness of breath. She also gets chest discomfort at different times. Sometimes at rest and sometimes during exertion. She also feels it a lot during night times. So far, completed an echocardiogram and stress test. 2020 the patient is here for pulmonary follow-up visit. She continues uses CPAP. CPAP therapy continues to be affecting beneficial. She does use it for more than 4 hours a night. We did download her machine her AHI is down to 2.3. It appears that the machine only goes up to 10 cm of water. She appears to need more than that. I will increase it to 12 cm of water maximum pressure. Patient needs to get supplies from [facility]. I will send a prescription over to them. In the meantime her respiratory status has been stable on the current respiratory inhaler. She has not had to use her rescue inhaler. Her biggest complaint is his left-sided chest discomfort. She did have cardiac stress test which was negative for any ischemic heart disease. The patient does have tenderness on palpation over the costochondral joints. 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 Patient is very uncomfortable. Makes it hard for her to breathe in because of the discomfort. She denies any trauma to the chest. She does have reflux disease she does take medication for it. 02/14/2021 the patient is here for pulmonary follow-up visit. Overall she is doing well. She still struggling with the CPAP because she feels like it is not enough pressure. Therefore, I increased her ramp pressure to 6 and her starting pressure to 8. In the meantime we also adjusted her mask. Seems to be feeling better. The CPAP therapy has been affecting beneficial in she will use it more than 4 hours a night. She continues on the Breo and also on the Incruse daily. She does have Xopenex that she uses as needed. But, does not use it more than twice a week. We did briefly review her last CT scan of the chest demonstrating small 4 mm pulmonary nodule. She is scheduled to have a repeat CT scan the fall of 2020. 08/23/2021 the patient is here for a pulmonary follow-up visit. Overall the patient has been still struggling with pain. She describes some chest discomfort. Moderate severity. Associated with palpitations.It is not allowing her to sleep. Primarily on the left shoulder area. It is likely musculoskeletal. It is reassuring that she did have a stress test recently demonstrating no ischemic changes which is very reassuring. Social reassuring that she had a recent CT scan of the chest about a year ago without any evidence of any abnormalities. She is scheduled to undergo repeat CT scan as part of the lung cancer screening program to better address the recent discomfort. In the meantime is reasonable for her to undergo blood work. She is already on gabapentin which she uses 3 times a day. On and have her increase the nighttime dose to help with neuropathic pain at night and also help her with sleep. I am hopeful that she will feel better by making that medication change. 12/20/2021 the patient is here for a pulmonary follow-up visit. Overall the patient has been doing well. she has not been using her CPAP therapy. Although she feels well and she is feeling like she is getting good sleep and waking up rested. the patient does carry some cardiovascular risk factors. Therefore, will consider repeating her sleep study at some point in the future. The p atient had a cardiac workup which was negative for any ischemic changes which is reassuring. In addition to that the patient does have underlying pulmonary nodules. She is taking part in the lung cancer screening program. She was supposed to have a CT scan in July 2021. Although, for some reason he did not happen. May have been issues with pandemic. I did restart to the lung cancer screening program to make sure that she gets a call and get her scheduled CT scan completed. Meantime she is going to continue with the current respiratory regimen which she seems to be tolerating. 02/24/2023 the patient is here for pulmonary follow-up visit. The patient is no longer using the CPAP. She could not tolerated. Although she is having hard time sleeping because of nasal congestion and significant allergies. She is taking Zyrtec with minimal response. Therefore will going to go ahead and add singular and also other nasal sprays. Hopefully we can improve her sleep by improving her nasal congestion and allergy symptoms allergy symptoms. The patient has not been using the Breo the Incruse. She has felt well. Although she does need a rescue inhaler which are per provide. The patient is participating in the lung cancer screening program. Her last CT scan was December 2021. She is due for CAT scan now. 03/03/2024 the patient is here for a pulmonary follow-up visit. Overall the patient has been doing fairly bad. She has not been able to use her respiratory medications the last 2 weeks. I believe her primary care doctor had been ordering them and they have been available. I did send all her medications over. She should be on Breo and Incruse. In addition to that she is having some breathlessness right now moderate severity. We did give her a treatment without albuterol and ipratropium. She did feel some relief. She has not having any wheezing so therefore him believe she needs any steroids. She also has diabetes I do not want to cause her hyperglycemia. At this point she is doing better will go ahead and just started all her medications. If the patient does not feel like she is getting any better she will call the office and will give her further recommendations. As far as her CPAP she has not been able to tolerated. I did request that she bring it in to the next visit we can try to adjust the pressures if she likes. 11/24/2024 the patient is here for pulmonary follow-up visit. She is still having hard time with the breathing. She has been on the Breo and Incruse. Still requiring her nebulizer a couple times a day. Feels chest tightness and wheezing. We did look at her allergy testing. She does have a significantly elevated IgE of about 400 and also has allergies to mold. Based on the fact that she is maximizing respiratory therapy and she continues to be have ongoing symptoms requiring rescue therapy on daily basis will go ahead and start her on Xolair. I did teach how to use his EpiPen and she will hopefully start getting her Xolair soon. In the meantime she does use CPAP at nighttime. The CPAP therapy is affecting beneficial. Will follow-up with her progress in the coming months. 03/28/2025 the patient is here for a pulmonary follow-up visit. She has multiple complaints. She complains of significant headaches and pressure sinuses. She did recently started nasal spray without any significant relief. In addition to that she complains of dyspnea on exertion and chest tightness and wheezing. She has been using all her respiratory medicine as prescribed although she has not been continuing to take the Xolair since now she is supposed to be doing it at home. I will reach out to our nurse to see if she can help her facilitate getting her injections so she can do them at home and then therefore improve her overall allergic reactions and asthma and rhinosinusitis. In the meantime will start her on doxycycline to treat her for sinusitis. Will hold off on any prednisone because of her diabetes. Consider Daliresp as a good option in the future if she needs to be on steroids for chronic bronchitis. Will go ahead and check an overnight oximetry to assess her oxygen levels at nighttime while sleeping specially with the underlying asthma COPD overlap syndrome. The patient will return in 4-6 months if she has any issues prior to this she will call for an earlier assessment. 09/11/2025 the patient is here for pulmonary follow-up visit. Overall she is doing okay although she is having hard time sleeping. She is no longer using the CPAP. She returned that after a few years. She could not tolerate it. The patient states that she is waking up tired. With the [place] score of 13/24. She does not like the feel that way. She has tried sleeping aids. She has fragmented sleep. She does have a psychiatrist who gives her medications. She does not have the list at this time. We did talk about herbal therapies. She will consider using melatonin and also taking valerian root. Because he does not always take her medications as prescribed. The patient is concerned about so many medications. In the meantime the patient continues use the Breo and the Incruse. There are affecting beneficial. She also continues with the Xolair. She does the self injections every 2 weeks. She still has nasal congestion. She has been using ipratropium nasal spray. I will resend her the Astelin and fluticasone to the pharmacy. We also talked about positional therapy. She is going to try to sleep elevated with a wedge. She has a hard time sleeping her side because of her shoulder issues. If she continues to be symptomatic even after deeper sleep and sleeping with a wedge then she can consider repeating the sleep study. Although she has resistant to the idea of going back to PAP thera py. We can also talk about other alternatives to sleep apnea if indeed she still has significant disease. The patient will return 6 months if she has any issues prior to this she can always call further recommendations. [facility] Medical History (Updated 03/28/25 @ 20:37 by Grover Wills MD) Chronic headaches Allergies Asthma-COPD overlap syndrome Asthma ANN on CPAP Pulmonary nodules Personal history of nicotine dependence Palpitations Family History (System 07/31/22 @ 09:04 by Saniya Alvarez) Other Asthma Social History Patient Tobacco Use Status: Former Tobacco user Review of Systems Const Reports headache(s) and Denies night sweats ENT Denies change in voice, Reports headache(s), Denies lip swelling, Denies mouth pain, Reports nasal congestion, Reports nasal discharge, Reports neck pain, Reports sinus pain and Denies tongue swelling Card Denies chest pain and Denies palpitations Resp Reports cough GI Denies abdominal pain Musc Denies no additional complaints, Reports back pain, Reports myalgias and Reports neck pain Neuro Denies Neuro-related abnormal movements and Reports headache(s) Psych Denies no additional complaints Endo Denies palpitations Dante/Lymph Denies easy bleeding and Denies lymphadenopathy Aller/Immun Denies lip swelling and Denies tongue swelling Physical Exam Vital Signs: Last Vital Signs Pulse 83 09/11/25 09:44 BP 140/76 H 09/11/25 09:44 Pulse Ox 97 09/11/25 09:44 Oxygen Delivery Method Room Air 09/11/25 09:44 BMI result Body Mass Index 36.5 Const General: alert Neck Neck: Yes normal visual inspection, Yes full ROM and Yes no lymphadenopathy Chest Chest palpation & inspection: normal inspection of the chest Resp Effort & Inspection: prolonged expiratory phase Auscultation: diminished lung sounds Cardio Rate: regular rate Rhythm: regular rhythm Heart sounds: S1 normal heart sound present and S2 normal heart sound present GI Palpation (GI): Soft to palpation and nontender Auscultation: normal bowel sounds Skin General skin exam: rashes and/or lesions noted Assessment & Plan Assessment & Plan (1) Allergies: Code(s): T78.40XA - Allergy, unspecified, initial encounter Category: Medical Qualifiers: Encounter type: initial encounter Qualified Code(s): T78.40XA - Allergy, unspecified, initial encounter (2) Chest pain: Code(s): R07.9 - Chest pain, unspecified Category: Medical Qualifiers: Chest pain type: intercostal pain Qualified Code(s): R07.82 - Intercostal pain (3) Asthma-COPD overlap syndrome: Code(s): J44.9 - Chronic obstructive pulmonary disease, unspecified Category: Medical Plan Continue Breo 200 continue Incruse daily short acting beta agonist, Xopenex as needed continue singulair continue astelin and fluticasone nasal spray CT scan of the chest through LDCT program gabapentin at night for sleep Xolair 375mg SC [id number] at home Epipen rx and provided teaching Follow-up in 4-6 months Medications: New melatonin 3 mg PO BEDTIME PRN 30 tabs 11RF sleep 30 days Refilled umeclidinium 62.5 mcg/actuation (Incruse Ellipta) 1 inh inhalation DAILY 30 ea 11RF 30 days J45.909 - Unspecified asthma, uncomplicated fluticasone propionate 50 mcg/actuation 2 sprays intranasal DAILY 15.8 mL 11RF 30 days J31.0 - Chronic rhinitis fluticasone furoate-vilanterol 200-25 mcg/dose (Breo Ellipta) 1 ea PO DAILY 60 ea 11RF J45.909 - Unspecified asthma, uncomplicated azelastine administer into each nostril 2 sprays intranasal BID 30 mL 11RF 30 days Coding Level of Care Code Complex visit Add On G2211 Diagnoses Allergy, initial encounter T78.40XA Encounter type: initial encounter Intercostal pain R07.82 Chest pain type: intercostal pain Asthma-COPD overlap syndrome J44.9 Time Spent (min) 16
[2025-09-11 09:44] VITALS: BP 140/76; PULSE 83; O2SAT 97; BMI 36.5
--- OUTSIDE RECORDS SUMMARY | 2025-09-11 11:20 | XMS_ITS | Clinical Summary ---
Author Organization [facility] [employer] [facility] Address [address] [place] [address] Phone Care Team Providers Care Bar Machine Operator Name Role Phone Perry Youssef Primary Care Provider [phone] Allergies Active Allergy Reactions Criticality Noted Date [...] EDT - 07/30/2025 3:00 PM EDT Emergency [facility] Emergency [address] [place] [address] Liliana Mathew MD Vertigo (Primary Dx) Discharge Disposition: Home or Self Care from Last 3 Months Medical History Medical History Date Comments Depression DX:Depression Polysubstance abuse ([facility] V24, [facility] V28) DX:Polysubstance abuse ([facility]) GERD (gastroesophageal reflux disease) DX:GERD (gastroesophageal reflux disease) Obesity DX:Obesity Diabetes mellitus ([facility] V 24, [facility] V28) DX:Diabetes mellitus ([facility]); COMMENT: type2 Osteoarthritis DX:Osteoarthriti s; COMMENT: both knees Vitamin D deficiency DX:Vitamin D deficiency Tachycardia DX:Tachycardia Hypertension DX:Hypertension COPD (chronic obstructive pu lmonary disease) ([facility] V24, [facility] V28) DX:COPD (chronic o bstructive pulmonary disease) ([facility]) Hemorrhoids DX:Hemorrhoids Plantar fasciitis DX:Plantar fas [...] - 100 mg/dL 07/30/2025 2:44 PM EDT [facility] Blood Capillary blood specimen / Unknown 07/30/2025 2:43 PM EDT 07/30/2025 2:45 PM EDT Liliana Mathew MD LAB POINT OF CARE TE ST DOCKED DEVICE UNSOLICITED RESULTS Final Result [facility] [address] [place] [address], [place] [phone] * XR Chest 2 Views (07/30/2025 1:45 PM EDT) Anatomical Region Laterality Modality Body Radiographic [place] ging 07/30/2025 1:53 PM EDT Impressions 07/30/2025 1:55 PM EDT No acute findings. -------- FINAL REPORT -------- Dictated By: Gui Chairez Dictated Date: 07/30/2025 13:53 ET Assigned Physician: Gui Chairez Reviewed and Electronically Signed By: Gui Chairez Signed Date: 07/30/2025 13:55 ET Workstation ID: [id number] Transcribed By: Self Edit Transcribed Date: 07/30/2025 [...] Signed Date: 07/30/2025 13:55 ET Workstation ID: [id number] Transcribed By: Self Edit Transcribed Date: 07/30/2025 13:53 ET Liliana Mathew MD IMG XR PROCEDURES Final Result * Troponin I high sensitivity (07/30/2025 1:04 PM EDT) High Sensitivity Troponin I 4 <=54 ng/L LAB CHEMISTRY METHOD 07/30/2025 2:08 PM EDT [facility] Blood Venous blood specimen / Unknown Venipuncture / Unknown 07/30/2025 1:04 PM EDT 07/30/2025 1:31 PM EDT [facility] - 07/30/2025 2:08 PM EDT High levels of biotin in samples may falsely decrease hsTroponin values. Use caution when interpreting hsTroponin results in patients taking biotin who exhibit renal impairment (eGFR <60) or in patients taking more than 20 mg/day of biotin. us Liliana Mathew MD LAB BLOOD ORDERABLES Final Resul t Performing Organization Address [facility] Co de Phone Number [facility] [address] [place] [address], [place] [phone] * D-dimer, quantitative (07/30/2025 1:04 PM EDT) D-Dimer, Quant (D-DU) <150 <=230 ng/mL DDU LAB COAGULATION METHOD 07/30/2025 1:50 PM EDT [facility] Blood Venous blood specimen / Unknown Venipuncture / Unknown 07/30/2025 1:04 PM EDT 07/30/2025 1:31 PM EDT [facility] - 07/30/2025 1:50 PM EDT D-Dimer <230 ng/mL (D-Dimer units) is the threshold for exclusion of DVT/PE. D-Dimer may be elevated in: Critically ill, severely infected, trauma patients, DIC, acute CVA, acute PA, unstable angina, AF, old age, , and smoking. D-Dimer may be decreased with: Initiation of heparin therapy and oral anticoagulants. us Liliana Mathew MD LAB BLOOD ORDERABLES Final Resul t Performing Organization Address [facility]/ZIP Co de Phone Number [facility] [address] [place] [address], [place] [phone] * ECG 12 lead (07/30/2025 12:12 PM EDT) [facility] Ventricular Rate ECG 79 BPM GEMUSE Atrial Rate 79 BPM GEMUSE P-R Interval 134 ms GEMUSE QRS Duration 86 ms GEMUSE Q-T Interval 372 ms GEMUSE QTc 426 ms GEMUSE P Wave Hitchcock 58 degrees GEMUSE R Hitchcock 10 degrees GEMUSE T Hitchcock 23 degrees GEMUSE ECG Interpretation Normal sinus rhythm Normal ECG When compared with ECG of 08-DEC-2024 15:09, No significant change was found Confirmed by MD Arnaud, Yogesh ([id number]) on 07/31/2025 11:43:15 AM GEMUSE 07/30/2025 12:1 2 PM EDT 07/31/2025 11:43 AM EDT us Liliana Mathew MD ECG ORDERABLES Final Result GEMUSE * (ABNORMAL) CBC auto differential (07/30/2025 12:06 PM EDT) [facility] WBC 7.5 4.8 - 10.8 K/mcL LAB HEMETOLOGY METHOD 07/30/2025 1:02 PM EDT [facility] RBC 4.60 3.80 - 4.80 M/mcL LAB HEMETOLOGY METHOD 07/30/2025 1:02 PM EDT [facility] Hemoglobin 12.6 11.5 - 16.0 g/dL LAB HEMETOLOGY METHOD 07/30/2025 1:02 PM EDT [facility] Hematocrit 39.7 35.0 - 47.0 % LAB HEMETOLOGY METHOD 07/30/2025 1:02 PM EDT [facility] MCV 87.1 79.0 - 98.0 FL LAB HEMETOLOGY METHOD 07/30/2025 1:[facility] MCH 27.6 27.0 - 32.0 pcg LAB HEMETOLOGY METHOD 07/30/2025 1:02 PM EDT [facility] MCHC 31.7(L) 32.0 - 37.0 g/dL LAB HEMETOLOGY METHOD 07/30/2025 1:02 PM [facility] RDW 13.4 11.0 - 15.0 % LAB HEMETOLOGY METHOD 07/30/2025 1:02 PM [facility] Platelets 240 130 - 400 K/mcL LAB HEMETOLOGY METHOD 07/30/2025 1:02 PM [facility] MPV 11.5(H) 7.0 - 11.0 FL LAB HEMETOLOGY METHOD 07/30/2025 1:02 PM [facility] NRBC 0.0 <1.0 % LAB HEMETOLOGY METHOD 07/30/2025 1:02 PM [facility] NRBC Absolute 0.00 <0.10 K/mcL LAB HEMETOLOGY METHOD 07/30/2025 1:02 PM [facility] Neutrophils Relative 62.8 % LAB HEMETOLOGY METHOD 07/30/2025 1:02 [facility] Lymphocytes Relative 31.2 % LAB HEMETOLOGY METHOD 07/30/2025 1:02 PM [facility] Monocytes Relative 4.9 % LAB HEMETOLOGY METHOD 07/30/2025 1:02 PM [facility] Eosinophils Relative 0.4 % LAB HEMETOLOGY METHOD 07/30/2025 1:02 PM [facility] Basophils Relative 0.4 % LAB HEMETOLOGY METHOD 07/30/2025 1:02 PM [facility] Immature Granulocytes Relative 0.3 % LAB HEMETOLOGY METHOD 07/30/2025 1:02 PM [facility] Neutrophils Absolute 4.72 1.50 - 7.00 K/mcL LAB HEMETOLOGY METHOD 07/30/2025 1:02 PM EDT [facility] Lymphocytes Absolute 2.34 1.00 - 5.00 K/mcL LAB HEMETOLOGY METHOD 07/30/2025 1:02 PM EDT [facility] Monocytes Absolute 0.37 0.20 - 1.00 K/mcL LAB HEMETOLOGY METHOD 07/30/2025 1:02 PM EDT [facility] Eosinophils Absolute 0.03 0.00 - 0.50 K/[facility] LAB HEMETOLOGY METHOD 07/30/2025 1:02 PM EDT [facility] Basophils Absolute 0.03 0.00 - 0.20 K/mcL LAB HEMETOLOGY METHOD 07/30/2025 1:02 PM EDT [facility] Immature Granulocytes Absolute 0.02 0.00 - 0.03 K/mcL LAB HEMETOLOGY METHOD 07/30/2025 1:02 PM EDT [facility] Blood Venous blood specimen / Unknown Venipuncture / Unknown 07/30/2025 12:06 PM EDT 07/30/2025 12:56 PM EDT us Liliana Mathew MD LAB BLOOD ORDERABLES Final Resul t Performing Organization Address [facility]/ZIP Co de Phone Number [facility] [address] [place] [address], * (ABNORMAL) Magnesium (07/30/2025 12:06 PM EDT) Magnesium 1.8(L) 1.9 - 2.6 mg/dL LAB CHEMISTRY METHOD 07/30/2025 1:41 PM EDT [facility] Comment:Hemolysis present Blood Venous blood specimen / Unknown Venipuncture / Unknown 07/30/2025 12:06 PM EDT 07/30/2025 12:56 PM EDT us Liliana Mathew MD LAB BLOOD ORDERABLES Final Resul t [facility] [address] [place] [address], [place] [phone] * Basic metabolic panel (07/30/2025 12:06 PM EDT) Sodium 143 133 - 145 mmol/L LAB CHEMISTRY METHOD 07/30/2025 1:41 PM [facility] Potassium 4.0 3.5 - 5.5 mmol/L LAB CHEMISTRY METHOD 07/30/2025 1:41 PM [facility] Comment:Hemolysis present Chloride 110 96 - 110 mmol/L LAB CHEMISTRY METHOD 07/30/2025 1:41 PM [facility] CO2 27 21 - 32 mmol/L LAB CHEMISTRY METHOD 07/30/2025 1:41 PM [facility] Anion Gap 6 3 - 11 LAB CHEMISTRY METHOD 07/30/2025 1:41 PM [facility] Glucose 71 70 - 100 mg/dL LAB CHEMISTRY METHOD 07/30/2025 1:41 PM [facility] BUN 13 5 - 25 mg/dL LAB CHEMISTRY METHOD 07/30/2025 1:41 PM [facility] Creatinine 0.74 0.50 - 1.10 mg/dL LAB CHEMISTRY METHOD 07/30/2025 1:41 PM [facility] eGFR 91 >=60 mL/min/1. 73m2 LAB CHEMISTRY METHOD 07/30/2025 1:41 PM [facility] Comment:Calculation based on the Chronic Kidney Disease Epidemiology Collaboration (CKD-EPI) equation refit without adjustment for race. BUN/Creatinine Ratio 17.6 LAB CHEMISTRY METHOD 07/30/2025 1:41 PM [facility] Calcium 9.5 8.5 - 10.5 mg/dL LAB CHEMISTRY METHOD 07/30/2025 1:41 PM [facility] Blood Venous blood specimen / Unknown Venipuncture / Unknown 07/30/2025 12:06 PM EDT 07/30/2025 12:56 PM EDT us Liliana Mathew MD LAB BLOOD ORDERABLES Final Resul t [facility] [address] [place] [address], * BURAK SCREENING DIGITAL (09/07/2023 3:19 PM EST) Anatomical Region Laterality Modality Mammography 09/07/2023 2:01 PM EST Narrative 09/07/2023 3:[address] [facility] Diagnostic Imaging Department [address] [place] [address] Patient: JASMEET WILLS /Age/Sex: 1960 - 62 - F Unit#: [id number] Location/Status: [facility] CLI Mnemonic/Ordering Site: [facility] Ordering Physician: PERRY YOUSSEF Burak Screening Digital - 09/07/23 - 3026 Report Status:Signed EXAM: Burak Screening Digital EXAM DATE AND TIME: 09/07/2023 2:24 PM HISTORY: Annual screening COMPARISON: Multiple exams dating back to 2002 TECHNIQUE: Bilateral digital breast tomosynthesis was performed in the CC and MLO projections. Computer aided detection with [employer] 3D 3.1 was employed. TISSUE DENSITY: b. [...] Routine screening mammogram BILATERAL in 1 year. 5091F, 7094F Dictating Physician: STEFANIE BOSE MD Electronically Signed by: STEFANIE BOSE MD Dic Date/Time: 09/07/231517 Sign date/Time: 09/07/231518 Procedure Note Stefanie Bose MD - 11/17/2023 [facility] Diagnostic Imaging Department [address] [place] [address] Patient: JASMEET WILLSO.B./Age/Sex: 1960 - 62 - F Unit#: [id number] [facility]ing Site[facility] Ordering Physician: PERRY YOUSSEF [facility] Screening Digital - 09/07/231422 Report Status:Signed EXAM: [facility] Screening Digital EXAM DATE AND [...] Maintenance Insurance MEDICAID - [place] Care Teams Bar Machine Operator Relationship Specialty Start Date End Date Perry Youssef PA [address] [place] [phone] PCP - General Internal Medicine 07/27/20
--- OUTSIDE RECORDS SUMMARY | 2025-09-11 11:20 | XMS_ITS | Clinical Summary ---
Author Organization [employer] Address [address] [place] [address] Care Team Providers Care Retail Equipment Associate Name Role Phone Unavailable Primary Care Provider Unavailabl e Encounters Date Type Department Care Team Description 09/02/2025 Orders Only [facility] External Provider, [facility] from Last 3 Months Social History Tobacco [...] Procedure Name Priority Date/Time Associated Diagnosis Comments LDCT LUNG SCREENING Routine 09/04/2025 4 :11 PM EST from Last 3 Months Results * CT Lung Screening Low dose (09/04/2025 4:11 PM EST) Anatomical Region Laterality Modality Lung Computed Tomogra phy 09/04/2025 4:11 PM EST Narrative 09/04/2025 4:13 PM EST [place] [address] CT Scan Report Signed Patient: Zainab Wills MR#: [id number] : 1960 Acct:[id number] Age/Sex: 64 / F ADM Date: 09/02/25 Loc: HO.CT Attending Dr: Liliana Rosales PA-C Ordering Physician: Liliana Rosales PA-C Date of Service: 09/02/25 Procedure(s): CT lung screening Accession Number(s): [id number] cc: Sae Lackey MD; Liliana Rosales PA-C Report Number: [id number]: Total DLP = 109.00 mGy-cm Reason for Exam: Z87.891 - Personal history of nicotine dependence CLINICAL HISTORY: Z87.891 - Personal history of nicotine dependence CT lung cancer screening Technique: Axial CT images of the chest using low-dose technique. Effective radiation dose: DLP 104.3 mGy.cm, CTDIvol 3.59 mGy Referring provider counseled the patient on shared decision-making for LDCT screening. Additional counseling was provided on smoking cessation. Comparison: 08/17/2024 Findings: Lung nodules RUL: None RML: None RLL: None ADAIR: None Lingula: None LLL: None COPD: None Pleural spaces: Normal Coronary artery calcifications: Mild Limited upper abdomen: Unremarkable Other: None Impression: LungRADS 1: Negative exam. Continue annual screening with low dose Chest CT in 12 months. ##L1## This document has been electronically signed by: Khris Hobson MD on 09/04/2025 16:11:56 Dictated By: Khris Hobson MD Signed By: <Electronically signed by Khris Hobson MD in OV> 09/04/25 1612 DD/ 1611 TD/TT: 09/04/25 1611 Monorail Helper: Procedure Note Donotuseinterpreter, Image - 09/05/[address] [place] [address] [address] Scan Report Signed Patient: Gracie Wills#: [id number] : 2Acct:[id number] Age/Sex: 64 / FADM Date: 09/02/25 Loc: HO.CT Attending Dr: Liliana Rosales PA-C Ordering Physician: Liliana Rosales PA-C Date of Service: 09/02/25 Procedure(s): CT lung screening Accession Number(s): [id number] cc: Sae Lackey MD; Liliana Rosales PA-C Report Number: [id number]: Total DLP = 109.00 mGy-cm Reason for Exam: Z87.891 - Personal history of nicotine dependence CLINICAL HISTORY: Z87.891 - Personal history of nicotine dependence CT lung cancer screening Technique: Axial CT images of the chest using low-dose technique. Effective radiation dose: DLP 104.3 mGy.cm, CTDIvol 3.59 mGy Referring provider counseled the patient on shared decision-making for LDCT screening. Additional counseling was provided on smoking cessation. Comparison: 08/17/2024 Findings: Lung nodules RUL: None RML: None RLL: None ADAIR: None Lingula: None LLL: None COPD: None Pleural spaces: Normal Coronary artery calcifications: Mild Limited upper abdomen: Unremarkable Other: None Impression: LungRADS 1: Negative exam. Continue annual screening with low dose Chest CT in 12 months. ##L1## This document has been electronically signed by: Khris Hobson MD on 09/04/2025 16:11:56 Dictated By: Khris Hobson MD Signed By: <Electronically signed by Khris Hobson MD in OV> 09/04/25 1612 DD/ 1611 TD/TT: 09/04/25 1611 Monorail Helper: [facility] External Provider IMG CT PROCEDURES Final Result from Last 3 Months
== END 2025-09-11 10:12 | disposition home or self-care (01) ==
PROVIDERS: PCP Physician Assistant; Visit Provider Hospitalist
DX: T78.40XA Allergy, unspecified, initial encounter (principal); R07.82 Intercostal pain; J44.9 Chronic obstructive pulmonary disease, unspecified
CPT/HCPCS: 99214

== ENCOUNTER → 2025-09-11 09:34 | Outpatient (BNVA) | payer MEDICAID, SELFPAY | PROVIDERS: PCP Physician Assistant; Visit Provider Hospitalist | DX: J44.89 Other specified chronic obstructive pulmonary disease (principal); R07.82 Intercostal pain; T78.40XA Allergy, unspecified, initial encounter; Z79.51 Long term (current) use of inhaled steroids; Z79.899 Other long term (current) drug therapy | CPT/HCPCS: 99212 ==